=== PATIENT | female | born 1990 | race Caucasian/White ===

== ENCOUNTER 2022-03-01 10:57 | Inpatient (IN) | payer OTHER, SELFPAY ==
[2022-03-01] VITALS (193 sets, daily range): BP systolic 90–147; BP diastolic 49–110; PULSE 75–163; TEMP 36.6–38.3; O2SAT 72–100; BMI 36.6
--- NOTE | 2022-03-01 11:41 | P.HP_ITS ---
Obstetrics - Admit Note Admission Note: record reviewed. No pertinent additions to the history and/or any subsequent changes in the physical findings that are not consistent with the expected course of the were found. Pt admitted to [facility] at 35.1 weeks gestation, 3-/-1 Clear odorless fluid, hx obesity, hyperthyroid, GBS unknown, anticipate vaginal delivery Additions to the history and/or subsequent changes in the physical findings follow. None.
[2022-03-01 11:54] LABS: Basophils Absolute Auto 0.1 K/mm3 (0.0-0.1); Basophils Percent Auto 0.3 % (0.2-1.2); Eosinophils Absolute Auto 0.1 K/mm3 (0-0.3); Eosinophils Percent Auto 0.4 % (0-4.4); Hematocrit 36.4 % (37.0-47.0); Hemoglobin 12.5 g/dL (12.0-15.0); Immature Granulocyte Absolute 0.14 K/mm3 (0.00-0.031); Immature Granulocyte Percent A 0.7 % (0-0.5); Lymphocytes Absolute Auto 1.45 K/mm3 (0.9-3.2); Lymphocytes Percent Auto 7.6 % (18.3-44.2); Mean Corpuscular HGB Conc 34.3 g/dl (32-36); Mean Corpuscular Hemoglobin 30.7 pg (26-34); Mean Corpuscular Volume 89.4 fl (80-100); Monocytes Absolute Auto 0.8 K/mm3 (0.1-0.6); Monocytes Percent Auto 4.2 % (2.6-8.5); Neutrophils Absolute Auto 16.5 K/mm3 (1.3-6.7); Neutrophils Percent Auto 86.8 % (45.5-73.1); Platelet Count Result 169 k/mm3 (150-375); Red Blood Count 4.07 M/mm3 (4.2-5.4); Red Cell Distribution Width 12.9 % (11.5-14.5)
[2022-03-01] MEDS: fentaNYL CITRATE INJ (*CRX) 100 MCG/2 ML VIAL IV PUSH (11:58)
[2022-03-01] MEDS: LACTATED RINGERS 1,000 ML 125 ML IV CONT ×2 (11:59→16:06)
[2022-03-01] MEDS: AMPICILLIN 2 GM/NS 100 ML 2 GM/100 ML BAG IVPB (12:01)
--- NOTE | 2022-03-01 12:31 | WPDANESEPPF ---
Anes - Initial Pre Proc Eval Date/Time: 03/01/22 12:31 Surgeon: Kari Reinoso MD Pre Op Diagnosis: CONTRACTIONS Patient Data Age: 31 Gender: F Height: 1.57 m Weight: 91 kg Last Vital Signs Pulse 83 03/01/22 12:31 BP 131/84 03/01/22 12:31 O2 Del Method Room Air 03/01/22 12:06 Allergies Allergy/AdvReac Type Severity Reaction Status Date / Time No Known Allergies Allergy Verified 03/01/22 11:36 Home Medications Medication Instructions Recorded Confirmed Type vit no.133-ferrous 1 tablet PO DAILY 03/01/22 03/01/22 History fumarate 28 mg-folic acid 800 mcg tablet () Laboratory Tests 03/01/22 03/01/22 03/01/22 11:38 11:38 11:38 WBC 19.0 K/mm3 H K/mm3 (4.5-10.0) RBC 4.07 M/mm3 L M/mm3 (4.2-5.4) Hgb 12.5 g/dL g/dL (12.0-15.0) Hct 36.4 % L % (37.0-47.0) MCV 89.4 fl fl (80-100) MCH 30.7 pg pg (26-34) MCHC 34.3 g/dl g/dl (32-36) RDW 12.9 % % (11.5-14.5) Plt Count 169 k/mm3 k/mm3 (150-375) MPV 12.0 fl H fl (7.4-10.4) Immature Gran % (Auto) 0.7 % H % (0-0.5) Neut % (Auto) 86.8 % H % (45.5-73.1) Lymph % (Auto) 7.6 % L % (18.3-44.2) Robertson % (Auto) 4.2 % % (2.6-8.5) Eos % (Auto) 0.4 % % (0-4.4) Baso % (Auto) 0.3 % % (0.2-1.2) Lymph # (Auto) 1.45 K/mm3 K/mm3 (0.9-3.2) Robertson # (Auto) 0.8 K/mm3 H K/mm3 (0.1-0.6) Eos # (Auto) 0.1 K/mm3 K/mm3 (0-0.3) Baso # (Auto) 0.1 K/mm3 K/mm3 (0.0-0.1) Abs Immat Gran (auto) 0.14 K/mm3 H K/mm3 (0.00-0.031) Absolute Neuts (auto) 16.5 K/mm3 H K/mm3 (1.3-6.7) Absolute Nucleated RBC 0.0 K/mm3 K/mm3 (0.0-0.012) Nucleated RBC % 0.0 % % (0.0-0.2) RPR Pending Blood Type O Positive Antibody Screen Pending Patient hx anesthesia problems: none Family hx anesthesia problems: none Results Review: All pre-operative results and documents have been reviewed as part of the pre-operative evaluation. [facility], LAT[facility] Social History Social History Substance use: never Has the Lack of Transportation Kept You From Medical Appointments or From Getting Medications?: No Within the Past 12 Months, Were You Worried Whether Your Food Would Run Out Before You Got Money to Buy More?: Never True What is Your Housing Situation Today?: I Have Housing Are You Worried That in the Next 2 Months, You May Not Have Your Own Housing to Live In?: No Do You Have Trouble Paying Your Heating Or Electricity Bill?: No Do You Have Trouble Paying For Medicines?: No Are You Currently Unemployed and Looking for Work?: No Highest Level of Education Completed: High School Diploma/GED Do You Have Trouble With Childcare or the Care of a Family Member?: No Spiritual care concerns: No Anes - Eval Final PreProcedure Day of Procedure 03/01/22 12:31 Patient weight: overweight Heart: regular rate and rhythm Lungs: clear to auscultation and normal air movement Airway: Mallampati scale class II Neurological: alert and oriented Last oral intake: >/= 8 hours ASA classification: II Emergent: no Anesthetic plan: proceed Anesthesia type and monitoring: regional epidural Results Review: All pre-operative results and documents have been reviewed as part of the pre-operative evaluation. Informed Consent: The patient's anesthetic plan and its attendant risks and benefits were discussed with the patient/family/POA. Questions were solicited and answers provided to the satisfaction of the patient/family/POA.
[2022-03-01] MEDS: ONDANSETRON INJ 4 MG/2 ML VIAL IV PUSH (15:45)
[2022-03-01] MEDS: AMPICILLIN 1 GM/NS 50 ML 1 GM/50 ML BAG IVPB (16:05)
[2022-03-01] MEDS: OXYTOCIN 30 UNITS/NS 500 ML 30 UNITS/500 ML BAG 999 UNITS IV CONT ×2 (20:38→23:15)
--- NOTE | 2022-03-01 20:52 | PM.OBPRVD ---
OB - Delivery Note Procedure Delivery date: 03/01/22 Procedure: Events: Premature Rupture of Membranes Intrapartal Events: Chorioamnionitis Induction method: None Delivery augmentation: Pitocin Delivery monitor: External FHT and External Uterine Route of delivery: Laceration Description: None Specimen: Yes Quantitative Blood Loss (ml): 210 Anesthesia type: Epidural Disposition: Floor [place] Baby Date of : 03/01/22 Time of : 20:38 Weeks of gestation at delivery: 35 gender: Female Weight (pounds): 5 Weight (ounces): 7 presentation: vertex position: Right Occiput Anterior Placenta delivery description: Spontaneous, Manual Removal and Other (placenta had foul odor, will treat for presumed chorio. nursery informed) Cord Vessel Description: 3 Vessels and Clamped/Cut score one minute: 6 score five minutes: 8
[2022-03-01] MEDS: CLINDAMYCIN 900 MG/D5W 50 ML 900 MG/50 ML PIGGYBACK 50 MG IVPB (21:41)
[2022-03-01] MEDS: miSOPROStol 200 MCG TABLET 1000 MCG (23:22)
[2022-03-01] MEDS: fentaNYL CITRATE INJ (*CRX) 100 MCG/2 ML VIAL 50 MCG IV PUSH ×2 (23:28→23:43)
[2022-03-01] MEDS: METHYLERGONOVINE MALEATE 0.2 MG/ML VIAL IM (23:46)
[2022-03-02] VITALS (20 sets, daily range): BP systolic 90–124; BP diastolic 49–85; PULSE 75–141; RESP 16–18; TEMP 36.3–38.4; O2SAT 95–100
[2022-03-02] MEDS: GENTAMICIN SULFATE INJ 330 MG in DEXTROSE 5% 100 ML 108.25 MG IVPB (01:00)
--- NOTE | 2022-03-02 01:08 | PM.OBPNVD ---
OB - PN: Subj Subjective Date/time seen: 03/02/22 01:08 called back to evaluate bleeding OB - PN: Obj Data Labs CBC & Chem 7: 03/01/22 11:38 Labs: Laboratory Results - last 24 hr 03/01/22 03/01/22 11:38 11:38 WBC 19.0 H RBC 4.07 L Hgb 12.5 Hct 36.4 L MCV 89.4 MCH 30.7 MCHC 34.3 RDW 12.9 Plt Count 169 MPV 12.0 H Immature Gran % (Auto) 0.7 H Neut % (Auto) 86.8 H Lymph % (Auto) 7.6 L [place] % (Auto) 4.2 Eos % (Auto) 0.4 Baso % (Auto) 0.3 Lymph # (Auto) 1.45 [place] # (Auto) 0.8 H Eos # (Auto) 0.1 Baso # (Auto) 0.1 Abs Immat Gran (auto) 0.14 H Absolute Neuts (auto) 16.5 H Absolute Nucleated RBC 0.0 Nucleated RBC % 0.0 Blood Type O Positive Antibody Screen Negative OB - PN A/P Assessment and Plan (1) hemorrhage: Code(s): O72.1 - Other immediate hemorrhage Status: Acute Plan 1. pp hemorrhage cont to monitor labs in am Time Spent With Patient Time: Total time spent is greater than 50% in coordination of care (as documented) at patient's floor/unit and/or counseling patient: Review of Systems Genitourinary: Comments: Speculum placed and clots removed with ring forceps, US revealed endometrial stripe small amount of fluid, fundus firm, bleeding stable
--- NOTE | 2022-03-02 01:46 | OBPPTRN ---
03/02/2022 at 0100 Patient transferred in wheelchair to post room #288. Support person present. Oriented to unit, room, information board, rooming in, admission packet and security measures. Patient verbalizes understanding.
[2022-03-02] MEDS: OXYTOCIN 30 UNITS/NS 500 ML 30 UNITS/500 ML BAG 999 UNITS IV CONT (01:50)
[2022-03-02] MEDS: IBUPROFEN 600 MG TABLET PO ×2 (05:34→12:50)
[2022-03-02 06:37] LABS: Basophils Absolute Auto 0.1 K/mm3 (0.0-0.1); Basophils Percent Auto 0.3 % (0.2-1.2); Eosinophils Absolute Auto 0.1 K/mm3 (0-0.3); Eosinophils Percent Auto 0.3 % (0-4.4); Hematocrit 26.8 % (37.0-47.0); Hemoglobin 9.2 g/dL (12.0-15.0); Immature Granulocyte Absolute 0.15 K/mm3 (0.00-0.031); Immature Granulocyte Percent A 0.8 % (0-0.5); Lymphocytes Absolute Auto 2.17 K/mm3 (0.9-3.2); Lymphocytes Percent Auto 11.2 % (18.3-44.2); Mean Corpuscular HGB Conc 34.3 g/dl (32-36); Mean Corpuscular Hemoglobin 31.4 pg (26-34); Mean Corpuscular Volume 91.5 fl (80-100); Mean Platelet Volume 12.5 fl (7.4-10.4); Monocytes Absolute Auto 1.3 K/mm3 (0.1-0.6); Monocytes Percent Auto 6.9 % (2.6-8.5); Neutrophils Absolute Auto 15.6 K/mm3 (1.3-6.7); Neutrophils Percent Auto 80.5 % (45.5-73.1); Platelet Count Result 154 k/mm3 (150-375); Red Blood Count 2.93 M/mm3 (4.2-5.4); Red Cell Distribution Width 12.9 % (11.5-14.5); White Blood Count 19.4 K/mm3 (4.5-10.0)
--- NOTE | 2022-03-02 07:34 | P.PNOB_ITS ---
OB - PN: Subj Subjective Date/time seen: 03/02/22 07:34 Patient comments: no complaints and pain well controlled baby status: doing well and bottle feeding well OB - PN: Obj Data Labs CBC & Chem 7: 03/02/22 05:27 Labs: Laboratory Results - last 24 hr 03/01/22 03/01/22 03/02/22 11:38 11:38 05:27 WBC 19.0 H RBC 4.07 L Hgb 12.5 Cancelled Hct 36.4 L Cancelled MCV 89.4 MCH 30.7 MCHC 34.3 RDW 12.9 Plt Count 169 MPV 12.0 H Immature Gran % (Auto) 0.7 H Neut % (Auto) 86.8 H Lymph % (Auto) 7.6 L [place] % (Auto) 4.2 Eos % (Auto) 0.4 Baso % (Auto) 0.3 Lymph # (Auto) 1.45 [place] # (Auto) 0.8 H Eos # (Auto) 0.1 Baso # (Auto) 0.1 Abs Immat Gran (auto) 0.14 H Absolute Neuts (auto) 16.5 H Absolute Nucleated RBC 0.0 Nucleated RBC % 0.0 Blood Type O Positive Antibody Screen Negative 03/02/22 05:27 WBC 19.4 H RBC 2.93 L Hgb 9.2 L D Hct 26.8 L MCV 91.5 MCH 31.4 MCHC 34.3 RDW 12.9 Plt Count 154 MPV 12.5 H Immature Gran % (Auto) 0.8 H Neut % (Auto) 80.5 H Lymph % (Auto) 11.2 L [place] % (Auto) 6.9 Eos % (Auto) 0.3 Baso % (Auto) 0.3 Lymph # (Auto) 2.17 [place] # (Auto) 1.3 H Eos # (Auto) 0.1 Baso # (Auto) 0.1 Abs Immat Gran (auto) 0.15 H Absolute Neuts (auto) 15.6 H Absolute Nucleated RBC 0.0 Nucleated RBC % 0.0 Blood Type Antibody Screen OB - PN A/P Plan day: 1 Plan: routine care Comments: Home tomorrow. Baby 35w but doing well. Time Spent With Patient Time: Total time spent is greater than 50% in coordination of care (as documented) at patient's floor/unit and/or counseling patient: Time with patient: less than 15 minutes Exam Narrative: NAD abdomen soft, nontender, fundus firm below the umbilicus Extremities nontender, 1+ edema
[2022-03-02 08:29] LABS: Rapid Plasma Reagin Non-Reactive (NonReactive)
[2022-03-02] MEDS: DOCUSATE SODIUM 100 MG CAPSULE PO ×2 (08:50→16:37)
[2022-03-02] MEDS: POLYSACCHARIDE IRON COMPLEX 150 MG CAPSULE PO ×2 (08:50→16:37)
[2022-03-02] MEDS: AMPICILLIN 1 GM/NS 50 ML 1 GM/50 ML BAG IVPB ×4 (08:51→19:49)
[2022-03-02 08:58] LABS: Estimated CRCL calculation 103 ml/min; Estimated Glomerular Filt Rate > 60
[2022-03-02] MEDS: CLINDAMYCIN 900 MG/D5W 50 ML 900 MG/50 ML PIGGYBACK 50 MG IVPB ×2 (09:42→17:21)
[2022-03-02 12:45] LABS: Gentamicin Random 1.1 ug/mL (5.0-12.0)
--- NOTE | 2022-03-02 14:04 | WPDANLDPN2 ---
Anes-Prog Note L&D Date/Time: 03/02/22 14:04 Comfortable throughout: labor and delivery Neuraxial method: epidural Epidural/Spinal procedure site: clean & non-tender Neuro status: Neuro function grossly intact. Cardiovascular status: normal Respiratory status: normal Airway patency: baseline Mental status: baseline Post-Op hydration status: normal Vital Signs: Last Vital Signs Temp 36.4 C 03/02/22 11:43 Pulse 94 03/02/22 11:43 Resp 16 03/02/22 11:43 BP 109/55 L 03/02/22 11:43 Pulse Ox 99 03/02/22 11:43 O2 Del Method Room Air 03/01/22 12:06 Pain score (VAS): 2 I/O: Intake & Output 03/01/22 03/02/22 03/02/22 23:59 07:59 15:59 Intake Total 1500 50 Output Total 210 938 Balance 1290 -938 50 Post-procedural complaints: none Patient feedback: Patient satisfied with anesthetic care.
[2022-03-03] MEDS: AMPICILLIN 1 GM/NS 50 ML 1 GM/50 ML BAG IVPB ×3 (00:23→07:47)
[2022-03-03 00:30] VITALS: BP 88/52; PULSE 88; RESP 18; TEMP 36.9; O2SAT 99
[2022-03-03] MEDS: CLINDAMYCIN 900 MG/D5W 50 ML 900 MG/50 ML PIGGYBACK 50 MG IVPB ×2 (01:04→09:27)
[2022-03-03] MEDS: SODIUM CHLORIDE 0.9% IV 250 ML 30 ML (01:05)
[2022-03-03] MEDS: GENTAMICIN SULFATE INJ 330 MG in DEXTROSE 5% 100 ML 100 MG IVPB (02:14)
[2022-03-03 04:28] VITALS: BP 108/54; PULSE 80; RESP 18; TEMP 36.6; O2SAT 100
[2022-03-03] MEDS: TETANUS,DIPHTHERIA,AC PERTUSSIS ADULT (0.5 ML) BOOSTRIX IM (04:31)
[2022-03-03] MEDS: DOCUSATE SODIUM 100 MG CAPSULE PO ×2 (07:49→16:46)
[2022-03-03] MEDS: POLYSACCHARIDE IRON COMPLEX 150 MG CAPSULE PO ×2 (07:49→16:46)
[2022-03-03] MEDS: IBUPROFEN 600 MG TABLET PO (07:49)
--- NOTE | 2022-03-03 07:57 | PM.OBPNVD ---
OB - PN: Subj Subjective Date/time seen: 03/03/22 07:57 Patient comments: no complaints and pain well controlled baby status: doing well and bottle feeding well [place] feeding status: exclusively bottle feeding Narrative: Afebrile since abx started. CBC still pending. Feeling ok. OB - PN: Obj Data Labs CBC & Chem 7: 03/02/22 05:27 03/02/22 08:34 Labs: Laboratory Results - last 24 hr 03/01/22 03/02/22 03/02/22 11:38 08:34 12:12 Creatinine 0.70 Estim Creat Clear Calc 103 Estimated GFR > 60 Random Gentamicin 1.1 L RPR Non-reactive OB - PN A/P Assessment and Plan (1) Chorioamnionitis, delivered, current hospitalization: Code(s): O41.1290 - Chorioamnionitis, unspecified trimester, not applicable or unspecified Status: Acute (2) , delivered: Code(s): O80 - Encounter for full-term uncomplicated delivery Status: Acute Plan day: 2 Plan: routine care Comments: may stop abx if WBC improved- CBC pending Will hold DC until tomorrow to make sure afebrile once abx DCed. Time Spent With Patient Time: Total time spent is greater than 50% in coordination of care (as documented) at patient's floor/unit and/or counseling patient: Time with patient: less than 15 minutes Exam Narrative: NAD abdomen soft, nontender, fundus firm below the umbilicus Extremities nontender, 1+ edema
[2022-03-03 08:15] VITALS: BP 103/51; PULSE 65; RESP 16; TEMP 36.5; O2SAT 99
[2022-03-03 09:14] LABS: Basophils Percent Auto 0.3 % (0.2-1.2); Eosinophils Absolute Auto 0.2 K/mm3 (0-0.3); Eosinophils Percent Auto 1.9 % (0-4.4); Hematocrit 24.6 % (37.0-47.0); Hemoglobin 8.1 g/dL (12.0-15.0); Immature Granulocyte Absolute 0.06 K/mm3 (0.00-0.031); Immature Granulocyte Percent A 0.5 % (0-0.5); Lymphocytes Absolute Auto 1.66 K/mm3 (0.9-3.2); Lymphocytes Percent Auto 14.4 % (18.3-44.2); Mean Corpuscular HGB Conc 32.9 g/dl (32-36); Mean Corpuscular Hemoglobin 30.5 pg (26-34); Mean Corpuscular Volume 92.5 fl (80-100); Monocytes Absolute Auto 0.8 K/mm3 (0.1-0.6); Monocytes Percent Auto 6.5 % (2.6-8.5); Neutrophils Absolute Auto 8.8 K/mm3 (1.3-6.7); Neutrophils Percent Auto 76.4 % (45.5-73.1); Platelet Count Result 155 k/mm3 (150-375); Red Blood Count 2.66 M/mm3 (4.2-5.4); Red Cell Distribution Width 13.3 % (11.5-14.5); White Blood Count 11.5 K/mm3 (4.5-10.0)
[2022-03-03 19:47] VITALS: BP 111/60; PULSE 98; RESP 16; TEMP 36.9; O2SAT 100
--- NOTE | 2022-03-04 07:00 | PC.NURSE ---
PT introductions made and plan of care discussed per post , pain management, bottle feeding, daily care activities and pending discharge to home. PT sole recipient of such instructions and no barriers to learning identified at this time. PT received such instructions per one to one discussion, mom baby care guide and demonstrations this shift. PT verbalized understanding of such care.
--- NOTE | 2022-03-04 07:39 | P.PNOB_ITS ---
OB - PN: Subj Subjective Date/time seen: 03/04/22 07:39 s/p vaginal delivery day 3 OB - PN: Obj Data Labs CBC & Chem 7: 03/03/22 08:52 03/02/22 08:34 Labs: Laboratory Results - last 24 hr 03/03/22 08:52 WBC 11.5 H RBC 2.66 L Hgb 8.1 L Hct 24.6 L MCV 92.5 MCH 30.5 MCHC 32.9 RDW 13.3 Plt Count 155 MPV 12.0 H Immature Gran % (Auto) 0.5 Neut % (Auto) 76.4 H Lymph % (Auto) 14.4 L [place] % (Auto) 6.5 Eos % (Auto) 1.9 Baso % (Auto) 0.3 Lymph # (Auto) 1.66 [place] # (Auto) 0.8 H Eos # (Auto) 0.2 Baso # (Auto) 0.0 Abs Immat Gran (auto) 0.06 H Absolute Neuts (auto) 8.8 H Absolute Nucleated RBC 0.0 Nucleated RBC % 0.0 OB - PN A/P Plan day: 3 Plan: routine care and discharge home Time Spent With Patient Time: Total time spent is greater than 50% in coordination of care (as documented) at patient's floor/unit and/or counseling patient: Review of Systems Review of Systems: All systems reviewed & are unremarkable except as noted in HPI and below Exam Const: General: cooperative, healthy appearing and comfortable
[2022-03-04 07:50] VITALS: BP 98/56; PULSE 76; RESP 16; TEMP 36.6; O2SAT 100
[2022-03-04 09:00] VITALS: PULSE 76; RESP 16; O2SAT 100
[2022-03-04] MEDS: DOCUSATE SODIUM 100 MG CAPSULE PO (09:28)
[2022-03-04] MEDS: POLYSACCHARIDE IRON COMPLEX 150 MG CAPSULE PO (09:28)
--- NOTE | 2022-03-04 09:33 | PC.NURSE ---
On 03/04/22, the student, Dejah Tucker, provided care and completed [facility] documentation on this patient. I have reviewed the student's documentation and agree with the findings.
--- NOTE | 2022-03-04 11:00 | PC.NURSE ---
PT received discharge instructions per protocol and verbalized understanding of such care.
--- NOTE | 2022-03-04 11:27 | PC.NURSE ---
PT discharged to no care bed status due to . PT aware of status and ability to order meals and have clean linens etc. Follow up appts confirmed.
[2022-03-05 11:26] VITALS: BP 115/65; PULSE 69; RESP 20; TEMP 36.8; O2SAT 98
--- NOTE | 2022-03-06 07:39 | P.DS_ITS ---
DS: Admitting Diagnosis Discharge Date 03/04/22 Admitting Diagnosis PPROM, labor OB - DS: Summary OB Procedures : None OB Procedures Intrapartum: Spontaneous Vag Delivery OB Procedures: : None Time Spent with Patient Time attestation: Total time spent providing and/or coordinating discharge services: DS: Data Data Completed and Pending Pending studies at discharge: Pending at discharge 03/03/22 07:55 Surgical [PTH] Routine Discharge Plan Discharge Attending physician on discharge: Kari Reinoso Discharging Clinician: Dahlia Shirley Patient Disposition: Home, Self-Care Activity: pelvic rest Diet: regular Discharge Instructions: Education: Mom and Baby Guide Given to: Mother Follow-Up: Call your delivering provider's office for an appointment to be seen in: 4 Weeks Mom and baby should come to the [facility] for the follow-up appointment. Appointment Date/Time: March 05, 2022 at 11:00 am What to expect at your follow-up visit: Blood Pressure Check Call [phone] if you are unable to keep your appointment time. BREAST CARE: * Wear a snug supportive bra. * For engorgement discomfort: Bottle Feeding: * May apply ice packs PERINEAL CARE: * Until bleeding stops, use your paula bottle after urinating * Change your pad frequently throughout the day * You may take sitz baths several times a day (fill your bathtub with warm water and soak for 20 minutes.) Do NOT bathe in the water * No tub baths until seen by your physician - You may shower ACTIVITY: * Rest as much as possible. * Do not exercise or lift anything heavier than your baby (such as laundry or other children.) * Avoid stairs or driving as much as possible. * Do not put anything into the vagina. No douching, tampons, or sexual activity until seen by physician. NOTIFY PHYSICIAN IF YOU HAVE ANY QUESTIONS OR IF ANY OF THE FOLLOWING SYMPTOMS O CCUR: * If your perineum becomes red, swollen, or more painful than what you have experienced in the hospital. * If your vaginal bleeding becomes foul smelling. * If your vaginal bleeding becomes more heavy than a period or if your bleeding changes from pink to bright red. However, you may pass an occasional walnut- sized clot once or twice for the first week . * If you experience a sharp, shooting pain in you calves. * If you discover a hard, reddened area on your breast or if you experience flu- like symptoms. * If you have a fever of 100.4 or greater DIET: * Eat regular, well-balanced meals. * Drink plenty of fluids daily. If , drink to thirst. Patient Instructions: Antibiotic Form Stand Alone Forms: General Discharge Information Follow-up/Referrals: Dahlia Shirley CNM [Certified Nurse Conciliator] - 4 Weeks Discharge Medications: New ibuprofen 600 mg Tablet 600 mg PO Q6H PRN (Reason: Cramping) Qty: 30 0RF Continued 28-800 mg-mcg Tablet 1 tablet PO DAILY Date of admission: 03/01/22 11:16 Primary Care Provider: PHYSICIAN,EQUIPMENT VALIDATION ENGINEER Admitting Provider: Kari Reinoso Attending physician on admission: Kari Reinoso Condition: Stable
== END 2022-03-04 11:27 | disposition home or self-care (01) | DRG 560 ==
LOC: ANHLDR 11:22 → ANHOB2 03-02 01:05
PROVIDERS: Advanced Practice Midwife; Obstetrics & Gynecology; Admitting Provider Obstetrics & Gynecology; Visit Provider Obstetrics & Gynecology
DX: O42.913 Preterm premature rupture of membranes, unspecified as to length of time between rupture and onset of labor, third trimester (principal); O41.1230 Chorioamnionitis, third trimester, not applicable or unspecified; O60.14X0 Preterm labor third trimester with preterm delivery third trimester, not applicable or unspecified; Z37.0 Single live birth; Z3A.35 35 weeks gestation of pregnancy; Z23 Encounter for immunization; O99.284 Endocrine, nutritional and metabolic diseases complicating childbirth; E05.90 Thyrotoxicosis, unspecified without thyrotoxic crisis or storm; O99.214 Obesity complicating childbirth; E66.9 Obesity, unspecified; O72.1 Other immediate postpartum hemorrhage
CPT/HCPCS: 36415; 80170; 82565; 84112; 85025; 86592; 86850; 86900; 86901; 88307; 90471; 90686; 90715; A9270; G0008; J0131; J0290; J1580; J2210; J2405; J2590; J2795; J3010; J7050; J7120

== ENCOUNTER 2022-04-23 10:31 | Emergency (ER) | payer OTHER, SELFPAY ==
[2022-04-23 10:54] VITALS: BP 113/65; PULSE 71; RESP 18; TEMP 36.8; O2SAT 99
[2022-04-23 11:37] LABS: Influenza A QL RT-PCR Negative (Negative); Influenza B QL RT-PCR Negative (Negative); SARS-CoV-2 RNA PCR Positive
[2022-04-23 12:04] LABS: Strep Group A RT-PCR NOT DETECTED (Negative)
--- NOTE | 2022-04-23 12:44 | ED.FEVER ---
HPI - Fever General Chief Complaint: Fever Stated Complaint: sore throat, fever Time Seen by Provider: 04/23/22 11:13 History of Present Illness HPI Narrative: Pt presents with fever and runny nose and sore throat for a few days. Pt denies vomiting or WHITAKER. Related Data Home Medications Medication Instructions Recorded Confirmed vit no.133-ferrous 1 tablet PO DAILY 03/01/22 03/01/22 fumarate 28 mg-folic acid 800 mcg tablet () Allergies Allergy/AdvReac Type Severity Reaction Status Date / Time No Known Allergies Allergy Verified 03/01/22 11:36 Review of Systems Review of Systems: All systems reviewed & are unremarkable except as noted in HPI and below PMFSH Social History Social History Substance use: never Lack of Transportation: No Lack of Food: Never True Current Housing: I Have Housing Concerned About Future Housing: No Difficulty Paying Gas/Electric Bills: No Difficulty Paying for Meds: No Currently Unemployed: No Education: High School Diploma/GED Difficulty w/ Childcare or Family Care: No Spiritual care concerns: No Exam Const: General: healthy appearing Nutritional Appearance: well nourished Orientation/consciousness: patient oriented x3 Limitations: no limitations HENMT: Face/Nose/Sinus: Nasal discharge present Mouth: Yes Normal oral and palatal mucosa present Throat: posterior oropharynx normal Eyes: Conjunctivae: conjunctivae normal EOM: EOMs intact bilaterally Chest: Chest palpation & inspection: normal inspection of the chest Resp: Effort & Inspection: normal respiratory effort Auscultation: clear to auscultation bilaterally Cardio: Rate: regular rate Rhythm: regular rhythm GI: GI Palp: Yes Soft to palpation Auscultation: normal bowel sounds Skin: General skin exam: normal color Rashes: no rashes Neuro: General: patient oriented x3 Cranial nerves: Yes Nystagmus not present Speech: normal speech Extrem: General: normal to inspection and no clubbing, cyanosis or edema Psych: Appearance: grossly normal and well kempt Mental Status: mental status grossly normal Affect: normal affect Attitude: cooperative Course Vital Signs Vital signs: Vital Signs Temperature 98.3 F 04/23/22 10:54 Pulse Rate 71 04/23/22 10:54 Respiratory Rate 18 04/23/22 10:54 Blood Pressure 113/65 04/23/22 10:54 Pulse Oximetry 99 04/23/22 10:54 Oxygen Delivery Room Air 04/23/22 10:54 Temperature 98.3 F 04/23/22 10:54 Pulse Rate 71 04/23/22 10:54 Respiratory Rate 18 04/23/22 10:54 Blood Pressure 113/65 04/23/22 10:54 Pulse Oximetry 99 04/23/22 10:54 Oxygen Delivery Room Air 04/23/22 10:54 MDM - Fever Differential Diagnosis Differential diagnosis: Likely fever of unknown origin, viral infection, influenza and other (covid) Lab Data Attestation: I reviewed the patient's lab results. Lab results narrative: covid positive Labs: Lab Results 04/23/22 04/23/22 Range/Units 10:53 11:33 Influenza A (RT-PCR) Negative (Negative) Influenza B (RT-PCR) Negative (Negative) SARS-CoV-2 RNA (RT-PCR) Positive A Group A Strep (PCR) Not detected (Negative) Discharge Plan Discharge Clinical Impression: COVID Patient Disposition: Home, Self-Care Condition: Stable Instructions: Antibiotic Form, COVID-19 (Coronavirus Disease 2019) (ED) Prescriptions: No Action 28-800 mg-mcg Tablet 1 tablet PO DAILY ibuprofen 600 mg Tablet 600 mg PO Q6H PRN (Reason: Cramping) Qty: 30 0RF Follow-up/Referrals: PHYSICIAN,PRESCHOOL ADVISER [Primary Care Provider] -
== END 2022-04-23 13:32 | disposition home or self-care (01) ==
PROVIDERS: Physician Assistant; Emergency Provider Emergency Medicine
DX: U07.1 COVID-19 (principal)
CPT/HCPCS: 87636; 87651; 99283

== ENCOUNTER 2022-06-08 10:35 | Emergency (ER) | payer OTHER, SELFPAY ==
[2022-06-08 10:35] VITALS: BP 145/81; PULSE 86; PULSE 90; RESP 16; RESP 18; TEMP 36.9; O2SAT 99
--- NOTE | 2022-06-08 10:52 | ED.GENADULT ---
HPI - General Adult General Chief complaint: Ear Stated complaint: left ear bleeding Time Seen by Provider: 06/08/22 10:46 History of Present Illness HPI narrative: The patient is an otherwise healthy 31-year-old woman who is not currently breast feeding but is . Since yesterday, the patient has noted discharge from her left ear, with some blood initially now more brownish discoloration. Decreased hearing from the left ear. Tender to touch of the external ear. Also with congestion for the last 2 days. No symptoms in the right ear. No fevers or chills. No sore throat. Related Data Home Medications Medication Instructions Recorded Confirmed vit no.133-ferrous 1 tablet PO DAILY 03/01/22 06/08/22 fumarate 28 mg-folic acid 800 mcg tablet () Allergies Allergy/AdvReac Type Severity Reaction Status Date / Time No Known Allergies Allergy Verified 06/08/22 10:41 Review of Systems Review of Systems: All systems reviewed & are unremarkable except as noted in HPI and below Constitutional: Constitutional: Reports no additional constitutional complaints, Denies anorexia, Denies body ache(s), Denies chills, Denies excessive sweating, Denies fatigue, Denies fever(s), Denies frequent falls, Denies headache(s), Denies malaise and Denies poor appetite Eyes: Eyes: Reports no additional eye complaints, Denies blurry vision, Denies change in vision, Denies irritation, Denies itchy eyes and Denies photophobia ENT: Reports system reviewed and no additional complaints, except as documented, Reports Normal hearing present ( normal on the right, abnormal on the left), Denies change in voice, Denies dysphagia, Denies vertigo, Denies dizziness, Reports ear discharge ( left), Reports otalgia ( Left), Denies headache(s), Denies hearing loss, Denies hoarseness, Reports nasal congestion, Denies neck pain, Denies sinus pressure, Denies sore throat and Denies throat swelling Cardiovascular: Cardiovascular: Reports no additional cardiovascular complaints, Denies chest pain, Denies syncope, Denies rapid heart rate, Denies irregular heart rhythm, Denies leg edema, Denies dyspnea and Denies slow heart rate Respiratory: Respiratory: Reports no additional respiratory complaints, Denies cough, Denies dyspnea, Denies stridor and Denies wheezing Gastrointestinal: Gastrointestinal: Reports no additional gastrointestinal complaints, Denies abdominal pain, Denies melena, Denies hematochezia, Denies dysphagia, Denies diarrhea, Denies nausea and Denies vomiting Genitourinary: Genitourinary: Denies hematuria, Denies urinary frequency, Denies dysuria, Denies flank pain and Denies urinary urgency Musculoskeletal: Musculoskeletal: Reports no additional musculoskeletal complaints, Denies abnormal gait, Denies back pain, Denies myalgias, Denies arthralgias, Denies joint swelling, Denies limited range of motion, Denies muscle cramps, Denies muscle weakness, Denies neck pain and Denies numbness Integumentary/Breasts: Skin/Breast: Reports system reviewed and no additional complaints, except as docu, Denies breast pain, Denies change in pigmentation, Denies pruritus, Denies erythema and Denies wounds Neurologic: Reports system reviewed and no additional complaints, except as documented, Reports Normal hearing present, Denies Abnormal speech present, Denies abnormal gait, Denies confusion, Denies vertigo, Denies dizziness, Denies syncope, Denies frequent falls, Denies headache(s), Denies focal weakness, Denies numbness and Denies paresthesias Psychiatric: Psychiatric: Reports no additional psychiatric complaints and Denies confusion Endocrine: Endocrine: Reports no additional endocrine complaints, Denies cold intolerance, Denies excessive sweating, Denies fatigue and Denies heat intolerance Hematologic/Lymphatic: Hematologic/Lymphatic: Reports no additional hematologic/lymphatic complaints, Denies easy bleeding and Denies easy bruising Allergic/Immunologi
[2022-06-08] MEDS: AMOXICILLIN 500 MG CAPSULE PO (11:25)
== END 2022-06-08 11:30 | disposition home or self-care (01) ==
LOC: CHSED 11:01
PROVIDERS: Emergency Provider Emergency Medicine
DX: H60.92 Unspecified otitis externa, left ear (principal)
CPT/HCPCS: 99283; A9270

== ENCOUNTER 2023-05-19 06:38 | Emergency (ER) | payer OTHER, SELFPAY ==
[2023-05-19] VITALS (19 sets, daily range): BP systolic 93–120; BP diastolic 42–76; PULSE 60–88; RESP 12–23; TEMP 36.9; O2SAT 97–99
--- NOTE | 2023-05-19 07:02 | PC.NURSE ---
Report to ZOILA Syed.
--- NOTE | 2023-05-19 07:03 | ED.DIZZY ---
HPI - Dizziness General Chief Complaint: Dizziness Stated Complaint: Dizzy Time Seen by Provider: 05/19/23 07:03 Source: patient and family Mode of arrival: ambulatory Limitations: no limitations History of Present Illness HPI Narrative: 32-year-old female with no significant past medical history presents to the ER with a 1 day history of -- dizziness/vertigo. Her vertigo started yesterday evening and lasted for few hours with spontaneous resolution. It happened again this morning with spontaneous resolution. During these episodes of vertigo the patient has nausea. No focal neuro deficits. No ear pain/discharge. No prior episodes. No chest pain or shortness of breath. MD elicited complaint: vertigo Onset (ago): day(s) ( Started 1 day ago) Timing: gradual onset Severity: mild Description: sense of movement and room spinning History of similar symptoms: No Exacerbating factors: nothing Relieving factors: nothing Associated symptoms: denies other symptoms and nausea Related Data Home Medications Medication Instructions Recorded Confirmed multivitamin with minerals-folic 1 tablet PO DAILY 05/19/23 05/19/23 acid 0.4 mg tablet Allergies Allergy/AdvReac Type Severity Reaction Status Date / Time No Known Allergies Allergy Verified 05/19/23 06:42 Review of Systems Review of Systems: All systems reviewed & are unremarkable except as noted in HPI and below Constitutional: Constitutional: Reports as per HPI and Reports no additional constitutional complaints Eyes: Eyes: Reports as per HPI and Reports no additional eye complaints ENT: Reports system reviewed and no additional complaints, except as documented and Reports as per HPI Cardiovascular: Cardiovascular: Reports as per HPI and Reports no additional cardiovascular complaints Respiratory: Respiratory: Reports as per HPI and Reports no additional respiratory complaints Gastrointestinal: Gastrointestinal: Reports as per HPI and Reports no additional gastrointestinal complaints Genitourinary: Genitourinary: Reports no additional female genitourinary complaints and Reports as per HPI Comments: the patient is on control and does not have regular periods. Musculoskeletal: Musculoskeletal: Reports no additional musculoskeletal complaints and Reports as per HPI Integumentary/Breasts: Skin/Breast: Reports system reviewed and no additional complaints, except as docu and Reports as per HPI Neurologic: Reports system reviewed and no additional complaints, except as documented and Reports as per HPI Psychiatric: Psychiatric: Reports no additional psychiatric complaints and Reports as per HPI Endocrine: Endocrine: Reports no additional endocrine complaints and Reports as per HPI Hematologic/Lymphatic: Hematologic/Lymphatic: Reports no additional hematologic/lymphatic complaints and Reports as per HPI Allergic/Immunologic: Allergic/Immunologic: Reports no additional allergic/immunologic complaints and Reports as per HPI [facility] Social History Social History Substance use: never Lack of Transportation: No Lack of Food: Never True Current Housing: I Have Housing Concerned About Future Housing: No Difficulty Paying Gas/Electric Bills: No Difficulty Paying for Meds: No Currently Unemployed: No Education: High School Diploma/GED Difficulty w/ Childcare or Family Care: No Spiritual care concerns: No Exam Narrative: patient is not orthostatic. Lying blood pressure 115/74 with a heart rate of 69. Standing blood pressure is 114/74 with a heart rate of 75. Const: General: healthy appearing and no acute distress Orientation/consciousness: patient oriented x3 Limitations: no limitations HENMT: Head: normal to inspection Ears: TM's normal bilaterally Face/Nose/Sinus: Normal external nose present Face and sinus: normal facial exam Mouth: Yes Normal oral and palatal mucos
--- NOTE | 2023-05-19 07:36 | ECG_ITS ---
Measurements Intervals [place] Rate: 63 P: 40 AR: 188 QRS: 100 QRSD: 105 T: 59 QT: 417 QTc: 429 Interpretive Statements SINUS RHYTHM RIGHT AXIS DEVIATION BASELINE ARTIFACT- I, II BORDERLINE ECG NO PREVIOUS ECG AVAILABLE FOR COMPARISON Electronically Signed On 05-19-2023 8:30:17 [employer] by Braeden Dobbins D.O.
[2023-05-19 08:02] LABS: Basophils Absolute Auto 0.05 K/mm3 (0.00-0.10); Basophils Percent Auto 0.6 % (0.0-1.0); Eosinophils Absolute Auto 0.19 K/mm3 (0.02-0.50); Eosinophils Percent Auto 2.2 % (1.0-6.0); Hematocrit 39.6 % (35.0-49.0); Hemoglobin 13.1 g/dL (12.0-15.0); Immature Granulocyte Absolute 0.04 K/mm3 (0.00-0.00); Immature Granulocyte Percent A 0.5 % (0.0-0.0); Lymphocytes Absolute Auto 1.52 K/mm3 (1.10-4.50); Lymphocytes Percent Auto 17.5 % (18.0-42.0); Mean Corpuscular HGB Conc 33.1 g/dL (32.0-36.0); Mean Corpuscular Hemoglobin 29.4 pg (27.0-31.0); Mean Corpuscular Volume 88.8 fL (78.0-102.0); Mean Platelet Volume 11.5 fl (9.2-11.8); Monocytes Absolute Auto 0.63 K/mm3 (0.10-0.90); Monocytes Percent Auto 7.3 % (2.0-11.0); Neutrophils Absolute Auto 6.3 K/mm3 (1.7-7.2); Neutrophils Percent Auto 71.9 % (50.0-70.0); Platelet Count Result 156 K/mm3 (150-420); Red Blood Count 4.46 M/mm3 (4.20-5.40); Red Cell Distribution Width 12.6 % (11.6-14.4); White Blood Count 8.7 K/mm3 (4.8-10.8)
[2023-05-19 08:04] LABS: Appearance Urine Clear (Clear); Bilirubin Urine Negative (Negative); Blood Urine Negative (Negative); Color Urine Yellow (Yellow); Glucose Urine UA Negative (Negative); Ketones Urine Negative (Negative); Leukocyte Esterase Ur Negative LEU/UL (Negative); Nitrate Urine Negative (Negative); Protein Urine Negative (Negative); Urobilinogen Urine 0.2 mg/dL (0.2-1.0)
[2023-05-19] MEDS: MECLIZINE HCL 25 MG TABLET PO (08:08)
[2023-05-19 08:10] LABS: Add Urine Microscopic? NO
--- NOTE | 2023-05-19 08:10 | PC.NURSE ---
PT IS LYING ON STRETCHER TALKING WITH AND CHILD. NAD NOTED. PT IS AWAITING LAB RESULTS AT THIS TIME. PT DENIES ANY NEEDS OR COMPLAINTS. PT REPORTS SHE IS FEELING BETTER AT THIS TIME. PT WAS AMBULATORY TO [facility] WITHOUT ANY DIFFICULTY.
[2023-05-19 08:33] LABS: Alanine Aminotransferase 20 U/L (14-59); Albumin Level 3.5 g/dL (3.4-5.0); Alkaline Phosphatase 52 U/L (46-116); Anion Gap 7 mmol/L (8-16); Aspartate Amino Transferase < 10 U/L (15-37); Bilirubin,Total 0.6 mg/dL (0.00-1.00); Blood Urea Nitrogen 10 mg/dL (7-18); Calcium 8.2 mg/dL (8.5-10.1); Carbon Dioxide 28 mmol/L (21-32); Chloride 102 mmol/L (98-108); Estimated CRCL calculation 97 ml/min; Estimated Glomerular Filt Rate > 60; Glucose 85 mg/dL (70-99); Osmolality Calculated 282 mOsm/kg (285-295); Potassium 3.7 mmol/L (3.5-5.1); Sodium 137 mmol/L (136-145); Thyroid Stimulating Hormone 1.74 uIU/mL (0.36-3.74); Total Protein 6.8 g/dL (6.4-8.2); Troponin I < 4.0 ng/L (0.00-60.4)
== END 2023-05-19 09:00 | disposition home or self-care (01) ==
PROVIDERS: Emergency Provider Internal Medicine Critical Care Medicine
DX: H81.10 Benign paroxysmal vertigo, unspecified ear (principal)
CPT/HCPCS: 36415; 80053; 81003; 84443; 84484; 85025; 93005; 99284; A9270

== ENCOUNTER 2024-05-31 16:43 | Outpatient (RCR) | payer OTHER, SELFPAY ==
[2024-04-05 12:58] VITALS: BP 104/51; PULSE 96
== END 2024-07-01 07:56 | disposition home or self-care (01) ==
LOC: ANHOBOP 16:43
PROVIDERS: Visit Provider Advanced Practice Midwife
DX: O36.8190 Decreased fetal movements, unspecified trimester, not applicable or unspecified (principal)
CPT/HCPCS: 59025

== ENCOUNTER 2024-06-04 18:02 | Inpatient (IN) | payer OTHER, SELFPAY ==
--- NOTE | 2024-06-04 17:24 | LDADM ---
This patient, Lacey Arreola, was admitted to Labor/Delivery/Recovery [facility] on 06/04/24 at 17:24. Plans for labor, pain management and were discussed with patient. Patient/family oriented to hospital policies and general routines including ID bracelet, bed and alarms, visiting hours, pain management, procedures, bathroom and other care routines, personal items, smoking policy, room service/diet and guest tray routines, security routines, and visiting hours. Patient/Family are encouraged to report perceived risks to care and to ask questions if they do not understand what they are told or what they should do. See [facility] for further documentation.
[2024-06-04 18:13] VITALS: BMI 35.5
[2024-06-04 18:20] LABS: OBXCEM ROM Plus Negative (Negative)
[2024-06-04 18:27] LABS: Basophils Absolute Auto 0.1 K/mm3 (0.0-0.1); Basophils Percent Auto 0.4 % (0.2-1.2); Eosinophils Absolute Auto 0.1 K/mm3 (0-0.3); Eosinophils Percent Auto 0.4 % (0-4.4); Hematocrit 32.7 % (37.0-47.0); Immature Granulocyte Absolute 0.17 K/mm3 (0.00-0.031); Immature Granulocyte Percent A 1.2 % (0-0.5); Lymphocytes Absolute Auto 0.72 K/mm3 (0.9-3.2); Mean Corpuscular HGB Conc 33.6 g/dl (32-36); Mean Corpuscular Hemoglobin 30.1 pg (26-34); Mean Corpuscular Volume 89.3 fl (80-100); Mean Platelet Volume 12.3 fl (7.4-10.4); Monocytes Absolute Auto 1.2 K/mm3 (0.1-0.6); Monocytes Percent Auto 8.3 % (2.6-8.5); Neutrophils Absolute Auto 12.3 K/mm3 (1.3-6.7); Neutrophils Percent Auto 84.7 % (45.5-73.1); Platelet Count Result 136 k/mm3 (150-375); Red Blood Count 3.66 M/mm3 (4.2-5.4); Red Cell Distribution Width 13.2 % (11.5-14.5); White Blood Count 14.5 K/mm3 (4.5-10.0)
[2024-06-04] MEDS: LACTATED RINGERS 1,000 ML 999 ML IV CONT (18:29)
[2024-06-04 18:30] VITALS: BP 108/63; PULSE 101
[2024-06-04] MEDS: ONDANSETRON INJ 4 MG/2 ML VIAL IV PUSH (18:30)
[2024-06-04 19:03] VITALS: BP 122/73; PULSE 106
[2024-06-04 19:16] LABS: HIV 1/2 Ab P24 Ag Result Negative (Negative)
[2024-06-04 19:17] LABS: Rapid Plasma Reagin Non-Reactive (NonReactive)
[2024-06-04 19:24] VITALS: TEMP 37.7
[2024-06-04 19:25] VITALS: TEMP 37.7
[2024-06-04] MEDS: ACETAMINOPHEN 500 MG TABLET 1000 MG PO (19:25)
[2024-06-04] MEDS: FAMOTIDINE 20 MG/2 ML VIAL IV PUSH (19:25)
[2024-06-04 19:26] LABS: Alanine Aminotransferase 15 U/L (6-35); Albumin Level 3.4 g/dL (3.5-5.1); Alkaline Phosphatase 135 U/L (38-126); Anion Gap 11 mmol/L (4-12); Aspartate Amino Transferase 26 U/L (14-36); Bilirubin,Total 0.7 mg/dL (0.2-1.3); Blood Urea Nitrogen 7 mg/dL (7-17); Calcium 8.9 mg/dL (8.4-10.2); Carbon Dioxide 19 mmol/L (22-30); Chloride 101 mmol/L (98-107); Estimated CRCL calculation 121 ml/min; Estimated Glomerular Filt Rate > 60; Glucose 84 mg/dL (65-110); Potassium 3.9 mmol/L (3.4-5.0); Sodium 131 mmol/L (137-145)
[2024-06-04] MEDS: LACTATED RINGERS 1,000 ML 150 ML IV CONT (19:37)
[2024-06-04 20:00] VITALS: BP 121/69; PULSE 109
[2024-06-04 20:06] LABS: Influenza A QL RT-PCR Positive (Negative); Influenza B QL RT-PCR Negative (Negative); SARS-CoV-2 RNA PCR Negative (Negative)
[2024-06-04 20:11] LABS: Add Urine Microscopic? YES; Appearance Urine Clear (Clear); Bacteria Urine None Seen /hpf; Bilirubin Urine Negative (Negative); Blood Urine Negative (Negative); Color Urine Yellow (Yellow); Glucose Urine UA Negative (Negative); Ketones Urine Negative (Negative); Leukocyte Esterase Ur 1+ LEU/UL (Negative); Need Manual Microscopic Reviewed; Nitrate Urine Negative (Negative); Non Pathogenic Casts 0-2; Protein Urine Negative (Negative); RBC Urine 0-2 /hpf (0-2); Specific Grav Ur 1.008 (1.001-1.035); Squamous Epithelial Cell Urine None Seen /hpf (Few); WBC Urine 0-5 /hpf (0-3)
--- OUTSIDE RECORDS SUMMARY | 2024-06-05 08:32 | XMS_ITS | Data Portability ---
Author Organization [facility] [place] Address [address] [place] [address] Assessment No assessment recorded. Plan of Treatment Reminders Order Date Submit Date Provider Last Modified By Organization Details Last Modified Time Details Appointments U/S OB BPP 2024 02:30P M ULTRASOUND Not available Not available Not available NST 2024 03:00P M NST SCHEDULE Not available Not available Not available OB ROUTINE 2024 03:30P M Dahlia Shirley, CNM Not available Not available Not available U/S OB BPP 2024 02:30P M ULTRASOUND Not available Not available Not available NST 2024 03:00P M NST SCHEDULE Not available Not available Not available OB ROUTINE 2024 03:30P M Dahliavickey Davidgle, CNM Not available Not available Not available U/S OB BPP 2024 02:30P M ULTRASOUND Not available Not available Not available NST 2024 03:00P M NST SCHEDULE Not available Not available Not available OB ROUTINE 2024 03:30P M Dahlia Laynee, CNM Not available Not available Not available Lab None recorde d. Referral None recorde d. Procedures None recorde d. Surgeries None recorde d. Imaging non-str ess test 2024 025 [email or web address] [place], [address], [place], [address], 05/25/2024 09:36:34 US, obstetr ic, biophys ical profile + non-str ess test 2024 025 [email or web address] [place], [address], [place], [address], 05/24/2024 12:52:06 US, obstetr ic, biophys ical profile + non-str ess test 2024 025 [email or web address] [place], [address], [place], [address], 06/01/2024 20:48:58 non-str ess test 2024 025 [email or web address] [address], [address], [place], [address], 06/02/2024 07:10:04 Medication Orders None recorde d. Patient TargetsNo targets recorded. Patient InstructionsNo instructions recorded. Reason for Referral None Reported. Results Created Date Observation Date Name Description Value Unit Range Abnormal Flag Note LastModifiedBy Organization Detail LastModifiedTime 05/24/1905/24/2024 CULTU RE: GROUP B STREP SCREE N, REFLE X SUSCE PTIBI LITY result report SEE RESULT S BELOW Test: Cultu re: Group B Strep , Refle x Susce ptibi lity ([facility] ) Speci men Sourc e: Vagin a/Rec elyse Speci men Type: Vagin al/Re ctal Speci men Date: 2024 0958 Resul t Date: 2024 1724 Resul t Statu s: Final resul t Abnor mal: No Resul ting Lab: [facility] [address] [facility] [address] Tel: CULTU RE ----- ----- ----- --- No Group B strep isola wilver at 2 days (ronnie ctive broth enhan cemen t) Not Available [facility] (Lab) [address] [facility], [place], [address], 05/27/2024 18:27:40 05/17/19 25 05/17/2024 US, obste tric, follo w-up No observ ation record ed. [email or web address] [place] [address], [place], [address], 05/17/2024 13:09:39 05/17/19 25 05/17/2024 US, obste tric, bioph ysica l profi le + non-s tress test No observ ation record ed. [email or web address] [place] [address], [place], [address], 05/17/2024 13:09:51 05/17/1905/17/2024 US, obste tric, follo w-up No observ ation record ed. [email or web address] [address], [place], [address], 05/19/2024 07:33:13 05/22/19 25 05/17/2024 non-s tress test No observ ation record ed. [email or web address] [place] [address], [place], [address], 05/22/2024 20:37:03 05/24/19 25 05/24/2024 US, obste tric, bioph ysica l profi le + non-s tress test No observ ation record ed. [email or web address] [place] [address], [place], [address], 05/24/2024 13:51:08 05/24/19 25 05/24/2024 US, obste tric, bioph ysica l profi le + non-s tress test No observ ation record ed. [email or web address] [address], [place], [address], 05/24/2024 12:39:56 05/24/19 25 05/24/2024 non-s tress test No observ ation record ed. [email or web address] [place] [address], [place], [address], 05/24/2024 21:13:43 05/31/19 25 05/31/2024 US, obste tric, bioph ysica l profi le + non-s tress test No observ ation record ed. [email or web address] [place] [address], [place], [address], 05/31/2024 17:11:34 05/31/19 25 05/31/2024 US, obste tric, bioph ysica l profi le + non-s tress test No observ ation record ed. [email or web address] [address], [place], [address], 06/01/2024 15:26:31 05/31/19 25 05/31/2024 non-s tress test No observ ation record ed. [email or web address] [place] [address], [place], [address], 05/31/2024 20:47:36 Result Notes None recorded. Problems Name Problem SNOMED Code Status Onset Date Resolution Date Notes Provider Name and Address Organization Details Recorded Time Pregnanc y 92014123 Completed 202104/23/2022 Margaret lai, [facility] 4 12:59:09 Hyperthy roidism in pregnanc y 0086883975 9100 Completed 0.16, T4 WNL - 30 wk TSH WNL Eva lai, [facility] 2 16:46:37 Maternal obesity complica ting pregnanc y, childbir th and the puerperi um, antepart um 1144044017 07 Completed prepreg BMI 35- ante testing 37w Eva lai, [facility] 2 16:46:37 Pregnanc y 72450064 Active 2023 Margaret lai, [facility] 4 12:59:09 Advanced maternal age 689511591 Active Dahlia Shirley CNM [address], [place], [address], [facility] 4 14:23:17 Past pregnanc y history of prematur e delivery 493108574 Active 35 weeks - Antenata l testing at 34 per SP Geno tao null, [facility] 4 12:19:38 History of hyperthy roidism 824355281 Active last pregnanc y will check labs Dahlia Shirley CNM [address], [place], [address], [facility] 4 14:26:00 Obesity 936103919 Active 2023 35+; ante weekly at 37wks - Start at 34wks due to hx of PTD Geno tao null, [facility] 4 12:18:48 Problem Notes None recorded. Procedures Surgical History Date Name Laterality Status Provider Name and Address Organization Details Recorded Time 12/01/19 24 Date of Last Pap Smear completed Margaret Ramos [facility] 12/01/2023 17:37:47 05/20/19 24 Nexplanon Removal completed EDITA Lay [address], [place], [address], [facility] 05/20/2023 13:38:23 04/01/20 22 Control Implant Insertion completed Margaret Ramos [facility] 04/01/2022 19:34:30 05/03/19 16 procedure on nose completed Margaret Ramos [facility] 10/31/2021 10:23:58 05/03/18 95 tympanostomy completed Margaret Ramos [facility] 10/31/2021 10:23:38 Imaging Results Imaging Date Name Status LastModified by Organiz ation Details LastModified Time 05/17/2024 US, obstetric, follow-up completed [email or web address] [place] [address], [place], [address], 05/17/2024 13:09:39 05/17/2024 US, obstetric, biophysical profile + non-stress test completed [email or web address] [place] [address], [place], [address], 05/17/2024 13:09:51 05/17/2024 US, obstetric, follow-up completed [address], [place], [address], 05/19/2024 07:33:13 05/17/2024 non-stress test completed [email or web address] [place] [address], [place], [address], 05/22/2024 20:37:03 05/24/2024 US, obstetric, biophysical profile + non-stress test [email or web address] [place] [address], [place], [address], 05/24/2024 13:51:08 05/24/2024 US, obstetric, biophysical profile + non-stress test completed [email or web address] [address], [place], [address], 05/24/2024 12:39:56 05/24/2024 non-stress test completed [place] [address], [place], [address], 05/24/2024 21:13:43 05/31/2024 US, obstetric, biophysical profile + non-stress test completed [email or web address] [place] [address], [place], [address], 05/31/2024 17:11:34 05/31/2024 US, obstetric, biophysical profile + non-stress test completed [email or web address] [address], [place], [address], 06/01/2024 15:26:31 05/31/2024 non-stress test completed [email or web address] [place] [address], [place], [address], 05/31/2024 20:47:36 Procedure Notes None recorded. Medical Equipment None Reported. Allergies No known drug allergies Medications Name Sig Start Date Stop Date Status Note LastModified by Organization Details LastModified Time amoxicillin 500 mg capsule TAKE 1 CAPSULE BY MOUTH EVERY 8 HOURS FOR 7 DAYS 07/21 completed Not Available Not Available Not Available fluconazole 150 mg tablet TAKE 1 TABLET BY MOUTH NOW AND AGAIN IN 48 HOURS 10/02 completed Not Available Not Available Not Available amoxicillin 500 mg tablet 05/10 completed Not Available Not Available Not Available ofloxacin 0.3 % ear drops INSTILL 10 DROPS TO LEFT EAR EVERY 12 HOURS FOR 14 DAYS 07/21 completed Not Available Not Available Not Available dexamethaso ne 2 mg tablet TAKE 5 TABLETS BY MOUTH DAILY IN THE MORNING FOR 1 DAY 11/30 completed Not Available Not Available Not Available prednisone 50 mg tablet TAKE 1 TABLET BY MOUTH DAILY 07/21 completed Not Available Not Available Not Available meclizine 25 mg chewable tablet CHEW AND SWALLOW 1 TABLET BY MOUTH THREE TIMES DAILY NEEDED FOR DIZZINESS 11/30 completed Not Available Not Available Not Available Vitamin 07/21 completed Not Available Not Available Not Available Nexplanon 68 mg subdermal implant Inject 1 implant by subcutane ous route. 05/20 completed Not Available Not Available Not Available + DHA active Not Available Not Available Not Available One-A-Day Women's Complete(vK ) active Not Available Not Available Not Available BinaxNOW COVID-19 Ag Self Test kit TEST DIRECTED TODAY 07/21 completed Not Available Not Available Not Available Vitals Date Recorded Body height Body mass index (BMI) Body weight Body height Body mass index (BMI) Body weight Systolic blood pressure Diastolic blood pressure Systolic blood pressure Diastolic blood pressure Provider Name and Address Organization Details Last Updated DateTime 5 160.02 cm 35.8 kg/m2 82967.6 6 g 160.02 cm 35.8 kg/m2 12985.6 6 g 118 mm[Hg] 79 mm[Hg] 118 mm[Hg] 79 mm[Hg] Margaret Ramos [facility] 5 21:11:59 Date Recorded Body height Body mass index (BMI) Body weight Systolic blood pressure Diastolic blood pressure Provider Name and Address Organization Details Last Updated DateTime 05/31/2024 160.02 cm 36.3 kg/m2 19868.44 g 117 mm[Hg] 79 mm[Hg] Margaret Ramos [facility] 5 20:46:16 Social History Question Answer Notes LastModified by Organizat ion Details LastModified Time Tobacco Smoking Status Never Smoker Brandee Jiménez [facility], [facility] 05/20/2023 09:59:12 Do You Have An Advance Directive? No [email or web address] Information not available 09/04/2021 What Is Your Level Of Alcohol Consumption? None Information not available 11/20/2021 If You Are , What Was Your Level Of Alcohol Consumption Prior To ? Occasional [email or web address] Information not available 05/20/2023 Are You Blind Or Do You Have Difficulty Seeing? No Information not available 09/04/2021 What Is Your Level Of Caffeine Consumption? Occasional [email or web address] Information not available 09/04/2021 How Much Tobacco Do You Chew? None [email or web address] Information not available 09/04/2021 In The 14 Days Before Symptom Onset, Have You Had Close Contact With A Laboratory-confir med COVID-19 While That Case Was Ill? No [email or web address] Information not available 09/04/2021 In The 14 Days Before Symptom Onset, Have You Had Close Contact With A Person Who Is Under Investigation For COVID-19 While That Person Was Ill? No [email or web address] Information not available 09/04/2021 Have You Been To An Area Known To Be High Risk For COVID-19? No [email or web address] Information not available 09/04/2021 Are You Deaf Or Do You Have Serious Difficulty Hearing? No [email or web address] Information not available 09/04/2021 What Type Of Diet Are You Following? REGULAR [email or web address] Information not available 09/04/2021 What Is The Highest Grade Or Level Of School You Have Completed Or The Highest Degree You Have Received? 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 No [email or web address] Information not available 09/04/2021 Have You Ever Been Counseled For Unhealthy Alcohol Use? No [email or web address] Information not available 05/20/2023 Do You Use Protection During Sex? No [email or web address] Information not available 09/04/2021 Do You Use Your Seat Belt Or Car Seat Routinely? Yes [email or web address] Information not available 09/04/2021 Do You Have Smoke And Carbon Monoxide Detectors In Your Home? Yes [email or web address] Information not available 09/04/2021 How Much Tobacco Do You Smoke? No Information not available 09/04/2021 Do You Feel Stressed (tense, Restless, Nervous, Or Anxious, Or Unable To Sleep At Night)? [id number] Information not available 11/20/2021 Do You Use Any Illicit Or Recreational Drugs? No Information not available 09/04/2021 Do You Use Sunscreen Routinely? Yes [email or web address] Information not available 09/04/2021 Has Tobacco Cessation Counseling Been Provided? No [email or web address] Information not available 05/20/2023 Have You Used IV Drugs? No [email or web address] Information not available 09/04/2021 Do You Or Have You Ever Used Any Other Forms Of Tobacco Or Nicotine? No Information not available 05/20/2023 Sex: Female Functional Status Question Answer Note LastModified by Organizat ion Details LastModified Time Do you have difficulty walking or climbing stairs? No [email or web address] Information not available 05/20/2023 Are you able to walk? YESWOREST [email or web address] Information not available 09/04/2021 Are you able to care for yourself? Yes Information not available 05/20/2023 Do you have difficulty dressing or bathing? No [email or web address] Information not available 05/20/2023 What is your exercise level? Occasional Information not available 11/20/2021 Mental Status None recorded. Family History Relationship Description Onset Age of this Age Resolved Age Notes LastModified by Organization Details LastModified Time Unspecified Relation Family history unknown [email or web address] Not available 2024 15:15:57 Mother Anxiety disorder [email or web address] Not available 09/04 14:41:49 Medical History Condition Response Allergies (Food, seasonal, environmental ) N Other N Breast Cancer N Drug/Latex Allergies/Reactions N Blood Transfusion N Dermatologic Disorders N Lung Disease N Defects or Inherited Disease N Breast Problem N Gestational Diabetes N Hematologic disorders N Anesthesia Complications N History of STI N Deep Vein Thrombosis N Polycystic ovary syndrome N Anxiety Disorder N Autoimmune disease N Arthritis N Infertility N Polyps N Acid Reflux (GERD) N History of abnormal pap N Cancer N Stroke N Varicosities N Neurologic/Epilepsy N Endometriosis N High Cholesterol N Headaches N Fibromyalgia N Kidney Disease N Heart Problems N Kidney or Bladder Problems N Thyroid Problems N GI Problems N Eating Disorder N Anemia N Art (IVF or FET) N Psychiatric Illness N Ovarian Cancer N Diabetes N Pulmonary (TB, Asthma) N Hepatitis/Liver Disease N No Past Medical History N Eczema N Urinary Tract Infection N Abuse/Domestic Violence N Asthma N Trauma/Violence N Depression/ depression N Heart Disease N Pre-Eclampsia N Hypertension N Osteoporosis N Thrombophilias N Gynecological History Statement/Question Response Date of Last Mammogram Date of LMP On BCP's at Conception? N N Was last menstrual period normal N STIs/STDs N HPV Vaccine N Duration of Flow (days) 7 Current Control Method Frequency of Cycle (Q days) 7 Sexually Active? Y Date of DEXA bone scan Age of first menstrual cycle 14 Date of Last Pap Smear 12/01/2023 Sexual Problems? N LMP Unknown N Obstetrics History GPAL:G 2 P 0 1 0 1 Type Value Premature 1 Living 1 Total 2 Past Encounters Encounter ID Performer Location Encounter Start Date Encounter Closed Date Diagnosis/Indication Diagnosis SNOMED-CT Code Diagnosis ICD10 Code Diagnosis Note [id number] Clara Rojas [place] [address],[place] [address] 09/04/2021 13:52:10 09/04/2021 14:17:16 [id number] Nereyda Alba [place] [address],[place] [address] 09/04/2021 13:54:12 09/05/2021 16:03:09 test positive 496774124 Z32.01 Risk factors addressed: Tobacco Cessation, Safe Sexual Practices, environmen malathi, work hazards, travel restrictio ns, seat belt use.Eat a health well balanced diet, avoid alcohol, tobacco, and street drugs.Enga ge in daily low impact exercise, avoid temperatur e extremes, and cat, rodent, and bird feces.Avoi d travel to areas where zika virus is a concern.Of fered cf/sma/nip t. Desires all 3. Handouts given and discussed with patient.Ch ildbirth classes recommende d.New OB sheet given.If previous , counseling .Pt verbalizes that she understand s the importance of above instructio ns.All questions were answered.P atient reminded to have annual well woman examinatio n and address preventati ve healthcare . Gynecologi c examination 93723232 Z01.419 [id number] [facility] [address] [address] 10/02/2021 11:49:39 10/02/2021 12:18:15 screening 961225603 Z36.82 [id number] Clark Reinoso MD [place] [address],[place] [address] 10/02/2021 11:50:15 10/02/2021 13:38:17 Routine care 502022697 Z34.01 [id number] Dahlia Shirley CNM [place] [address] [address] 10/31/2021 10:14:20 10/31/2021 10:50:11 Routine care 179967524 Z34.92 [id number] [facility] [address],[place] [address] 11/20/2021 16:33:43 11/20/2021 17:49:49 screening for malformation 541079003 Z36.3 [id number] Clark Reinoso MD [place] [address],[place] [address] 11/20/2021 16:34:37 11/20/2021 18:30:19 Routine care 242665969 Z34.01 [id number] Clark Reinoso MD [place] [address],[place] [address] 12/18/2021 16:52:36 12/18/2021 18:05:10 Routine care 203438019 Z34.01 [id number] Paola Carrasquillo MD [place] [address],[place] [address] 01/13/2022 14:31:46 01/14/2022 14:49:48 Maternal obesity complicating , childbirth and the puerperium, antepartum 3706973187 07 O99.213 Hyperthyro idism in 9131354864 9100 E05.90 Routine an tenatal care 539412644 Z34.03 [id number] Dahlia Shirley CNM [place] [address],[place] [address] 01/30/2022 12:38:41 01/30/2022 12:59:19 Routine care 556552922 Z34.92 Hyperthyro idism in 1166844398 9100 E05.90 [id number] Dahlia Shirley CNM [place] [address],[place] [address] 02/13/2022 16:36:58 02/13/2022 17:07:17 Routine care 467545545 Z34.92 [id number] Clara Rojas [place] [address],[place] [address] 02/23/2022 17:41:52 02/24/2022 14:50:53 Uterine size for dates discrepancy 941652146 O26.849 Z3A.34 [id number] Dahlia Shirley CNM [place] [address],[place] [address] 02/25/2022 15:34:20 02/25/2022 16:24:47 Routine care 506188943 Z34.92 [id number] Margaret Ramos [place] [address],[place] [address] 04/01/2022 14:33:49 04/01/2022 16:26:21 care 865168579 Z39.2 Insertion of subcutaneous contraceptive 960480104 Z30.9 Insertion of intrauterine contraceptive device 89173375 Z30.430 Screening procedure 2012 5006 Z13.9 [id number] Dahlia Shirley [facility] [address],[place] [address] 11/04/2022 11:01:52 11/04/2022 13:25:47 Gynecologic examination 54621447 Z01.419 [id number] [facility] [address],[place] [address] 05/12/2022 11:42:20 05/12/2022 15:44:50 Abnormal uterine bleeding 3199611143 9100 N93.9 10 weeks post with continued bleeding. Discussed possible causes. U/S pasquale and will determine plan from there. [id number] EDITA Lay [place] [address],[place] [address] 05/20/2023 09:59:06 05/20/2023 13:56:46 Removal of subcutaneous contraceptive 147783121 Z30.46 nexplanon removed (see procedure note)preca utions reviewed, encouraged daily PNV [id number] Clara Rojas [place] [address],[place] [address] 05/13/2022 11:10:02 05/13/2022 14:53:44 Abnormal uterine bleeding 9037120155 9100 N93.9 [id number] Nereyda Alba [place] [address],[place] [address] 05/18/2022 14:44:25 05/19/2022 17:03:36 Abnormal uterine bleeding 7972709088 [address] Dahlia would like 2 months of ocp and return for follow up ultrasound . Precaution s given to patient. She verbalized understand ing. OCP samples given. [id number] [facility] [address],[place] [address] 07/20/2022 09:34:31 07/20/2022 10:57:04 Cyst of left ovary 8810212198 [id number] N83.202 [id number] Nereyda Alba [place] [address],[place] [address] 07/21/2022 09:24:02 07/23/2022 10:23:05 Abnormal uterine bleeding 5297321177 9100 N93.9 Bleeding has resolved. Ultrasound normal. Discussed precaution s and patient will let us know if any further bleeding or problems. [id number] [facility] [address],[place] [address] 11/02/2023 11:13:32 11/02/2023 12:39:23 screening 033042794 Z36.87 Z3A.01 Bessie Cleaning [place] [address],[place] [address] 12/01/2023 16:55:54 12/01/2023 17:24:00 [id number] Dahlia Shirley [facility] [address],[place] [address] 12/01/2023 16:56:14 12/02/2023 09:45:25 Amenorrhea 33933831 N91.2 screening 2437 86783 Z36.89 Genetic in vestigation procedure 76602312 Z31.430 Gynecologi c examination 08704767 Z11.51 Z11.3 [id number] [facility] [address],[place] [address] 12/23/2023 15:32:05 12/23/2023 16:30:37 screening 080601275 Z36.82 Z3A.13 [id number] [facility] [address],[place] [address] 12/31/2023 12:32:29 12/31/2023 14:52:49 Routine care 000542871 Z34.92 continue panel Gestation period, 14 weeks 06542819 Z3A.14 [id number] [facility] [address],[place] [address] 02/04/2024 14:52:41 02/04/2024 16:15:33 screening for malformation 393616081 Z36.3 Z3A.19 [id number] [facility] [address],[place] [address] 02/04/2024 14:53:46 02/07/2024 09:14:41 Gestation period, 20 weeks 91790131 Z3A.20 continue vitamin [id number] Dahlia Shirley [facility] [address],[place] [address] 04/05/2024 10:48:21 04/05/2024 12:07:58 Gestation period, 28 weeks 86590557 Z3A.28 Past pregn feroz history of premature labor 971180240 Z87.51 [id number] [place] [address] [address] 04/06/2024 15:10:40 04/06/2024 15:39:47 Reduced movement 641117043 O36.8199 [id number] [facility] [address] [place] [address] 04/07/2024 14:41:28 04/10/2024 11:12:47 Reduced movement 397267894 O36.8199 [id number] Bessie Cleaning [place] [address],[place] [address] 04/10/2024 12:30:32 04/10/2024 13:12:37 care: poor obstetric history 770596438 O09.293 O09.523 Z3A.29 [id number] YAKOV STEIN MD [place] [address],[place] [address] 05/10/2024 09:30:49 05/17/2024 05:45:23 Advanced maternal age 712971099 O09.523 Maternal o besity complicating , childbirth and the puerperium, antepartum 6082744753 07 O99.213 - testing at 34 weeks Past pregn feroz history of premature delivery 754530129 Z87.51 - discussed labor precaution s Gestation period, 34 weeks 63254488 Z3A.34 - continue PNV [id number] [facility] [address],[place] [address] 05/17/2024 09:35:11 05/17/2024 10:51:19 Multigravida of advanced maternal age 834556176 O09.529 O99.210 Z87.59 Z3A.34 [id number] Margaret Ramos [place] [address],[place] [address] 05/17/2024 09:35:59 05/23/2024 03:51:30 Maternal obesity complicating , childbirth and the puerperium, antepartum 7869423657 07 O99.210 [id number] Dahlia Shirley CNM [place] [address],[place] [address] 05/17/2024 09:36:24 05/17/2024 12:24:17 Gestation period, 34 weeks 47681189 Z3A.34 continue panel [id number] [facility] [address],[place] [address] 05/24/2024 09:34:35 05/24/2024 09:58:36 Multigravida of advanced maternal age [id number] O09.529 O99.210 Z87.59 Z3A.35 [id number] Margaret Ramos [place] [address],[place] [address] 05/24/2024 09:35:04 05/25/2024 09:36:34 Maternal obesity complicating , childbirth and the puerperium, antepartum [id number] 07 O99.210 [id number] [facility] [address],[place] [address] 05/24/2024 09:35:34 05/24/2024 11:17:07 screening [id number] Z36.85 Gestation period, 35 weeks [id number] Z3A.35 [id number] Margaret Ramos [place] [address],[place] [address] 05/31/2024 15:12:36 06/01/2024 10:28:08 Maternal obesity complicating , childbirth and the puerperium, antepartum [id number] 07 O99.210 [id number] Marisa Hernandez [place] [address],[place] [address] 05/31/2024 15:14:33 05/31/2024 16:12:17 Maternal obesity complicating , childbirth and the puerperium, antepartum [id number] 07 O99.210 Z87.51 Z3A.36 [id number] Dahlia Shirley [facility] [address],[place] [address] 05/31/2024 15:15:54 06/01/2024 16:56:40 Gestation period, 36 weeks [id number] Z3A.36 continue vitamin Health Concerns Section Related Observation LastModified by Organization Detai ls LastModified Time None Recorded Concern Status LastModified by Organization Details LastModified Time None Recorded Advance Directives Directive N: Payers Encounter Date Sequence Insurance Name Policy Number Policy Kang Covered Member ID Kang Member ID Guarantor Name 05/24/2024 2 [id number] [id number] 05/24/2024 1 [facility] [id number] 0003 Lacey Thibodeaux [id number] [facility] 05/24/2024 2 [facility]) [id number] 0003 Lacey Thibodeaux [id number] [facility] 05/24/2024 1 [facility]) [id number] 0003 Lacey Thibodeaux [id number] Lacey Tryon 05/31/2024 1 [facility]) [id number] 0003 Lacey Sosaanan [id number] [facility] 05/31/2024 1 [facility]) [id number] 0003 Lacey Sosaanan [id number] [facility] 05/31/2024 1 [facility]) [id number] 0003 Lacey Thibodeaux [id number] [facility] OBGyn Episode Ob Episode Information Episode Created Date Number of Fetuses Patient Bloodtype Patient rh Status Prepregnancy Weight lbs Domestic Partner Domestic Partner Phone Father Name Inseam Trimmer Status 10/03/19 22 1 O Positive 202 CLOSED Fetus Data First Name Last Name Admitted to NICU Weight (g) Sex Living Outcome Pediatric Complications Fetus ID Race Codes Race Delivery Type 2466.40 63 F true Prematur e cpap x2 minutes [id number] Vaginal Delivery Problems Problem Notes PNL WNL/NL NIPT Problem Name Start Date End Date Resolution Snomed Code Not e Hyperthyroidism in [id number] 0.16, T4 WNL - 30 wk TSH WNL Maternal obesity complicating , childbirth and the puerperium, antepartum [id number] prepr eg BMI 35- ante testing 37w Alex Calculation Initial Alex Date Initial Exam Date Initial Exam Provider Initial Ultrasound Date Last Menstrual Period Date Ultra Sound Weeks Gestation 04/04/2022 10/02/2021 09/04/2021 9 Eighteen To Twenty Week Alex Update Ultra Sound Date Fundal Height At Umbil Quickening Date Ultra Sound Latest Weeks Gestation Final Alex Confirmed By Final Alex Confirmed Date Final Alex Date Ultra Sound Latest Days Gestation 0 [email or web address] 10/02/2021 04/04/20 22 0 Pre- Flowsheet Flowsheet Date 10/02/2021 Hidalgo Score Blood Edema Fundus Height Fundus Units Glucose Ketones Leukocytes Nitrite Labor Signs Protein Cervic Dilation Cervic Effacement Cervic Station Type Weight in lbs Pre/Post Dialysis Refused Weight 199.387832205605 BP Diastolic BP Location Tested BP Systolic BP Type 85 R arm 127 sitting Fetus Heart Rate Present Fetus Movement Comments this patient is a 31-year-ol d 1 at 13 weeks and 5 days gestation who presents for initial care. She has no problems and no concerns. We talked about care in detail. She is unvaccinated. She was given recommendations on vaccines. She has remarkable medical, surgical, social history. Begin routine care. Flowsheet Date 10/31/2021 Hidalgo Score Blood Edema Fundus Height Fundus Units Glucose Ketones Leukocytes Nitrite Labor Signs Protein Cervic Dilation Cervic Effacement Cervic Station neg none none trace Type Weight in lbs Pre/Post Dialysis Refused Weight 197.514945170969 BP Diastolic BP Location Tested BP Systolic BP Type 70 106 Fetus Heart Rate Present A 145 Fetus Movement A Yes Comments rpt tsh and plan afp today, doing well, precautions reviewed plan anatomy in 3 weeks Flowsheet Date 11/20/2021 Hidalgo Score Blood Edema Fundus Height Fundus Units Glucose Ketones Leukocytes Nitrite Labor Signs Protein Cervic Dilation Cervic Effacement Cervic Station Type Weight in lbs Pre/Post Dialysis Refused BP Diastolic BP Location Tested BP Systolic BP Type Fetus Heart Rate Present Fetus Movement Comments Flowsheet Date 11/20/2021 Hidalgo Score Blood Edema Fundus Height Fundus Units Glucose Ketones Leukocytes Nitrite Labor Signs Protein Cervic Dilation Cervic Effacement Cervic Station 20 Type Weight in lbs Pre/Post Dialysis Refused Weight 198.407916680932 BP Diastolic BP Location Tested BP Systolic BP Type 80 R arm 117 sitting Fetus Heart Rate Present A 145 Fetus Movement Comments Normal baseline anatomy scan , normal growth, recheck thyroid in 4-8 weeks. Flowsheet Date 12/18/2021 Hidalgo Score Blood Edema Fundus Height Fundus Units Glucose Ketones Leukocytes Nitrite Labor Signs Protein Cervic Dilation Cervic Effacement Cervic Station 24 Type Weight in lbs Pre/Post Dialysis Refused Weight 200.447396910984 BP Diastolic BP Location Tested BP Systolic BP Type 77 R arm 128 sitting Fetus Heart Rate Present A 145 Fetus Movement Comments to repeat TSH and T4 today Flowsheet Date 01/13/2022 Hidalgo Score Blood Edema Fundus Height Fundus Units Glucose Ketones Leukocytes Nitrite Labor Signs Protein Cervic Dilation Cervic Effacement Cervic Station neg trace 30 none trace Type Weight in lbs Pre/Post Dialysis Refused Weight 202.275818016014 BP Diastolic BP Location Tested BP Systolic BP Type 78 122 Fetus Heart Rate Present A 155 Fetus Movement A Yes Comments Doing well, no concerns. Dis cussed testing at 37w for prepreg BMI 35. GCT today. Discussed and encouraged Tdap. TSH next visit. Flowsheet Date 01/30/2022 Hidalgo Score Blood Edema Fundus Height Fundus Units Glucose Ketones Leukocytes Nitrite Labor Signs Protein Cervic Dilation Cervic Effacement Cervic Station neg none 30 none trace Type Weight in lbs Pre/Post Dialysis Refused Weight 200.687854828077 BP Diastolic BP Location Tested BP Systolic BP Type 83 121 Fetus Heart Rate Present A 145 Fetus Movement A Yes Comments patient states that having s ome back pain and nausea. discussed precautions, warm bath, rest, hydration, check labs today, f/u 2 weeks Flowsheet Date 02/13/2022 Hidalgo Score Blood Edema Fundus Height Fundus Units Glucose Ketones Leukocytes Nitrite Labor Signs Protein Cervic Dilation Cervic Effacement Cervic Station neg none 29 none trace Type Weight in lbs Pre/Post Dialysis Refused Weight 201.418707643316 BP Diastolic BP Location Tested BP Systolic BP Type 86 131 Fetus Heart Rate Present A 145 Fetus Movement A Yes Comments patient states that having s ome nausea. s < d growth us next visit. reviewed precautions, reviewed hospital bags and what to bring f/u 2 weeks call for preadmit Flowsheet Date 02/23/2022 Hidalgo Score Blood Edema Fundus Height Fundus Units Glucose Ketones Leukocytes Nitrite Labor Signs Protein Cervic Dilation Cervic Effacement Cervic Station Type Weight in lbs Pre/Post Dialysis Refused BP Diastolic BP Location Tested BP Systolic BP Type Fetus Heart Rate Present Fetus Movement Comments Flowsheet Date 02/25/2022 Hidalgo Score Blood Edema Fundus Height Fundus Units Glucose Ketones Leukocytes Nitrite Labor Signs Protein Cervic Dilation Cervic Effacement Cervic Station neg none none trace Type Weight in lbs Pre/Post Dialysis Refused Weight 201.050465121870 BP Diastolic BP Location Tested BP Systolic BP Type 73 112 Fetus Heart Rate Present Fetus Movement A Yes Comments preadmission scheduled, zachary harvey, precautions reviewed start testing at 37 weeks f/u 2 weeks Flowsheet Date 04/01/2022 Hidalgo Score Blood Edema Fundus Height Fundus Units Glucose Ketones Leukocytes Nitrite Labor Signs Protein Cervic Dilation Cervic Effacement Cervic Station Type Weight in lbs Pre/Post Dialysis Refused Weight 185.531888292083 BP Diastolic BP Location Tested BP Systolic BP Type 80 133 Fetus Heart Rate Present Fetus Movement Comments Menstrual History Last Menstrual Date Menses Monthly On Bcp Conception Prior Menses Frequency Hcg Plus Date Menarche Onset Age Genetic Screening And Infection History Question Response Note Mental Retardation/Autism false Patient's Age Will Be 35 Years Or Older At Estim ated Date of Delivery false Thalassemia (Maori, Fijian, Mediterranean, Or Background): MCV < 80 false Neural Tube Defect (Meningomyelocele, Spina Bifi da, Or Anencephaly) false Congenital Heart Defect false Down Syndrome false Tristan-Sachs (eg, Zoroastrianism, Cajun, Citizen Of [place]) f alse Ines Disease false Sickle Cell Disease Or Trait () false Hemophilia Or Other Blood Disorders false Muscular Dystrophy false Cystic Fibrosis false Walden's Chorea false Intellectual Disability/Autism false If Yes, Was Person Tested For Fragile X? false Other Inherited Genetic Or Chromosomal Disorder false Maternal Metabolic Disorder (eg, Type 1 Diabetes , PKU) false Patient Or Baby's Father Had A Child With Defects Not Listed Above false Recurrent Loss, Or A Stillbirth false Medications (including Suppl ements, Vitamins, Herbs, OTC Drugs), Illicit/Recreational Drugs, Alcohol false If Yes, Agent(s) And Strength/Dosage false Any Other Genetic History false Live With Someone With TB Or Exposed To TB false Patient Or Partner Has History Of Genital Herpes false Rash Or Viral Illness Since Last Menstrual Perio d false History Of STD, Gonorrhea, Chlamydia, HPV, Syphi lis false Other Infection History false History of HIV false History of Hepatitis false Prior GBS-infected child false Hemoglobinopathy Or Carrier false Other Structural Defect false Recent Travel History Outside of Country false Delivery Information Delivery Date Delivery Type Labor Anesthesia Weeks Gestation Incision Type Labor Labor Length Hrs Delivered By Post Complications Tubal Sterilization Discharge Date Comments 2 None Regional- idural 35.1 true Dahlia Shirley CNM PROM, Maternal Obesity & Gbs unknown Discharge Information Feeding Method Contraceptive Method Maternal HG B and HCT Levels Ob Episode Information Episode Created Date Number of Fetuses Patient Bloodtype Patient rh Status Prepregnancy Weight lbs Domestic Partner Domestic Partner Phone Father Name Inseam Trimmer Status 12/31/19 24 1 O Positive 212 Benjamin isaacs OPEN Fetus Data First Name Last Name Admitted to NICU Weight (g) Sex Living Outcome Pediatric Complications Fetus ID Race Codes Race Delivery Type [id number] Problems Problem Notes placenta appears bilobed Problem Name Start Date End Date Resolution Snomed Code Not e Obesity 01/10/2024 [id number] 35+; ante weekly at 37wks - Start at 34wks due to hx of PTD Advanced maternal age 403768892 History of hyperthyroidism 882223927 last pregnan cy will check labs Past history of premature delivery 991952995 35 wee ks - testing at 34 per SP Alex Calculation Initial Alex Date Initial Exam Date Initial Exam Provider Initial Ultrasound Date Last Menstrual Period Date Ultra Sound Weeks Gestation 06/24/2024 12/01/2023 Dahlia Shirley 12/01/2023 10 Eighteen To Twenty Week Alex Update Ultra Sound Date Fundal Height At Umbil Quickening Date Ultra Sound Latest Weeks Gestation Final Alex Confirmed By Final Alex Confirmed Date Final Alex Date Ultra Sound Latest Days Gestation 0 0 Pre-sharath Flowsheet Flowsheet Date 12/31/2023 Hidalgo Score Blood Edema Fundus Height Fundus Units Glucose Ketones Leukocytes Nitrite Labor Signs Protein Cervic Dilation Cervic Effacement Cervic Station neg none none trace Type Weight in lbs Pre/Post Dialysis Refused Weight 206.682041761835 BP Diastolic BP Location Tested BP Systolic BP Type 59 108 Fetus Heart Rate Present Fetus Movement A Yes Comments Patient states that is havin g some pain. reviewed education and precautions, start routine care, hx of 35 week delivery, reviewed US wnl, f/u 4 weeks anatomy Flowsheet Date 02/04/2024 Hidalgo Score Blood Edema Fundus Height Fundus Units Glucose Ketones Leukocytes Nitrite Labor Signs Protein Cervic Dilation Cervic Effacement Cervic Station Type Weight in lbs Pre/Post Dialysis Refused BP Diastolic BP Location Tested BP Systolic BP Type Fetus Heart Rate Present Fetus Movement Comments Flowsheet Date 02/04/2024 Hidalgo Score Blood Edema Fundus Height Fundus Units Glucose Ketones Leukocytes Nitrite Labor Signs Protein Cervic Dilation Cervic Effacement Cervic Station Type Weight in lbs Pre/Post Dialysis Refused 203.90882316160 BP Diastolic BP Location Tested BP Systolic BP Type 81 126 Fetus Heart Rate Present Fetus Movement Comments anatomy complete, +FM, preca utions and education f/u 4 weeks Flowsheet Date 04/05/2024 Hidalgo Score Blood Edema Fundus Height Fundus Units Glucose Ketones Leukocytes Nitrite Labor Signs Protein Cervic Dilation Cervic Effacement Cervic Station Type Weight in lbs Pre/Post Dialysis Refused 207.403413748258 BP Diastolic BP Location Tested BP Systolic BP Type 78 133 Fetus Heart Rate Present A 135 Present Fetus Movement A Yes Comments Patient is having some nause a. reviewed precautions, education, ok for tdap vaccine, discussed testing, decreased movement plan NST today Flowsheet Date 04/05/2024 Hidalgo Score Blood Edema Fundus Height Fundus Units Glucose Ketones Leukocytes Nitrite Labor Signs Protein Cervic Dilation Cervic Effacement Cervic Station Type Weight in lbs Pre/Post Dialysis Refused Weight 207.464754804155 BP Diastolic BP Location Tested BP Systolic BP Type 78 133 Fetus Heart Rate Present Fetus Movement Comments Flowsheet Date 04/07/2024 Hidalgo Score Blood Edema Fundus Height Fundus Units Glucose Ketones Leukocytes Nitrite Labor Signs Protein Cervic Dilation Cervic Effacement Cervic Station Type Weight in lbs Pre/Post Dialysis Refused Weight 204.345187465959 BP Diastolic BP Location Tested BP Systolic BP Type 67 116 Fetus Heart Rate Present Fetus Movement Comments Flowsheet Date 04/10/2024 Hidalgo Score Blood Edema Fundus Height Fundus Units Glucose Ketones Leukocytes Nitrite Labor Signs Protein Cervic Dilation Cervic Effacement Cervic Station Type Weight in lbs Pre/Post Dialysis Refused BP Diastolic BP Location Tested BP Systolic BP Type Fetus Heart Rate Present Fetus Movement Comments Flowsheet Date 05/10/2024 Hidalgo Score Blood Edema Fundus Height Fundus Units Glucose Ketones Leukocytes Nitrite Labor Signs Protein Cervic Dilation Cervic Effacement Cervic Station neg trace Type Weight in lbs Pre/Post Dialysis Refused 202.745241675874 BP Diastolic BP Location Tested BP Systolic BP Type 75 L arm 110 sitting Fetus Heart Rate Present A 140 Fetus Movement A Yes Comments Doing well, good movem ent. No cramping or bleeding. Overall, no issues. Discussed testing starting at 34 weeks. RTC 1 week. Flowsheet Date 05/17/2024 Hidalgo Score Blood Edema Fundus Height Fundus Units Glucose Ketones Leukocytes Nitrite Labor Signs Protein Cervic Dilation Cervic Effacement Cervic Station Type Weight in lbs Pre/Post Dialysis Refused BP Diastolic BP Location Tested BP Systolic BP Type Fetus Heart Rate Present Fetus Movement Comments Flowsheet Date 05/17/2024 Hidalgo Score Blood Edema Fundus Height Fundus Units Glucose Ketones Leukocytes Nitrite Labor Signs Protein Cervic Dilation Cervic Effacement Cervic Station Type Weight in lbs Pre/Post Dialysis Refused Weight 202.363146229616 BP Diastolic BP Location Tested BP Systolic BP Type 80 117 Fetus Heart Rate Present Fetus Movement Comments Flowsheet Date 05/17/2024 Hidalgo Score Blood Edema Fundus Height Fundus Units Glucose Ketones Leukocytes Nitrite Labor Signs Protein Cervic Dilation Cervic Effacement Cervic Station trace Type Weight in lbs Pre/Post Dialysis Refused 202.466057968663 BP Diastolic BP Location Tested BP Systolic BP Type 80 117 Fetus Heart Rate Present Fetus Movement A Yes Comments Patient states that having s welling, pressure, pain and nausea. bpp 10/10, efw 27%, precautions and education +FM f/u 2 weeks plan gbs Flowsheet Date 05/24/2024 Hidalgo Score Blood Edema Fundus Height Fundus Units Glucose Ketones Leukocytes Nitrite Labor Signs Protein Cervic Dilation Cervic Effacement Cervic Station Type Weight in lbs Pre/Post Dialysis Refused BP Diastolic BP Location Tested BP Systolic BP Type Fetus Heart Rate Present Fetus Movement Comments Flowsheet Date 05/24/2024 Hidalgo Score Blood Edema Fundus Height Fundus Units Glucose Ketones Leukocytes Nitrite Labor Signs Protein Cervic Dilation Cervic Effacement Cervic Station Type Weight in lbs Pre/Post Dialysis Refused Weight 202.605553257604 BP Diastolic BP Location Tested BP Systolic BP Type 79 118 Fetus Heart Rate Present Fetus Movement Comments Flowsheet Date 05/24/2024 Hidalgo Score Blood Edema Fundus Height Fundus Units Glucose Ketones Leukocytes Nitrite Labor Signs Protein Cervic Dilation Cervic Effacement Cervic Station trace Type Weight in lbs Pre/Post Dialysis Refused Weight 202.733619453797 BP Diastolic BP Location Tested BP Systolic BP Type 79 118 Fetus Heart Rate Present Fetus Movement A Yes Comments Patient states that is havin g some swelling and nausea. bpp 8/10, doing well, no contractions, +FM, precautions and education, f/u one week Flowsheet Date 05/31/2024 Hidalgo Score Blood Edema Fundus Height Fundus Units Glucose Ketones Leukocytes Nitrite Labor Signs Protein Cervic Dilation Cervic Effacement Cervic Station Type Weight in lbs Pre/Post Dialysis Refused Weight 205.527142835903 BP Diastolic BP Location Tested BP Systolic BP Type 79 117 Fetus Heart Rate Present Fetus Movement Comments Flowsheet Date 05/31/2024 Hidalgo Score Blood Edema Fundus Height Fundus Units Glucose Ketones Leukocytes Nitrite Labor Signs Protein Cervic Dilation Cervic Effacement Cervic Station Type Weight in lbs Pre/Post Dialysis Refused BP Diastolic BP Location Tested BP Systolic BP Type Fetus Heart Rate Present Fetus Movement Comments Flowsheet Date 05/31/2024 Hidalgo Score Blood Edema Fundus Height Fundus Units Glucose Ketones Leukocytes Nitrite Labor Signs Protein Cervic Dilation Cervic Effacement Cervic Station 3cm Type Weight in lbs Pre/Post Dialysis Refused BP Diastolic BP Location Tested BP Systolic BP Type Fetus Heart Rate Present Fetus Movement Comments +FM Bpp 12/08 no cntx, to ld f or labor eval, precautions and education cervix 3-4/60/-2 Menstrual History Last Menstrual Date Menses Monthly On Bcp Conception Prior Menses Frequency Hcg Plus Date Menarche Onset Age Delivery Information Delivery Date Delivery Type Labor Anesthesia Weeks Gestation Incision Type Labor Labor Length Hrs Delivered By Post Complications Tubal Sterilization Discharge Date Comments Discharge Information Feeding Method Contraceptive Method Maternal HG B and HCT Levels
--- NOTE | 2024-06-05 16:50 | PM.OBTRLD ---
OB - Triage/Final Diagnosis Visit Information Date of evaluation: 06/04/24 Reason for evaluation: other (pelvic pain, flu) Comments/Additional reasons for admission: I have assessed the risk for this patient, Lacey Arreola, and determined that she would benefit from observation care. Evaluation Laboratory results: Laboratory Tests 06/04/24 06/04/24 06/04/24 18:09 18:18 19:26 WBC 14.5 H RBC 3.66 L Hgb 11.0 L Hct 32.7 L MCV 89.3 MCH 30.1 MCHC 33.6 RDW 13.2 Plt Count 136 L MPV 12.3 H Immature Gran % (Auto) 1.2 H Neut % (Auto) 84.7 H Lymph % (Auto) 5.0 L [place] % (Auto) 8.3 Eos % (Auto) 0.4 Baso % (Auto) 0.4 Lymph # (Auto) 0.72 L [place] # (Auto) 1.2 H Eos # (Auto) 0.1 Baso # (Auto) 0.1 Abs Immat Gran (auto) 0.17 H Absolute Neuts (auto) 12.3 H Absolute Nucleated RBC 0.000 Nucleated RBC % 0.0 Sodium 131 L Potassium 3.9 Chloride 101 Carbon Dioxide 19 L Anion Gap 11 BUN 7 Creatinine 0.59 L Estim Creat Clear Calc 121 Estimated GFR > 60 Glucose 84 Calcium 8.9 Total Bilirubin 0.7 AST 26 ALT 15 Alkaline Phosphatase 135 H Total Protein 7.0 Albumin 3.4 L Urine Color Urine Appearance Urine pH Ur Specific Stephen Urine Protein Urine Glucose (UA) Urine Ketones Ur Blood (Man) Urine Nitrate Urine Bilirubin Urine Urobilinogen Ur Leukocyte Esterase Add Ur Microanalysis Urine RBC Urine WBC Ur Squamous Epith Cells Urine Bacteria Urine Casts Membranes Rupture Rom plus negative RPR Non-reactive HIV 1&2 Ab/P24 Ag 4thGn Negative Influenza A (RT-PCR) Positive A Influenza B (RT-PCR) Negative SARS-CoV-2 RNA (RT-PCR) Negative Blood Type O Positive Antibody Screen Negative 06/04/24 19:45 WBC RBC Hgb Hct MCV MCH MCHC RDW Plt Count MPV Immature Gran % (Auto) Neut % (Auto) Lymph % (Auto) [place] % (Auto) Eos % (Auto) Baso % (Auto) Lymph # (Auto) [place] # (Auto) Eos # (Auto) Baso # (Auto) Abs Immat Gran (auto) Absolute Neuts (auto) Absolute Nucleated RBC Nucleated RBC % Sodium Potassium Chloride Carbon Dioxide Anion Gap BUN Creatinine Estim Creat Clear Calc Estimated GFR Glucose Calcium Total Bilirubin AST ALT Alkaline Phosphatase Total Protein Albumin Urine Color Yellow Urine Appearance Clear Urine pH 6.0 Ur Specific Stephen 1.008 Urine Protein Negative Urine Glucose (UA) Negative Urine Ketones Negative Ur Blood (Man) Negative Urine Nitrate Negative Urine Bilirubin Negative Urine Urobilinogen 1.0 Ur Leukocyte Esterase 1+ H Add Ur Microanalysis Reviewed Urine RBC 0-2 Urine WBC 0-5 Ur Squamous Epith Cells None seen Urine Bacteria None seen Urine Casts 0-2 Membranes Rupture RPR HIV 1&2 Ab/P24 Ag 4thGn Influenza A (RT-PCR) Influenza B (RT-PCR) SARS-CoV-2 RNA (RT-PCR) Blood Type Antibody Screen Vital signs: Vital Signs - 24 hr 06/04/24 18:30 06/04/24 18:41 06/04/24 19:03 Temperature Pulse Rate 101 H 106 H Blood Pressure 108/63 122/73 Oxygen Delivery Room Air 06/04/24 19:24 06/04/24 19:25 06/04/24 20:00 Temperature 37.7 C H 37.7 C H Pulse Rate 109 H Blood Pressure 121/69 Oxygen Delivery
== END 2024-06-04 20:51 | disposition home or self-care (01) | DRG 566 ==
PROVIDERS: Admitting Provider Obstetrics & Gynecology; Referring Provider Advanced Practice Midwife; Visit Provider Obstetrics & Gynecology
DX: O26.899 Other specified pregnancy related conditions, unspecified trimester (principal); R10.2 Pelvic and perineal pain; J11.1 Influenza due to unidentified influenza virus with other respiratory manifestations; Z3A.00 Weeks of gestation of pregnancy not specified
CPT/HCPCS: 36415; 80053; 81001; 84112; 85025; 86592; 86703; 86850; 86900; 86901; 87636; A9270; G0432; J2405; J7120

== ENCOUNTER 2024-06-07 15:26 | Inpatient (IN) | payer OTHER, SELFPAY ==
[2024-06-07] VITALS (117 sets, daily range): BP systolic 76–147; BP diastolic 51–107; PULSE 58–167; RESP 14–16; TEMP 36.2–37.5; O2SAT 94–100; BMI 35.4
--- OUTSIDE RECORDS SUMMARY | 2024-06-07 15:56 | XMS_ITS | Continuity of Care Document ---
Author Organization [facility] Address [address] [place] [address] Assessment Encounter Date Assessment Date Assessment LastModified by Organization Details LastModified Time 06/07/2024 06/07/2024 Patient is _37__weeks . Discussed plan. Not available 06/07/2024 16:25:56 Plan of Treatment Reminders Order Date Submit Date Provider Last Modified By Organization Details Last Modified Time Details Appointments U/S OB BPP 2024 02:30P M ULTRASOUND Not available Not available Not available OB ROUTINE 2024 03:30P M Dahlia Shirley CNM Not available Not available Not available U/S OB BPP 2024 02:30P M ULTRASOUND Not available Not available Not available NST 2024 03:00P M NST SCHEDULE Not available Not available Not available OB ROUTINE 2024 03:30P M Dahlia Shirley CNM Not available Not available Not available U/S OB BPP 2024 02:30P M ULTRASOUND Not available Not available Not available NST 2024 03:00P M NST SCHEDULE Not available Not available Not available OB ROUTINE 2024 03:30P M Dahlia Shirley CNM Not available Not available Not available Lab None recorde d. Referral None recorde d. Procedures None recorde d. Surgeries None recorde d. Imaging None recorde d. Medication Orders None recorde d. Patient TargetsNo targets recorded. Patient InstructionsNo instructions recorded. Reason for Referral None Reported. Results Created Date Observation Date Name Description Value Unit Range Abnormal Flag Note LastModifiedBy Organization Detail LastModifiedTime 02/04/20 24 02/04/2024 US, obste tric, 2nd or 3rd trime ster No observ ation record ed. martha [facility] [address], [place], [address], 02/04/2024 16:11:01 02/04/20 24 02/04/2024 US, obste tric, 2nd or 3rd trime ster No observ ation record ed. HAIDER [address], [place], [address], 02/08/2024 12:20:33 02/04/2002/04/2024 US, obste tric, 2nd or 3rd trime ster No observ ation record ed. [email or web address] [address], [place], [address], 02/04/2024 16:55:35 04/05/20 24 04/05/2024 non-s tress test No observ ation record ed. [address] [facility] [address], [place], [address], 04/10/2024 12:16:41 04/06/20 24 04/06/2024 non-s tress test No observ ation record ed. [email or web address] [facility] [address], [place], [address], 04/06/2024 15:17:35 04/06/20 24 04/05/2024 non-s tress test No observ ation record ed. [email or web address] [facility] [address], [place], [address], 04/06/2024 15:19:18 04/07/20 24 04/07/2024 non-s tress test No observ ation record ed. [email or web address] [facility] [address], [place], [address], 04/07/2024 19:51:09 04/07/20 24 04/07/2024 non-s tress test No observ ation record ed. [email or web address] [facility] [address], [place], [address], 04/07/2024 19:53:00 04/10/20 24 04/10/2024 US, obste tric, follo w-up No observ ation record ed. [email or web address] [facility] [address], [place], [address], 04/10/2024 13:48:06 04/10/20 24 04/10/2024 US, obste tric, follo w-up No observ ation record ed. [email or web address] [address], [place], [address], 04/14/2024 15:56:01 05/17/19 25 05/17/2024 US, obste tric, follo w-up No observ ation record ed. [email or web address] [facility] [address], [place], [address], 05/17/2024 13:09:39 05/17/19 25 05/17/2024 US, sally villanueva, bioph ysica l profi le + non-s tress test No observ ation record ed. [email or web address] [facility] [address], [place], [address], 05/17/2024 13:09:51 05/17/19 25 05/17/2024 US, obstsherri tric, follo w-up No observ ation record ed. [email or web address] [address], [place], [address], 05/19/2024 07:33:13 05/22/19 25 05/17/2024 non-s tress test No observ ation record ed. [email or web address] [facility] [address], [place], [address], 05/22/2024 20:37:03 05/24/19 25 05/24/2024 US, obste tric, bioph ysica l profi le + non-s tress test No observ ation record ed. [email or web address] [facility] [address], [place], [address], 05/24/2024 13:51:08 05/24/19 25 05/24/2024 US, obste tric, bioph ysica l profi le + non-s tress test No observ ation record ed. [email or web address] [address], [place], [address], 05/24/2024 12:39:56 05/24/19 25 05/24/2024 non-s tress test No observ ation record ed. [email or web address] [facility] [address], [place], [address], 05/24/2024 21:13:43 05/31/19 25 05/31/2024 US, obste tric, bioph ysica l profi le + non-s tress test No observ ation record ed. [email or web address] [facility] [address], [place], [address], 05/31/2024 17:11:34 05/31/19 25 05/31/2024 US, obste tric, bioph ysica l profi le + non-s tress test No observ ation record ed. [email or web address] [address], [place], [address], 06/01/2024 15:26:31 05/31/19 25 05/31/2024 non-s tress test No observ ation record ed. [email or web address] [facility] [address], [place], [address], 05/31/2024 20:47:36 06/07/19 25 US, obste tric, bioph ysica l profi le + non-s tress test No observ ation record ed. [email or web address] [facility] [address], [place], [address], 06/07/2024 16:22:40 06/07/19 25 06/07/2024 US, obste tric, bioph ysica l profi le + non-s tress test No observ ation record ed. [email or web address] [address], [place], [address], 06/07/2024 16:35:54 Result Notes None recorded. Problems Name Problem SNOMED Code Status Onset Date Resolution Date Notes Provider Name and Address Organization Details Recorded Time Pregnanc y 28053441 Completed 202104/23/2022 Margaret lai, [facility] 4 12:59:09 Hyperthy roidism in pregnanc y 6850361707 9100 Completed 0.16, T4 WNL - 30 wk TSH WNL Eva lai, [facility] 2 16:46:37 Maternal obesity complica ting pregnanc y, childbir th and the puerperi um, antepart um 0454415166 07 Completed prepreg BMI 35- ante testing 37w Eva lai, [facility] 2 16:46:37 Pregnanc y 45452069 Active 2023 Margaret lai, [facility] 4 12:59:09 Advanced maternal age 174062623 Active Dahlia Shirley CNM [address], [place], [address], [place] [facility] 4 14:23:17 Past pregnanc y history of prematur e delivery 351809385 Active 35 weeks - Antenata l testing at 34 per SP Geno Eller er null, [facility] 4 12:19:38 History of hyperthy roidism 854958359 Active last pregnanc y will check labs Dahlia Shirley CNM [address], [place], [address], [facility] 4 14:26:00 Obesity 068617927 Active 2023 35+; ante weekly at 37wks - Start at 34wks due to hx of PTD Geno Eller dinh null, [facility] 4 12:18:48 Problem Notes None recorded. Procedures Surgical History Date Name Laterality Status Provider Name and Address Organization Details Recorded Time 12/01/19 24 Date of Last Pap Smear completed Margaretcaitie Ramos [facility] 12/01/2023 17:37:47 05/20/19 24 Nexplanon Removal completed EDITA Lay [address], [place], [address], [facility] 05/20/2023 13:38:23 04/01/20 22 Control Implant Insertion completed Margaretcaitie Ramos [facility] 04/01/2022 19:34:30 05/03/19 16 procedure on nose completed Margaretcaitie Ramos [facility] 10/31/2021 10:23:58 05/03/18 95 [facility] 10/31/2021 10:23:38 Imaging Results None recorded. Procedure Notes None recorded. Medical Equipment None [...] completed Not Available Not Available Not Available benzonatate 100 mg capsule TAKE 1 CAPSULE BY MOUTH THREE TIMES DAILY DIRECTED active Not Available Not Available No t Available dexamethaso ne 2 mg tablet TAKE 5 TABLETS BY MOUTH DAILY IN THE MORNING FOR 1 DAY 11/30 completed Not Available Not Available Not Available oseltamivir 75 mg capsule TAKE 1 CAPSULE BY MOUTH TWICE DAILY FOR 5 DAYS DIRECTED active Not Available Not Available No t Available prednisone 50 mg tablet TAKE 1 TABLET BY MOUTH DAILY 07/21 completed Not Available Not Available Not Available ondansetron 4 mg disintegrat ing tablet DISSOLVE 1 TABLET ON THE TONGUE EVERY 8 HOURS active Not Available Not Available No t Available meclizine 25 mg chewable tablet CHEW [...] Available Not Available Vitals Date Recorded Body weight Body mass index (BMI) Body height Provider Name and Address Organization Details Last Updated DateTime 06/07/2024 95952.67557 g 35.8 kg/m2 160.02 cm Margaret Ramos [facility] 06/07/2024 16:26:09 Social History Question Answer Notes LastModified by Organizat ion Details LastModified Time Tobacco Smoking Status Never Smoker Brandee Jiménez joelle [facility] 05/20/2023 09:59:12 Do You Have An Advance Directive? No [email or web address] Information not available 09/04/2021 What Is Your Level Of Alcohol Consumption? None Information not available 11/20/2021 If You Are , What Was Your Level Of Alcohol Consumption Prior To ? Occasional [email or web address] Information not available 05/20/2023 Are You Blind Or Do You Have Difficulty Seeing? No [email or web address] Information not available 09/04/2021 What Is Your Level Of Caffeine Consumption? Occasional [email or web address] Information not available 09/04/2021 How Much Tobacco Do You Chew? None [email or web address] Information not available 09/04/2021 In The 14 Days Before Symptom Onset, Have You Had Close Contact With A Laboratory-confir med COVID-19 While That Case Was Ill? No [email or web address] Information not available 09/04/2021 In The 14 Days Before Symptom Onset, Have You Had Close Contact With A Person Who Is Under Investigation For COVID-19 While That Person Was Ill? No [email or web address] Information not available 09/04/2021 Have You Been To An Area Known To Be High Risk For COVID-19? No Information not available 09/04/2021 Are You Deaf Or Do You Have Serious Difficulty Hearing? No [email or web address] Information not available 09/04/2021 What Type Of Diet Are You Following? REGULAR [email or web address] Information not available 09/04/2021 What Is The Highest Grade Or Level Of School You Have Completed Or The Highest Degree You Have Received? 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 No [email or web address] Information not available 09/04/2021 Have You Ever Been Counseled For Unhealthy Alcohol Use? No [email or web address] Information not available 05/20/2023 Do You Use Protection During Sex? No [email or web address] Information not available 09/04/2021 Do You Use Your Seat Belt Or Car Seat Routinely? Yes Information not available 09/04/2021 Do You Have Smoke And Carbon Monoxide Detectors In Your Home? Yes [email or web address] Information not available 09/04/2021 How Much Tobacco Do You Smoke? No [email or web address] Information not available 09/04/2021 Do You Feel Stressed (tense, Restless, Nervous, Or Anxious, Or Unable To Sleep At Night)? [id number] Information not available 11/20/2021 Do You Use Any Illicit Or Recreational Drugs? No [email or web address] Information not available 09/04/2021 Do You Use Sunscreen Routinely? Yes [email or web address] Information not available 09/04/2021 Has Tobacco Cessation Counseling Been Provided? No Information not available 05/20/2023 Have You Used IV Drugs? No [email or web address] Information not available 09/04/2021 Do You Or Have You Ever Used Any Other Forms Of Tobacco Or Nicotine? No [email or web address] Information not available 05/20/2023 Sex: Female Functional Status Question Answer Note LastModified by Organizat ion Details LastModified Time Do you have difficulty walking or climbing stairs? No [email or web address] Information not available 05/20/2023 Are you able to walk? YESWOREST [email or web address] Information not available 09/04/2021 Are you able to care for yourself? Yes [email or web address] Information not available 05/20/2023 Do you have difficulty dressing or bathing? No [email or web address] Information not available 05/20/2023 What is your exercise level? Occasional Information not available 11/20/2021 Mental Status None recorded. Family History Relationship Description Onset Age of this Age Resolved Age Notes LastModified by Organization Details LastModified Time Unspecified Relation Family history unknown [email or web address] Not available 08/2024 15:24:17 Mother Anxiety disorder [email or web address] Not available 09/04 14:41:49 Medical History Condition Response Allergies (Food, seasonal, environmental ) N Other N Blood Transfusion N Breast Cancer N Drug/Latex Allergies/Reactions N Dermatologic Disorders N Lung Disease N Defects or Inherited Disease N Breast Problem N Gestational Diabetes N Hematologic disorders N Anesthesia Complications N History of STI N Deep Vein Thrombosis N Polycystic ovary syndrome N Anxiety Disorder N Autoimmune disease N Arthritis N Polyps N Infertility N Acid Reflux (GERD) N History of abnormal pap N Cancer N Varicosities N Stroke N Neurologic/Epilepsy N Endometriosis N High Cholesterol N Fibromyalgia N Headaches N Kidney Disease N Heart Problems N Thyroid Problems N Kidney or Bladder Problems N GI Problems N Eating Disorder [...] SNOMED-CT Code Diagnosis ICD10 Code Diagnosis Note [id number] YAKOV STEIN MD [facility] [address] [address] 05/10/2024 09:30:49 05/17/2024 05:45:23 Advanced maternal age 668546086 O09.523 Maternal o besity complicating , childbirth and the puerperium, antepartum 3684921194 07 O99.213 - testing at 34 weeks Past pregn feroz history of premature delivery 659186713 Z87.51 - discussed labor precaution s Gestation period, 34 weeks 27745677 Z3A.34 - continue PNV [id number] [facility] [address] [address] 05/17/2024 09:35:11 05/17/2024 10:51:19 Multigravida of advanced maternal age 377101089 O09.529 O99.210 Z87.59 Z3A.34 [id number] Margaret Ramos [facility] [address] [address] 05/17/2024 09:35:59 05/23/2024 03:51:30 Maternal obesity complicating , childbirth and the puerperium, antepartum 0920105077 07 O99.210 [id number] [facility] [address],[place] [address] 05/17/2024 09:36:24 05/17/2024 12:24:17 Gestation period, 34 weeks 00163355 Z3A.34 continue panel [id number] [facility] [address],[place] [address] 05/24/2024 09:34:35 05/24/2024 09:58:36 Multigravida of advanced maternal age 752222772 O09.529 O99.210 Z87.59 Z3A.35 [id number] Margaret Ramos [facility] [address],[place] [address] 05/24/2024 09:35:04 05/25/2024 09:36:34 Maternal obesity complicating , childbirth and the puerperium, antepartum 2748914253 07 O99.210 [id number] Dahlia Shirley [facility] [address],[place] [address] 05/24/2024 09:35:34 05/24/2024 11:17:07 screening 132408056 Z36.85 Gestation period, 35 weeks 55698244 Z3A.35 [id number] [facility] [address],[place] [address] 05/31/2024 15:12:36 06/01/2024 10:28:08 Maternal obesity complicating , childbirth and the puerperium, antepartum 0035203103 07 O99.210 [id number] [facility] [address],[place] [address] 05/31/2024 15:14:33 05/31/2024 16:12:17 Maternal obesity complicating , childbirth and the puerperium, antepartum 6187156988 07 O99.210 Z87.51 Z3A.36 [id number] [facility] [address],[place] [address] 05/31/2024 15:15:54 06/01/2024 16:56:40 Gestation period, 36 weeks 66938857 Z3A.36 continue vitamin [id number] Bessie Cleaning [facility] [address] [address] 06/07/2024 15:23:04 06/07/2024 16:24:33 care: poor obstetric history 480228064 O09.293 O99.213 O99.283 [id number] Dahlia Shirley [facility] [address] [address] 06/07/2024 15:24:13 06/07/2024 16:30:49 Gestation period, 37 weeks 13096307 Z3A.37 cond ition affecting obstetrical care of mother 451502581 O36.90X0 Health Concerns Section Related Observation LastModified by Organization Detai ls LastModified Time None Recorded Concern Status LastModified by Organization Details LastModified Time None Recorded Payers Encounter Date Sequence Insurance Name Policy Number Policy Kang Covered Member ID Kang Member ID Guarantor Name 06/07/2024 1 [facility] [id number] Lacey Arreola [id number] Lacey Arreola OBGyn Episode Ob Episode Information Episode Created Date Number of Fetuses Patient Bloodtype Patient rh Status Prepregnancy Weight lbs Domestic Partner Domestic Partner Phone Father Name Architectural Manager Status 12/31/19 24 1 O Positive 212 Benjamin Maxwell n OPEN Fetus Data First Name Last Name Admitted to NICU Weight (g) Sex Living Outcome Pediatric Complications Fetus ID Race Codes Race Delivery Type [id number] Problems Problem Notes placenta appears bilobed Problem Name Start Date End Date Resolution Snomed Code Not e Obesity 01/10/2024 213449385 35+; ante weekly at 37wks - Start at 34wks due to hx of PTD Advanced maternal age 699495952 History of hyperthyroidism 432479411 last pregnan cy will check labs Past history of premature delivery 129159943 35 wee ks - testing at 34 [...] Weight in lbs Pre/Post Dialysis Refused Weight 206.176835664140 BP Diastolic BP Location Tested BP Systolic [...] Type Weight in lbs Pre/Post Dialysis Refused 203.68238744595 BP Diastolic BP Location Tested BP Systolic BP Type 81 126 Fetus Heart Rate Present Fetus Movement Comments anatomy complete, +FM, preca utions and education f/u 4 weeks Flowsheet Date 04/05/2024 Hidalgo Score Blood Edema Fundus Height Fundus Units Glucose Ketones Leukocytes Nitrite Labor Signs Protein Cervic Dilation Cervic Effacement Cervic Station Type Weight in lbs Pre/Post Dialysis Refused 207.951382513585 BP Diastolic BP Location Tested BP Systolic [...] Weight in lbs Pre/Post Dialysis Refused Weight 207.694694929981 BP Diastolic BP Location Tested BP Systolic BP Type 78 133 Fetus Heart Rate Present Fetus Movement Comments Flowsheet Date 04/07/2024 Hidalgo Score Blood Edema Fundus Height Fundus Units Glucose Ketones Leukocytes Nitrite Labor Signs Protein Cervic Dilation Cervic Effacement Cervic Station Type Weight in lbs Pre/Post Dialysis Refused Weight 204.388599620266 BP Diastolic BP Location Tested BP Systolic [...] Type Weight in lbs Pre/Post Dialysis Refused 202.498451821408 BP Diastolic BP Location Tested BP Systolic [...] Weight in lbs Pre/Post Dialysis Refused Weight 202.537436342555 BP Diastolic BP Location Tested BP Systolic BP Type 80 117 Fetus Heart Rate Present Fetus Movement Comments Flowsheet Date 05/17/2024 Hidalgo Score Blood Edema Fundus Height Fundus Units Glucose Ketones Leukocytes Nitrite Labor Signs Protein Cervic Dilation Cervic Effacement Cervic Station trace Type Weight in lbs Pre/Post Dialysis Refused 202.655185402175 BP Diastolic BP Location Tested BP Systolic [...] Weight in lbs Pre/Post Dialysis Refused Weight 202.789881706010 BP Diastolic BP Location Tested BP Systolic BP Type 79 118 Fetus Heart Rate Present Fetus Movement Comments Flowsheet Date 05/24/2024 Hidalgo Score Blood Edema Fundus Height Fundus Units Glucose Ketones Leukocytes Nitrite Labor Signs Protein Cervic Dilation Cervic Effacement Cervic Station trace Type Weight in lbs Pre/Post Dialysis Refused Weight 202.494072877362 BP Diastolic BP Location Tested BP Systolic [...] Weight in lbs Pre/Post Dialysis Refused Weight 205.796824306980 BP Diastolic BP Location Tested BP Systolic [...] Rate Present Fetus Movement Comments +FM Bpp 8/8 no cntx, to ld f or labor eval, precautions and education cervix 3-4/60/-2 Flowsheet Date 06/07/2024 Hidalgo Score Blood Edema Fundus Height Fundus Units Glucose Ketones Leukocytes Nitrite Labor Signs Protein Cervic Dilation Cervic Effacement Cervic Station Type Weight in lbs Pre/Post Dialysis Refused BP Diastolic BP Location Tested BP Systolic BP Type Fetus Heart Rate Present Fetus Movement Comments Flowsheet Date 06/07/2024 Hidalgo Score Blood Edema Fundus Height Fundus Units Glucose Ketones Leukocytes Nitrite Labor Signs Protein Cervic Dilation Cervic Effacement Cervic Station Type Weight in lbs Pre/Post Dialysis Refused 202.632881391088 BP Diastolic BP Location Tested BP Systolic BP Type Fetus Heart Rate Present Fetus Movement Comments Patient sent to labor and haider. Menstrual History Last Menstrual Date Menses Monthly On Bcp Conception Prior Menses Frequency Hcg Plus Date Menarche Onset Age Delivery Information Delivery Date Delivery Type Labor Anesthesia Weeks Gestation Incision Type Labor Labor Length Hrs Delivered By Post Complications Tubal Sterilization Discharge Date Comments Discharge Information Feeding Method Contraceptive Method Maternal HG B and HCT Levels
--- OUTSIDE RECORDS SUMMARY | 2024-06-07 15:56 | XMS_ITS | Continuity of Care Document ---
Author Organization [facility] Address [address] [place] [address] [place] [address] Assessment No assessment recorded. Plan of Treatment Reminders Order Date Submit Date Provider Last Modified By Organization Details Last Modified Time Details Appointments U/S OB BPP 2024 02:30P M ULTRASOUND Not available Not available Not available OB ROUTINE 2024 03:30P M DONAVAN PyleM Not available Not available Not available U/S [...] recorde d. Surgeries None recorde d. Imaging US, obstetr ic, biophys ical profile + non-str ess test 2024 025 HAIDER [place], [address], [place], [address], 06/07/2024 16:35:54 Medication Orders None recorde d. Patient TargetsNo targets recorded. Patient InstructionsNo instructions recorded. Reason for Referral None Reported. Results Created Date Observation Date Name Description Value Unit Range Abnormal Flag Note LastModifiedBy Organization Detail LastModifiedTime 02/04/20 24 02/04/2024 US, obste tric, 2nd or 3rd trime ster No observ ation record ed. martha [place] [address], [place], [address], 02/04/2024 16:11:01 02/04/20 24 02/04/2024 US, obste tric, 2nd or 3rd trime ster No observ ation record ed. HAIDER [address], [place], [address], 02/08/2024 12:20:33 02/04/2002/04/2024 US, obste tric, 2nd or 3rd trime ster No observ ation record ed. [address], [place], [address], 02/04/2024 16:55:35 04/05/20 24 04/05/2024 non-s tress test No observ ation record ed. [address] [facility] [address], [place], [address], 04/10/2024 12:16:41 04/06/20 24 04/06/2024 non-s tress test No observ ation record ed. [email or web address] [place] [address], [place], [address], 04/06/2024 15:17:35 04/06/20 24 04/05/2024 non-s tress test No observ ation record ed. [email or web address] [place] [address], [place], [address], 04/06/2024 15:19:18 04/07/20 24 04/07/2024 non-s tress test No observ ation record ed. [email or web address] [place] [address], [place], [address], 04/07/2024 19:51:09 04/07/20 24 04/07/2024 non-s tress test No observ ation record ed. [email or web address] [place] [address], [place], [address], 04/07/2024 19:53:00 04/10/20 24 04/10/2024 US, obste tric, follo w-up No observ ation record ed. [email or web address] [place] [address], [place], [address], 04/10/2024 13:48:06 04/10/20 24 04/10/2024 US, obste tric, follo w-up No observ ation record ed. [email or web address] [address], [place], [address], 04/14/2024 15:56:01 05/17/19 25 05/17/2024 US, obste tric, follo w-up No observ ation record ed. [email or web address] [place] [address], [place], [address], 05/17/2024 13:09:39 05/17/19 25 05/17/2024 US, obste tric, bioph ysica l profi le + non-s tress test No observ ation record ed. [email or web address] [place] [address], [place], [address], 05/17/2024 13:09:51 05/17/19 25 05/17/2024 US, obste tric, follo w-up No observ ation record ed. [address], [place], [address], 05/19/2024 07:33:13 05/22/19 25 05/17/2024 non-s tress test No observ ation record ed. [place] [address], [place], [address], 05/22/2024 20:37:03 05/24/19 25 05/24/2024 US, obste tric, bioph ysica l profi le + non-s tress test No observ ation record ed. [email or web address] [place] [address], [place], [address], 05/24/2024 13:51:08 05/24/19 25 05/24/2024 US, obste tric, bioph ysica l profi le + non-s tress test No observ ation record ed. [email or web address] [address], [place], [address], 05/24/2024 12:39:56 05/24/19 25 05/24/2024 non-s tress test No observ ation record ed. [email or web address] [place] [address], [place], [address], 05/24/2024 21:13:43 05/31/19 25 05/31/2024 US, obste tric, bioph ysica l profi le + non-s tress test No observ ation record ed. [email or web address] [place] [address], [place], [address], 05/31/2024 17:11:34 05/31/19 25 05/31/2024 US, obste tric, bioph ysica l profi le + non-s tress test No observ ation record ed. [email or web address] [address], [place], [address], 06/01/2024 15:26:31 05/31/19 25 05/31/2024 non-s tress test No observ ation record ed. [email or web address] [place] [address], [place], [address], 05/31/2024 20:47:36 06/07/19 US, obste tric, bioph ysica l profi le + non-s tress test No observ ation record ed. [email or web address] [place] [address], [place], [address], 06/07/2024 16:22:40 06/07/19 25 06/07/2024 US, obste tric, bioph ysica l profi le + non-s tress test No observ ation record ed. [email or web address] [address], [place], [address], 06/07/2024 16:35:54 Result Notes None recorded. Problems Name Problem SNOMED Code Status Onset Date Resolution Date Notes Provider Name and Address Organization Details Recorded Time Pregnanc y 34231446 Completed 202104/23/2022 Margaret lai, [facility] 4 12:59:09 Hyperthy roidism in pregnanc y 7731940999 9100 Completed 0.16, T4 WNL - 30 wk TSH WNL Eva lai, [facility] 2 16:46:37 Maternal obesity complica ting pregnanc y, childbir th and the puerperi um, antepart um 4659287469 07 Completed prepreg BMI 35- ante testing 37w Eva lai, [facility] 2 16:46:37 Pregnanc y 59319082 Active 2023 Margaret lai [facility] 4 12:59:09 Advanced maternal age 850792287 Active Dahlia Shirley CNM [address], [place], [address], [facility] 4 14:23:17 Past pregnanc y history of prematur e delivery 942117345 Active 35 weeks - Antenata l testing at 34 per SP Geno Eller er null, [facility] 4 12:19:38 History of hyperthy roidism 832027927 Active last pregnanc y will check labs Dahlia Shirley CNM [address], [place], [address], [facility] 4 14:26:00 Obesity 278501280 Active 2023 35+; ante weekly at 37wks - Start at 34wks due to hx of PTD Geno Eller er null, [facility] 4 12:18:48 Problem Notes None recorded. Procedures Surgical History Date Name Laterality Status Provider Name and Address Organization Details Recorded Time 12/01/19 24 Date of Last Pap Smear completed Margaret Ramos [facility] 12/01/2023 17:37:47 05/20/19 24 Nexplanon Removal completed EDITA Lay [address], [place], [address], [facility] 05/20/2023 13:38:23 04/01/20 22 Control Implant Insertion completed Margaret Ramos [facility] 04/01/2022 19:34:30 05/03/19 16 procedure on nose completed Margaret Ramos [facility] 10/31/2021 10:23:58 05/03/18 95 tympanostomy completed Margaret Ramos [facility] 10/31/2021 10:23:38 Imaging Results Imaging Date Name Status LastModified by Organiz ation Details LastModified Time 06/07/2024 US, obstetric, biophysical profile + non-stress test active [email or web address] [place] [address], [place], [address], 06/07/2024 16:22:40 Procedure Notes None recorded. Medical Equipment None [...] Address Organization Details Last Updated DateTime 06/07/2024 52611.41759 g 35.8 kg/m2 160.02 cm Margaret Ramos [place] - [facility] 06/07/2024 16:26:09 Social History Question Answer Notes LastModified by Organizat ion Details LastModified Time Tobacco Smoking Status Never Smoker Brandee Jiménez [facility] 05/20/2023 09:59:12 Do You Have An Advance Directive? No [email or web address] Information not available 09/04/2021 What Is Your Level Of Alcohol Consumption? None Information not available 11/20/2021 If You Are , What Was Your Level Of Alcohol Consumption Prior To ? Occasional [email or web address] Information not available 05/20/2023 Are You Blind Or Do You Have Difficulty Seeing? No [email or web address] Information not available 09/04/2021 What Is Your Level Of Caffeine Consumption? Occasional [email or web address] Information not available 09/04/2021 How Much Tobacco Do You Chew? None [email or web address] Information not available 09/04/2021 In The 14 Days Before Symptom Onset, Have You Had Close Contact With A Laboratory-confir med COVID-19 While That Case Was Ill? No [email or web address] Information not available 09/04/2021 In The 14 Days Before Symptom Onset, Have You Had Close Contact With A Person Who Is Under Investigation For COVID-19 While That Person Was Ill? No [email or web address] Information not available 09/04/2021 Have You Been To An Area Known To Be High Risk For COVID-19? No [email or web address] Information not available 09/04/2021 Are You Deaf Or Do You Have Serious Difficulty Hearing? No [email or web address] Information not available 09/04/2021 What Type Of Diet Are You Following? REGULAR [email or web address] Information not available 09/04/2021 What Is The Highest Grade Or Level Of School You Have Completed Or The Highest Degree You Have Received? 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 No [email or web address] Information not available 09/04/2021 Have You Ever Been Counseled For Unhealthy Alcohol Use? No [email or web address] Information not available 05/20/2023 Do You Use Protection During Sex? No [email or web address] Information not available 09/04/2021 Do You Use Your Seat Belt Or Car Seat Routinely? Yes [email or web address] Information not available 09/04/2021 Do You Have Smoke And Carbon Monoxide Detectors In Your Home? Yes [email or web address] Information not available 09/04/2021 How Much Tobacco Do You Smoke? No [email or web address] Information not available 09/04/2021 Do You Feel Stressed (tense, Restless, Nervous, Or Anxious, Or Unable To Sleep At Night)? [id number] Information not available 11/20/2021 Do You Use Any Illicit Or Recreational Drugs? No [email or web address] Information not available 09/04/2021 Do You Use Sunscreen Routinely? Yes [email or web address] Information not available 09/04/2021 Has Tobacco Cessation Counseling Been Provided? No [email or web address] Information not available 05/20/2023 Have You Used IV Drugs? No [email or web address] Information not available 09/04/2021 Do You Or Have You Ever Used Any Other Forms Of Tobacco Or Nicotine? No [email or web address] Information not available 05/20/2023 Sex: Female Functional Status Question Answer Note LastModified by Organizat ion Details LastModified Time Do you have difficulty walking or climbing stairs? No [email or web address] Information not available 05/20/2023 Are you able to walk? YESWOREST [email or web address] Information not available 09/04/2021 Are you able to care for yourself? Yes [email or web address] Information not available 05/20/2023 Do you have difficulty dressing or bathing? No [email or web address] Information not available 05/20/2023 What is your exercise level? Occasional Information not available 11/20/2021 Mental Status None recorded. Family History Relationship Description Onset Age of this Age Resolved Age Notes LastModified by Organization Details LastModified Time Unspecified Relation Family history unknown [email or web address] Not available 08/2024 15:24:17 Mother Anxiety disorder [email or web address] Not available 09/04 14:41:49 Medical History Condition [...] SNOMED-CT Code Diagnosis ICD10 Code Diagnosis Note [id number] YAKOV STEIN MD [place] [address] [address] 05/10/2024 09:30:49 05/17/2024 05:45:23 Advanced maternal age 798183718 O09.523 Maternal o besity complicating , childbirth and the puerperium, antepartum 4898431533 07 O99.213 - testing at 34 weeks Past pregn feroz history of premature delivery 769922830 Z87.51 - discussed labor precaution s Gestation period, 34 weeks 25322088 Z3A.34 - continue PNV [id number] Marisa David [place] [address] [address] 05/17/2024 09:35:11 05/17/2024 10:51:19 Multigravida of advanced maternal age 555037997 O09.529 O99.210 Z87.59 Z3A.34 [id number] Margaret Ramos [place] [address],[place] [address] 05/17/2024 09:35:59 05/23/2024 03:51:30 Maternal obesity complicating , childbirth and the puerperium, antepartum 5512349293 07 O99.210 [id number] Dahlia Shirley [facility] [address],[place] [address] 05/17/2024 09:36:24 05/17/2024 12:24:17 Gestation period, 34 weeks 93737025 Z3A.34 continue panel [id number] [facility] [address],[place] [address] 05/24/2024 09:34:35 05/24/2024 09:58:36 Multigravida of advanced maternal age 617027262 O09.529 O99.210 Z87.59 Z3A.35 [id number] Margaret [facility] [address],[place] [address] 05/24/2024 09:35:04 05/25/2024 09:36:34 Maternal obesity complicating , childbirth and the puerperium, antepartum 8920654315 07 O99.210 [id number] Dahlia Shirley [facility] [address],[place] [address] 05/24/2024 09:35:34 05/24/2024 11:17:07 screening 881182742 Z36.85 Gestation period, 35 weeks 87085996 Z3A.35 [id number] [facility] [address] [place] [address] 05/31/2024 15:12:36 06/01/2024 10:28:08 Maternal obesity complicating , childbirth and the puerperium, antepartum 5408635521 07 O99.210 [id number] [facility] [address],[place] [address] 05/31/2024 15:14:33 05/31/2024 16:12:17 Maternal obesity complicating , childbirth and the puerperium, antepartum 9325298992 07 O99.210 Z87.51 Z3A.36 [id number] DONAVAN [facility] [address],[place] [address] 05/31/2024 15:15:54 06/01/2024 16:56:40 Gestation period, 36 weeks 96226792 Z3A.36 continue vitamin [id number] Bessie Cle[facility] [place] [address],[place] [address] 06/07/2024 15:23:04 06/07/2024 16:24:33 care: poor obstetric history 406404755 O09.293 O99.213 O99.283 [id number] Dahlia Shirley [facility] [address],[place] [address] 06/07/2024 15:24:13 06/07/2024 16:30:49 Gestation period, 37 weeks 68059916 Z3A.37 cond ition affecting obstetrical care of mother 068829078 O36.90X0 Health Concerns Section Related Observation LastModified by Organization Detai ls LastModified Time None Recorded Concern Status LastModified by Organization Details LastModified Time None Recorded Payers Encounter Date Sequence Insurance Name Policy Number Policy Kang Covered Member ID Kang Member ID Guarantor Name 06/07/[address] 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 12/31/19 24 1 O Positive 212 Benjamin isaacs OPEN Fetus Data First Name Last Name Admitted to NICU Weight (g) Sex Living Outcome Pediatric Complications Fetus ID Race Codes Race Delivery Type [id number] Problems Problem Notes placenta appears bilobed Problem Name Start Date End Date Resolution Snomed Code Not e Obesity 01/10/2024 310197239 35+; ante weekly at 37wks - Start at 34wks due to hx of PTD Advanced maternal age 951131798 History of hyperthyroidism 324990465 last pregnan cy will check labs Past history of premature delivery 360531562 35 wee ks - testing at 34 [...] Weight in lbs Pre/Post Dialysis Refused Weight 206.492033527454 BP Diastolic BP Location Tested BP Systolic [...] Type Weight in lbs Pre/Post Dialysis Refused 203.66664280788 BP Diastolic BP Location Tested BP Systolic BP Type 81 126 Fetus Heart Rate Present Fetus Movement Comments anatomy complete, +FM, preca utions and education f/u 4 weeks Flowsheet Date 04/05/2024 Hidalgo Score Blood Edema Fundus Height Fundus Units Glucose Ketones Leukocytes Nitrite Labor Signs Protein Cervic Dilation Cervic Effacement Cervic Station Type Weight in lbs Pre/Post Dialysis Refused 207.564444617871 BP Diastolic BP Location Tested BP Systolic [...] Weight in lbs Pre/Post Dialysis Refused Weight 207.429636134522 BP Diastolic BP Location Tested BP Systolic BP Type 78 133 Fetus Heart Rate Present Fetus Movement Comments Flowsheet Date 04/07/2024 Hidalgo Score Blood Edema Fundus Height Fundus Units Glucose Ketones Leukocytes Nitrite Labor Signs Protein Cervic Dilation Cervic Effacement Cervic Station Type Weight in lbs Pre/Post Dialysis Refused Weight 204.942457136168 BP Diastolic BP Location Tested BP Systolic [...] Type Weight in lbs Pre/Post Dialysis Refused 202.357038579846 BP Diastolic BP Location Tested BP Systolic [...] Weight in lbs Pre/Post Dialysis Refused Weight 202.625990394972 BP Diastolic BP Location Tested BP Systolic BP Type 80 117 Fetus Heart Rate Present Fetus Movement Comments Flowsheet Date 05/17/2024 Hidalgo Score Blood Edema Fundus Height Fundus Units Glucose Ketones Leukocytes Nitrite Labor Signs Protein Cervic Dilation Cervic Effacement Cervic Station trace Type Weight in lbs Pre/Post Dialysis Refused 202.340059104163 BP Diastolic BP Location Tested BP Systolic [...] Weight in lbs Pre/Post Dialysis Refused Weight 202.773458559748 BP Diastolic BP Location Tested BP Systolic BP Type 79 118 Fetus Heart Rate Present Fetus Movement Comments Flowsheet Date 05/24/2024 Hidalgo Score Blood Edema Fundus Height Fundus Units Glucose Ketones Leukocytes Nitrite Labor Signs Protein Cervic Dilation Cervic Effacement Cervic Station trace Type Weight in lbs Pre/Post Dialysis Refused Weight 202.279144546678 BP Diastolic BP Location Tested BP Systolic [...] Weight in lbs Pre/Post Dialysis Refused Weight 205.001953757730 BP Diastolic BP Location Tested BP Systolic [...] Type Weight in lbs Pre/Post Dialysis Refused 202.353522078497 BP Diastolic BP Location Tested BP Systolic [...]
--- OUTSIDE RECORDS SUMMARY | 2024-06-07 15:56 | XMS_ITS | Data Portability ---
Author Organization [facility] Address [address] [place] [address] Assessment Encounter Date Assessment Date Assessment LastModified [...] + non-str ess test 2024 025 [email or web address] [place], [place], [address], 06/01/2024 20:48:58 non-str ess test 2024 025 [email or web address] [place], [address], [place], [address], 06/02/2024 07:10:04 US, obstetr ic, biophys ical profile + non-str ess test 2024 025 [email or web address] [place], [place], [address], 06/07/2024 16:35:54 Medication Orders None recorde d. [...] Strep , Refle x Susce ptibi lity ([facility]/ [facility]/K H/[facility] ) Speci men Sourc e: Vagin a/Rec elyse Speci men Type: Vagin al/Re ctal Speci men Date: 2024 0958 Resul t Date: 2024 1724 Resul t Statu s: Final resul t Abnor mal: No Resul ting Lab: [facility] [address] [facility] [address] Tel: CULTU RE ----- ----- ----- --- No Group B strep isola wilver at 2 days (ronnie ctive broth enhan cemen t) Not Available [facility] (Lab) [address] [facility], [place], [address], 05/27/2024 18:27:40 05/17/19 25 05/17/2024 US, obste tric, follo w-up No observ ation record ed. [email or web address] [address], [place], [address], 05/17/2024 13:09:39 05/17/19 25 05/17/2024 US, obste tric, bioph ysica l profi le + non-s tress test No observ ation record ed. [email or web address] [place] [address], [place], [address], 05/17/2024 13:09:51 05/17/19 25 05/17/2024 US, obste tric, follo w-up No observ ation record ed. [email or web address] [address], [place], [address], 05/19/2024 07:33:13 05/22/19 25 05/17/2024 non-s tress test No observ ation record ed. [place] [address], [place], [address], 05/22/2024 20:37:03 05/24/19 25 05/24/2024 US, obste tric, bioph ysica l profi le + non-s tress test No observ ation record ed. [email or web address] [place] [address], [place], [address], 05/24/2024 13:51:08 05/24/19 25 05/24/2024 US, obste tric, bioph ysica l profi le + non-s tress test No observ ation record ed. [email or web address] [address], [place], [address], 05/24/2024 12:39:56 05/24/19 25 05/24/2024 non-s tress test No observ ation record ed. [place] [address], [place], [address], 05/24/2024 21:13:43 05/31/19 25 05/31/2024 US, obste tric, bioph ysica l profi le + non-s tress test No observ ation record ed. [email or web address] [place] [address], [place], [address], 05/31/2024 17:11:34 05/31/19 25 05/31/2024 US, obste tric, bioph ysica l profi le + non-s tress test No observ ation record ed. [email or web address] [address], [place], [address], 06/01/2024 15:26:31 05/31/19 25 05/31/2024 non-s tress test No observ ation record ed. [email or web address] [place] [address], [place], [address], 05/31/2024 20:47:36 06/07/19 US, obste tric, bioph ysica l profi le + non-s tress test No observ ation record ed. [email or web address] [place] [address], [place], [address], 06/07/2024 16:22:40 06/07/19 25 06/07/2024 US, obste tric, bioph ysica l profi le + non-s tress test No observ ation record ed. [email or web address] [address], [place], [address], 06/07/2024 16:35:54 Result Notes None recorded. Problems Name Problem SNOMED Code Status Onset Date Resolution Date Notes Provider Name and Address Organization Details Recorded Time Pregnanc y 31031169 Completed 202104/23/2022 Margaret Ramos [facility] 12:59:09 Hyperthy roidism in pregnanc y 4321586854 9100 Completed 0.16, T4 WNL - 30 wk TSH WNL Eva mayo null, [facility] 2 16:46:37 Maternal obesity complica ting pregnanc y, childbir th and the puerperi um, antepart um 3642644980 07 Completed prepreg BMI 35- ante testing 37w Eva Burden l null, [facility] 2 16:46:37 Pregnanc y 03280181 Active 2023 Margaret Ramos null, [facility] 4 12:59:09 Advanced maternal age 139982319 Active Dahlia Shirley CNM [address], [place], [address], , P.C. 4 14:23:17 Past pregnanc y history of prematur e delivery 419453422 Active 35 weeks - Antenata l testing at 34 per SP Geno Eller er null, [facility] 4 12:19:38 History of hyperthy roidism 039446903 Active last pregnanc y will check labs Dahlia Shirley CNM [address], [place], [address], , P.C[facility] 4 14:26:00 Obesity 886299221 Active 2023 35+; ante weekly at 37wks - Start at 34wks due to hx of PTD Geno Eller er null, [facility] 4 12:18:48 Problem Notes None recorded. Procedures Surgical History Date Name Laterality Status Provider Name and Address Organization Details Recorded Time 12/01/19 24 Date of Last Pap Smear completed Margaret Ramos [facility] 12/01/2023 17:37:47 05/20/19 24 Nexplanon Removal completed EDITA Lay [address], [place], [address], [place] [facility] 05/20/2023 13:38:23 04/01/20 22 Control Implant Insertion completed Margaret Ramos [facility] 04/01/2022 19:34:30 05/03/19 16 procedure on nose completed Margaret Ramos [facility] 10/31/2021 10:23:58 05/03/18 95 tympanostomy completed Margaret Ramos [facility] 10/31/2021 10:23:38 Imaging Results Imaging Date Name Status LastModified by Organiz ation Details LastModified Time 05/17/2024 US, obstetric, follow-up completed [email or web address] [place] [address], [place], [address], 05/17/2024 13:09:39 05/17/2024 US, obstetric, biophysical profile + non-stress test completed [email or web address] [place] [address], [place], [address], 05/17/2024 13:09:51 05/17/2024 US, obstetric, follow-up completed [email or web address] [address], [place], [address], 05/19/2024 07:33:13 05/17/2024 non-stress test completed [place] [address], [place], [address], 05/22/2024 20:37:03 05/24/2024 US, obstetric, biophysical profile + non-stress test completed [email or web address] [place] [address], [place], [address], 05/24/2024 13:51:08 05/24/2024 US, obstetric, biophysical profile + non-stress test completed [email or web address] [address], [place], [address], 05/24/2024 12:39:56 05/24/2024 non-stress test completed [email or web address] [place] [address], [place], [address], 05/24/2024 21:13:43 05/31/2024 US, obstetric, biophysical profile + non-stress test completed [email or web address] [place] [address], [place], [address], 05/31/2024 17:11:34 05/31/2024 US, obstetric, biophysical profile + non-stress test completed [email or web address] [address], [place], [address], 06/01/2024 15:26:31 05/31/2024 non-stress test completed [email or web address] [place] [address], [place], [address], 05/31/2024 20:47:36 06/07/2024 US, obstetric, biophysical profile + non-stress test active [place] [address], [place], [address], 06/07/2024 16:22:40 06/07/2024 US, obstetric, biophysical profile + non-stress test active [email or web address], [place], [address], 06/07/2024 16:35:54 Procedure Notes None recorded. Medical Equipment None [...] Updated DateTime 05/31/2024 160.02 cm 36.3 kg/m2 32117.44 g 117 mm[Hg] 79 mm[Hg] Margaret Ramos [facility] 20:46:16 Date Recorded Body weight Body mass index (BMI) Body height Provider Name and Address Organization Details Last Updated DateTime 06/07/2024 46589.54316 g 35.8 kg/m2 160.02 cm Margaret Ramos [facility] 06/07/2024 16:26:09 Social History Question Answer Notes LastModified by Organizat ion Details LastModified Time Tobacco Smoking Status Never Smoker Brandee Jiménez [facility] 05/20/2023 09:59:12 Do You Have An Advance Directive? No [email or web address] Information not available 09/04/2021 What Is Your Level Of Alcohol Consumption? None Information not available 11/20/2021 If You Are , What Was Your Level Of Alcohol Consumption Prior To ? Occasional [email or web address] Information not available 05/20/2023 Are You Blind Or Do You Have Difficulty Seeing? No [email or web address] Information not available 09/04/2021 What Is Your Level Of Caffeine Consumption? Occasional [email or web address] Information not available 09/04/2021 How Much Tobacco Do You Chew? None [email or web address] Information not available 09/04/2021 In The 14 Days Before Symptom Onset, Have You Had Close Contact With A Laboratory-confir med COVID-19 While That Case Was Ill? No [email or web address] Information not available 09/04/2021 In The 14 Days Before Symptom Onset, Have You Had Close Contact With A Person Who Is Under Investigation For COVID-19 While That Person Was Ill? No [email or web address] Information not available 09/04/2021 Have You Been To An Area Known To Be High Risk For COVID-19? No [email or web address] Information not available 09/04/2021 Are You Deaf Or Do You Have Serious Difficulty Hearing? No [email or web address] Information not available 09/04/2021 What Type Of Diet Are You Following? REGULAR [email or web address] Information not available 09/04/2021 What Is The Highest Grade Or Level Of School You Have Completed Or The Highest Degree You Have Received? 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 No [email or web address] Information not available 09/04/2021 Have You Ever Been Counseled For Unhealthy Alcohol Use? No Information not available 05/20/2023 Do You Use Protection During Sex? No [email or web address] Information not available 09/04/2021 Do You Use Your Seat Belt Or Car Seat Routinely? Yes [email or web address] Information not available 09/04/2021 Do You Have Smoke And Carbon Monoxide Detectors In Your Home? Yes [email or web address] Information not available 09/04/2021 How Much Tobacco Do You Smoke? No [email or web address] Information not available 09/04/2021 Do You Feel Stressed (tense, Restless, Nervous, Or Anxious, Or Unable To Sleep At Night)? [id number] Information not available 11/20/2021 Do You Use Any Illicit Or Recreational Drugs? No [email or web address] Information not available 09/04/2021 Do You Use Sunscreen Routinely? Yes [email or web address] Information not available 09/04/2021 Has Tobacco Cessation Counseling Been Provided? No [email or web address] Information not available 05/20/2023 Have You Used IV Drugs? No [email or web address] Information not available 09/04/2021 Do You Or Have You Ever Used Any Other Forms Of Tobacco Or Nicotine? No [email or web address] Information not available 05/20/2023 Sex: Female Functional Status Question Answer Note LastModified by Organizat ion Details LastModified Time Do you have difficulty walking or climbing stairs? No [email or web address] Information not available 05/20/2023 Are you able to walk? YESWOREST [email or web address] Information not available 09/04/2021 Are you able to care for yourself? Yes Information not available 05/20/2023 Do you have difficulty dressing or bathing? No [email or web address] Information not available 05/20/2023 What is your exercise level? Occasional Information not available 11/20/2021 Mental Status None recorded. Family History Relationship Description Onset Age of this Age Resolved Age Notes LastModified by Organization Details LastModified Time Unspecified Relation Family history unknown [email or web address] Not available 08/2024 15:24:17 Mother Anxiety disorder [email or web address] Not available 09/04 14:41:49 Medical History Condition [...] SNOMED-CT Code Diagnosis ICD10 Code Diagnosis Note [id number] Clara Rojas [place] [address],[place] [address] 09/04/2021 13:52:10 09/04/2021 14:17:16 [id number] Nereyda Alba [place] [address],[place] [address] 09/04/2021 13:54:12 09/05/2021 16:03:09 test positive 960423726 Z32.01 Risk factors addressed: Tobacco Cessation, Safe [...] all 3. Handouts given and discussed with patient. ildbirth classes recommende d.New OB sheet given.If previous , counseling .Pt verbalizes that she understand s the importance of above instructio ns.All questions were answered.P atient reminded to have annual well woman examinatio n and address preventati ve healthcare . Gynecologi c examination 83965277 Z01.419 [id number] [facility] [address],[place] [address] 10/02/2021 11:49:39 10/02/2021 12:18:15 screening 838696030 Z36.82 [id number] Clark Reinoso MD [place] [address],[place] [address] 10/02/2021 11:50:15 10/02/2021 13:38:17 Routine care 986589335 Z34.01 [id number] Dahlia Shirley [facility] [address],[place] [address] 10/31/2021 10:14:20 10/31/2021 10:50:11 Routine care 501034391 Z34.92 [id number] [facility] [address],[place] [address] 11/20/2021 16:33:43 11/20/2021 17:49:49 screening for malformation 346488949 Z36.3 [id number] Clark Reinoso MD [place] [address],[place] [address] 11/20/2021 16:34:37 11/20/2021 18:30:19 Routine care 057252958 Z34.01 [id number] Clark Reinoso MD [place] [address],[place] [address] 12/18/2021 16:52:36 12/18/2021 18:05:10 Routine care 452345433 Z34.01 [id number] Paola Carrasquillo MD [place] [address],[place] [address] 01/13/2022 14:31:46 01/14/2022 14:49:48 Maternal obesity complicating , childbirth and the puerperium, antepartum 3492615758 07 O99.213 Hyperthyro idism in 4082834477 9100 E05.90 Routine an tenatal care 255964242 Z34.03 [id number] [facility] [address],[place] [address] 01/30/2022 12:38:41 01/30/2022 12:59:19 Routine care 446879420 Z34.92 Hyperthyro idism in 2207299411 9100 E05.90 [id number] Dahlia Shirley [facility] [address] [place] [address] 02/13/2022 16:36:58 02/13/2022 17:07:17 Routine care 807423567 Z34.92 [id number] Clara Rojas [place] [address],[place] [address] 02/23/2022 17:41:52 02/24/2022 14:50:53 Uterine size for dates discrepancy 385881686 O26.849 Z3A.34 [id number] Dahlia Shirley [facility] [address] [place] [address] 02/25/2022 15:34:20 02/25/2022 16:24:47 Routine care 059811696 Z34.92 [id number] Margaret Ramos [place] [address] [place] [address] 04/01/2022 14:33:49 04/01/2022 16:26:21 care 474745022 Z39.2 Insertion of subcutaneous contraceptive 941632404 Z30.9 Insertion of intrauterine contraceptive device 40740146 Z30.430 Screening procedure 2012 5006 Z13.9 [id number] Dahlia Shirley [facility] [address] [place] [address] 11/04/2022 11:01:52 11/04/2022 13:25:47 Gynecologic examination 58422611 Z01.419 [id number] [facility] [address],[place] [address] 05/12/2022 11:42:20 05/12/2022 15:44:50 Abnormal uterine bleeding 5356357279 9100 N93.9 10 weeks post with continued bleeding. Discussed possible causes. U/S pasquale and will determine plan from there. [id number] EDITA Lay [place] [address],[place] [address] 05/20/2023 09:59:06 05/20/2023 13:56:46 Removal of subcutaneous contraceptive 853351755 Z30.46 nexplanon removed (see procedure note)preca utions reviewed, encouraged daily PNV [id number] Clara Rojas [place] [address],[place] [address] 05/13/2022 11:10:02 05/13/2022 14:53:44 Abnormal uterine bleeding 4626149697 9100 N93.9 [id number] [facility] [address],[place] [address] 05/18/2022 14:44:25 05/19/2022 17:03:36 Abnormal uterine bleeding 8108399390 [address] Dahlia would like 2 months of ocp and return for follow up ultrasound . Precaution s given to patient. She verbalized understand ing. OCP samples given. [id number] [facility] [address],[place] [address] 07/20/2022 09:34:31 07/20/2022 10:57:04 Cyst of left ovary 0101175961 8568713 N83.202 [id number] [facility] [address],[place] [address] 07/21/2022 09:24:02 07/23/2022 10:23:05 Abnormal uterine bleeding 9385783853 9100 N93.9 Bleeding has resolved. Ultrasound normal. Discussed precaution s and patient will let us know if any further bleeding or problems. [id number] [facility] [address],[place] [address] 11/02/2023 11:13:32 11/02/2023 12:39:23 screening 698052258 Z36.87 Z3A.01 [id number] Bessie Cleaning [place] [address],[place] [address] 12/01/2023 16:55:54 12/01/2023 17:24:00 [id number] Dahlia Shirley CNM [place] [address],[place] [address] 12/01/2023 16:56:14 12/02/2023 09:45:25 Amenorrhea 40324333 N91.2 screening 2437 66633 Z36.89 Genetic in vestigation procedure 24549851 Z31.430 Gynecologi c examination 30084763 Z11.51 Z11.3 [id number] [facility] [address],[place] [address] 12/23/2023 15:32:05 12/23/2023 16:30:37 screening 213972767 Z36.82 Z3A.13 [id number] Dahlia Shirley CNM [place] [address],[place] [address] 12/31/2023 12:32:29 12/31/2023 14:52:49 Routine care 764946302 Z34.92 continue panel Gestation period, 14 weeks 34995946 Z3A.14 [id number] [facility] [address],[place] [address] 02/04/2024 14:52:41 02/04/2024 16:15:33 screening for malformation 900827065 Z36.3 Z3A.19 [id number] Dahlia Shirley CNM [place] [address],[place] [address] 02/04/2024 14:53:46 02/07/2024 09:14:41 Gestation period, 20 weeks 54393526 Z3A.20 continue vitamin [id number] Dahlia Shirley CNM [place] [address],[place] [address] 04/05/2024 10:48:21 04/05/2024 12:07:58 Gestation period, 28 weeks 69168348 Z3A.28 Past pregn feroz history of premature labor 144889952 Z87.51 [id number] Margaret Ramos [place] [address],[place] [address] 04/06/2024 15:10:40 04/06/2024 15:39:47 Reduced movement 545273803 O36.8199 [id number] aMrgaret Ramos [place] [address],[place] [address] 04/07/2024 14:41:28 04/10/2024 11:12:47 Reduced movement 770336619 O36.8199 [id number] Bessie Cleaning [place] [address],[place] [address] 04/10/2024 12:30:32 04/10/2024 13:12:37 care: poor obstetric history 217290399 O09.293 O09.523 Z3A.29 [id number] YAKOV STEIN MD [place] [address],[place] [address] 05/10/2024 09:30:49 05/17/2024 05:45:23 Advanced maternal age 707086536 O09.523 Maternal o besity complicating , childbirth and the puerperium, antepartum 9814769629 07 O99.213 - testing at 34 weeks Past pregn feroz history of premature delivery 468853990 Z87.51 - discussed labor precaution s Gestation period, 34 weeks 06190578 Z3A.34 - continue PNV [id number] Marisa Hernandez [place] [address],[place] [address] 05/17/2024 09:35:11 05/17/2024 10:51:19 Multigravida of advanced maternal age 117550954 O09.529 O99.210 Z87.59 Z3A.34 [id number] Margaret Ramos [place] [address],[place] [address] 05/17/2024 09:35:59 05/23/2024 03:51:30 Maternal obesity complicating , childbirth and the puerperium, antepartum 5264612056 07 O99.210 [id number] Dahlia Shirley [facility] [address],[place] [address] 05/17/2024 09:36:24 05/17/2024 12:24:17 Gestation period, 34 weeks 54456985 Z3A.34 continue panel [id number] [facility] [address],[place] [address] 05/24/2024 09:34:35 05/24/2024 09:58:36 Multigravida of advanced maternal age 560534572 O09.529 O99.210 Z87.59 Z3A.35 [id number] Margaret Ramos [place] [address],[place] [address] 05/24/2024 09:35:04 05/25/2024 09:36:34 Maternal obesity complicating , childbirth and the puerperium, antepartum 9562073096 07 O99.210 [id number] Dahlia Shirley [facility] [address],[place] [address] 05/24/2024 09:35:34 05/24/2024 11:17:07 screening 376542230 Z36.85 Gestation period, 35 weeks 66018454 Z3A.35 [id number] Margaret Ramos [place] [address],[place] [address] 05/31/2024 15:12:36 06/01/2024 10:28:08 Maternal obesity complicating , childbirth and the puerperium, antepartum 2637719855 07 O99.210 [id number] [facility] [address],[place] [address] 05/31/2024 15:14:33 05/31/2024 16:12:17 Maternal obesity complicating , childbirth and the puerperium, antepartum 6210094323 07 O99.210 Z87.51 Z3A.36 [id number] [facility] [address],[place] [address] 05/31/2024 15:15:54 06/01/2024 16:56:40 Gestation period, 36 weeks 55379963 Z3A.36 continue vitamin [id number] Bessie Cleaning [place] [address],[place] [address] 06/07/2024 15:23:04 06/07/2024 16:24:33 care: poor obstetric history 819141920 O09.293 O99.213 O99.283 [id number] [facility] [address],[place] [address] 06/07/2024 15:24:13 06/07/2024 16:30:49 Gestation period, 37 weeks 83693048 Z3A.37 cond ition affecting obstetrical care of mother 934278362 O36.90X0 Health Concerns Section Related Observation LastModified by Organization Detai ls LastModified Time None Recorded Concern Status LastModified by Organization Details LastModified Time None Recorded Advance Directives Directive N: Payers Encounter Date Sequence Insurance Name Policy Number Policy Kang Covered Member ID Kang Member ID Guarantor Name 05/31/2024 1 [facility] [id number] 0003 Lacey Elba [id number] [facility] 05/31/2024 1 [facility] [id number] 0003 Lacey Elba [id number] [facility] 05/31/2024 1 [facility] [id number] 0003 Lacey Elba [id number] Lacey Elba 06/07/2024 1 [facility] [id number] [id number] [facility]24 1 [facility] [id number] 0003 Lacey Elba [id number] [facility] OBGyn Episode Ob Episode Information Episode Created Date Number of Fetuses Patient Bloodtype Patient rh Status Prepregnancy Weight lbs Domestic Partner Domestic Partner Phone Father Name It Systems Engineer Status 10/03/19 22 1 O Positive 202 CLOSED Fetus Data First Name Last Name Admitted to NICU Weight (g) Sex Living Outcome Pediatric Complications Fetus ID Race Codes Race Delivery Type 2466.40 63 F true Prematur e cpap x2 minutes [id number] Vaginal Delivery Problems Problem Notes PNL WNL/NL NIPT Problem Name Start Date End Date Resolution Snomed Code Not e Hyperthyroidism in 71249696870389 0.16, T4 WNL - 30 wk TSH WNL Maternal obesity complicating , childbirth and the puerperium, antepartum 507600932351 prepr eg BMI 35- ante testing 37w [...] Gestation 0 [email or web address] 10/02/2021 04/04/20 22 0 Pre-sharath Flowsheet Flowsheet Date 10/02/2021 Hidalgo Score Blood Edema Fundus Height Fundus Units Glucose Ketones Leukocytes Nitrite Labor Signs Protein Cervic Dilation Cervic Effacement Cervic Station Type Weight in lbs Pre/Post Dialysis Refused Weight 199.006274425432 BP Diastolic BP Location Tested BP Systolic [...] Weight in lbs Pre/Post Dialysis Refused Weight 197.948767080883 BP Diastolic BP Location Tested BP Systolic [...] Weight in lbs Pre/Post Dialysis Refused Weight 198.636281244471 BP Diastolic BP Location Tested BP Systolic [...] Weight in lbs Pre/Post Dialysis Refused Weight 200.817103522622 BP Diastolic BP Location Tested BP Systolic [...] Weight in lbs Pre/Post Dialysis Refused Weight 202.114578194395 BP Diastolic BP Location Tested BP Systolic [...] Weight in lbs Pre/Post Dialysis Refused Weight 200.074946231757 BP Diastolic BP Location Tested BP Systolic [...] Weight in lbs Pre/Post Dialysis Refused Weight 201.817559524825 BP Diastolic BP Location Tested BP Systolic [...] Weight in lbs Pre/Post Dialysis Refused Weight 201.768870330277 BP Diastolic BP Location Tested BP Systolic BP Type 73 112 Fetus Heart Rate Present Fetus Movement A Yes Comments preadmission scheduled, zachary eid well, precautions reviewed start testing at 37 weeks f/u 2 weeks Flowsheet Date 04/01/2022 Hidalgo Score Blood Edema Fundus Height Fundus Units Glucose Ketones Leukocytes Nitrite Labor Signs Protein Cervic Dilation Cervic Effacement Cervic Station Type Weight in lbs Pre/Post Dialysis Refused Weight 185.319247495880 BP Diastolic BP Location Tested BP Systolic [...] Estim ated Date of Delivery false Thalassemia (Haitian, Iraqi, Mediterranean, Or Background): MCV < 80 false Neural Tube Defect (Meningomyelocele, Spina Bifi da, Or Anencephaly) false Congenital Heart Defect false Down Syndrome false Tristan-Sachs (eg, Evangelical, Cajun, Wolof-Macanese) f alse Ines Disease false Sickle Cell Disease Or Trait () false Hemophilia Or Other Blood Disorders false Muscular Dystrophy false Cystic Fibrosis false Economy's Chorea false Intellectual Disability/Autism false If Yes, [...] Tubal Sterilization Discharge Date Comments 2 None Regional-Ep idural 35.1 true Dahlia Shirley CNM PROM, Maternal Obesity & Gbs unknown Discharge Information Feeding Method Contraceptive Method Maternal HG B and HCT Levels Ob Episode Information Episode Created Date Number of Fetuses Patient Bloodtype Patient rh Status Prepregnancy Weight lbs Domestic Partner Domestic Partner Phone Father Name It Systems Engineer Status 12/31/19 24 1 O Positive 212 Benjamin Maxwell n OPEN Fetus Data First Name Last Name Admitted to NICU Weight (g) Sex Living Outcome Pediatric Complications Fetus ID Race Codes Race Delivery Type [id number] Problems Problem Notes placenta appears bilobed Problem Name Start Date End Date Resolution Snomed Code Not e Obesity 01/10/2024 [id number] 35+; ante weekly at 37wks - Start at 34wks due to hx of PTD Advanced maternal age [id number] History of hyperthyroidism [id number] last pregnan cy will check labs Past history of premature delivery [id number] wee ks - testing at 34 per SP Alex Calculation Initial Alex Date Initial Exam Date Initial Exam Provider Initial Ultrasound Date Last Menstrual Period Date Ultra Sound Weeks Gestation 06/24/2024 12/01/2023 Dahlia Casper 12/01/2023 10 Eighteen To Twenty Week Alex Update Ultra Sound Date Fundal Height At Umbil Quickening Date Ultra Sound Latest Weeks Gestation Final Alex Confirmed By Final Alex Confirmed Date Final Alex Date Ultra Sound Latest Days Gestation 0 0 Pre- Flowsheet Flowsheet Date 12/31/2023 Hidalgo Score Blood Edema Fundus Height Fundus Units Glucose Ketones Leukocytes Nitrite Labor Signs Protein Cervic Dilation Cervic Effacement Cervic Station neg none none trace Type Weight in lbs Pre/Post Dialysis Refused Weight 206.729849040066 BP Diastolic BP Location Tested BP Systolic [...] Type Weight in lbs Pre/Post Dialysis Refused 203.53790848612 BP Diastolic BP Location Tested BP Systolic BP Type 81 126 Fetus Heart Rate Present Fetus Movement Comments anatomy complete, +FM, preca utions and education f/u 4 weeks Flowsheet Date 04/05/2024 Hidalgo Score Blood Edema Fundus Height Fundus Units Glucose Ketones Leukocytes Nitrite Labor Signs Protein Cervic Dilation Cervic Effacement Cervic Station Type Weight in lbs Pre/Post Dialysis Refused 207.649117375513 BP Diastolic BP Location Tested BP Systolic [...] Weight in lbs Pre/Post Dialysis Refused Weight 207.694162587390 BP Diastolic BP Location Tested BP Systolic BP Type 78 133 Fetus Heart Rate Present Fetus Movement Comments Flowsheet Date 04/07/2024 Hidalgo Score Blood Edema Fundus Height Fundus Units Glucose Ketones Leukocytes Nitrite Labor Signs Protein Cervic Dilation Cervic Effacement Cervic Station Type Weight in lbs Pre/Post Dialysis Refused Weight 204.025940438874 BP Diastolic BP Location Tested BP Systolic [...] Type Weight in lbs Pre/Post Dialysis Refused 202.980809056472 BP Diastolic BP Location Tested BP Systolic [...] Weight in lbs Pre/Post Dialysis Refused Weight 202.330516831198 BP Diastolic BP Location Tested BP Systolic BP Type 80 117 Fetus Heart Rate Present Fetus Movement Comments Flowsheet Date 05/17/2024 Hidalgo Score Blood Edema Fundus Height Fundus Units Glucose Ketones Leukocytes Nitrite Labor Signs Protein Cervic Dilation Cervic Effacement Cervic Station trace Type Weight in lbs Pre/Post Dialysis Refused 202.112221265374 BP Diastolic BP Location Tested BP Systolic [...] Weight in lbs Pre/Post Dialysis Refused Weight 202.935453851359 BP Diastolic BP Location Tested BP Systolic BP Type 79 118 Fetus Heart Rate Present Fetus Movement Comments Flowsheet Date 05/24/2024 Hidalgo Score Blood Edema Fundus Height Fundus Units Glucose Ketones Leukocytes Nitrite Labor Signs Protein Cervic Dilation Cervic Effacement Cervic Station trace Type Weight in lbs Pre/Post Dialysis Refused Weight 202.212617959629 BP Diastolic BP Location Tested BP Systolic [...] Weight in lbs Pre/Post Dialysis Refused Weight 205.272645424616 BP Diastolic BP Location Tested BP Systolic [...] Type Weight in lbs Pre/Post Dialysis Refused 202.657455182608 BP Diastolic BP Location Tested BP Systolic [...]
[2024-06-07 16:39] LABS: Basophils Percent Auto 0.3 % (0.2-1.2); Eosinophils Absolute Auto 0.2 K/mm3 (0-0.3); Eosinophils Percent Auto 1.4 % (0-4.4); Hematocrit 36.8 % (37.0-47.0); Hemoglobin 12.4 g/dL (12.0-15.0); Immature Granulocyte Absolute 0.05 K/mm3 (0.00-0.031); Immature Granulocyte Percent A 0.5 % (0-0.5); Immature Platelet Fraction Pct 14.4 % (0.9-11.2); Lymphocytes Absolute Auto 1.85 K/mm3 (0.9-3.2); Lymphocytes Percent Auto 17.3 % (18.3-44.2); Mean Corpuscular HGB Conc 33.7 g/dl (32-36); Mean Corpuscular Hemoglobin 29.7 pg (26-34); Mean Platelet Volume 13.2 fl (7.4-10.4); Monocytes Absolute Auto 0.7 K/mm3 (0.1-0.6); Monocytes Percent Auto 6.3 % (2.6-8.5); Neutrophils Absolute Auto 7.9 K/mm3 (1.3-6.7); Neutrophils Percent Auto 74.2 % (45.5-73.1); Platelet Count Result 173 k/mm3 (150-375); Red Blood Count 4.18 M/mm3 (4.2-5.4); Red Cell Distribution Width 13.2 % (11.5-14.5); White Blood Count 10.7 K/mm3 (4.5-10.0)
[2024-06-07] MEDS: LACTATED RINGERS 1,000 ML 125 ML IV CONT ×2 (16:40→18:10)
[2024-06-07] MEDS: OXYTOCIN 30 UNITS/NS 500 ML 30 UNITS/500 ML BAG IV CONT (16:52)
[2024-06-07 17:07] LABS: Rapid Plasma Reagin Non-Reactive (NonReactive)
[2024-06-07 17:29] LABS: HIV 1/2 Ab P24 Ag Result Negative (Negative)
--- NOTE | 2024-06-07 17:45 | PM.IMHP ---
H&P: HPI History of Present Illness Date/Time: 06/07/24 17:45 Chief Complaint: pt admitted for IOL. at 37.4 weeks gestation. Being monitored in the office today due to history of delivery at 35 weeks in her first . On US today in the office fetus showed bradycardia and dilation of pulmonary artery. discussed with dr. kern and will plan for delivery. pt complicated by obesity. pt diagnosed with Flu A earlier in the week, currently afebrile Review of Systems Review of Systems: All systems reviewed & are unremarkable except as noted in HPI and below PMFSH Past Medical History Medical History (Updated 06/07/24 @ 17:53 by Dahlia Shirley CNM) Chorioamnionitis, delivered, current hospitalization Social History Social History Smoking status: Never smoker Substance use: never Do You Feel Safe in your Home?: Yes Lack of Transportation: No Lack of Food: Never True Current Housing: I Have Housing Concerned About Future Housing: No Difficulty Paying Gas/Electric Bills: No Difficulty Paying for Meds: No Currently Unemployed: No Education: High School Diploma/GED Difficulty w/ Childcare or Family Care: No Spiritual care concerns: No Meds Home Medications and Allergies Home Medications ?Medication ?Instructions ?Recorded ?Confirmed ?Type vit no.95-ferrous 1 tablet PO DAILY 05/31/24 05/31/24 History fumarate 28 mg-folic acid 800 mcg tablet () ondansetron 4 mg disintegrating 4 mg PO Q8H #20 tabs 06/04/24 Rx tablet Allergies Allergy/AdvReac Type Severity Reaction Status Date / Time No Known Allergies Allergy Verified 06/04/24 18:39 Vital Signs Vital Signs - 24 hr 06/07/24 15:33 06/07/24 15:38 06/07/24 15:43 Temperature Pulse Rate Blood Pressure Pulse Oximetry 100 98 98 Oxygen Delivery 06/07/24 15:46 06/07/24 15:48 06/07/24 15:53 Temperature Pulse Rate 76 Blood Pressure 107/84 Pulse Oximetry 96 97 Oxygen Delivery 06/07/24 15:58 06/07/24 15:59 06/07/24 16:01 Temperature Pulse Rate 78 Blood Pressure 112/82 Pulse Oximetry 96 97 Oxygen Delivery 06/07/24 16:04 06/07/24 16:09 06/07/24 16:10 Temperature Pulse Rate Blood Pressure Pulse Oximetry 95 94 95 Oxygen Delivery 06/07/24 16:11 06/07/24 16:11 06/07/24 16:16 Temperature Pulse Rate Blood Pressure Pulse Oximetry 94 94 95 Oxygen Delivery 06/07/24 16:18 06/07/24 16:21 06/07/24 16:32 Temperature Pulse Rate 80 Blood Pressure 113/82 Pulse Oximetry 95 Oxygen Delivery Room Air 06/07/24 16:46 06/07/24 16:54 06/07/24 17:01 Temperature 36.8 C Pulse Rate 84 70 Blood Pressure 107/73 115/73 Pulse Oximetry Oxygen Delivery 06/07/24 17:40 06/07/24 17:45 Temperature Pulse Rate Blood Pressure Pulse Oximetry 100 100 Oxygen Delivery Exam Const: General: cooperative, healthy appearing and comfortable Chest: Chest palpation & inspection: normal inspection of the chest Resp: Effort & Inspection: normal respiratory effort GI: Other: gravid, soft Back/Spine/Pelvis: Back: no CVA tenderness Skin: General skin exam: normal color, no rashes or lesions noted and elasticity normal Neuro: General: patient oriented x3 Extrem: General: normal to inspection Psych: Appearance: grossly normal H&P: Results Labs Labs: Short CBC 06/07/24 Range/Units 15:57 WBC 10.7 H (4.5-10.0) K/mm3 Hgb 12.4 (12.0-15.0) g/dL Hct 36.8 L (37.0-47.0) % Plt Count 173 (150-375) k/mm3 Assessment and Plan Assessment and plan (1) bradycardia: Status: Acute Plan bradycardia plan IOL currently category 1
--- NOTE | 2024-06-07 18:08 | P.PNAN_ITS ---
Anes - Initial Pre Proc Eval Procedure: labor epidural Date/Time: 06/07/24 18:08 Surgeon: Clark Reinoso MD Pre Op Diagnosis: labor pain Pre Op Diagnosis: Low heart rate Patient Data Age: 33 Gender: F Height: Weight: Last Vital Signs Temp 36.8 C 06/07/24 16:54 Pulse 97 06/07/24 18:07 BP 110/81 06/07/24 18:07 Pulse Ox 99 06/07/24 18:05 O2 Del Method Room Air 06/07/24 16:18 Allergies Allergy/AdvReac Type Severity Reaction Status Date / Time No Known Allergies Allergy Verified 06/04/24 18:39 Home Medications ?Medication ?Instructions ?Recorded ?Confirmed ?Type vit no.95-ferrous 1 tablet PO DAILY 05/31/24 05/31/24 History fumarate 28 mg-folic acid 800 mcg tablet () ondansetron 4 mg disintegrating 4 mg PO Q8H #20 tabs 06/04/24 Rx tablet Laboratory Tests 06/07/24 15:57 WBC 10.7 H K/mm3 (4.5-10.0) RBC 4.18 L M/mm3 (4.2-5.4) Hgb 12.4 g/dL (12.0-15.0) Hct 36.8 L % (37.0-47.0) MCV 88.0 fl (80-100) MCH 29.7 pg (26-34) MCHC 33.7 g/dl (32-36) RDW 13.2 % (11.5-14.5) Plt Count 173 k/mm3 (150-375) MPV 13.2 H fl (7.4-10.4) Immature Gran % (Auto) 0.5 % (0-0.5) Neut % (Auto) 74.2 H % (45.5-73.1) Lymph % (Auto) 17.3 L % (18.3-44.2) [place] % (Auto) 6.3 % (2.6-8.5) Eos % (Auto) 1.4 % (0-4.4) Baso % (Auto) 0.3 % (0.2-1.2) Lymph # (Auto) 1.85 K/mm3 (0.9-3.2) [place] # (Auto) 0.7 H K/mm3 (0.1-0.6) Eos # (Auto) 0.2 K/mm3 (0-0.3) Baso # (Auto) 0.0 K/mm3 (0.0-0.1) Abs Immat Gran (auto) 0.05 H K/mm3 (0.00-0.031) Absolute Neuts (auto) 7.9 H K/mm3 (1.3-6.7) Absolute Nucleated RBC 0.000 K/mm3 (0.0-0.012) Nucleated RBC % 0.0 % (0.0-0.2) % Immature Plt Fraction 14.4 H % (0.9-11.2) RPR Non-reactive (NonReactive) HIV 1&2 Ab/P24 Ag 4thGn Negative (Negative) Patient hx anesthesia problems: none Family hx anesthesia problems: none Results Review: All pre-operative results and documents have been reviewed as part of the pre- operative evaluation. [facility] Past Medical History Medical History Chorioamnionitis, delivered, current hospitalization Social History Social History Smoking status: Never smoker Substance use: never Do You Feel Safe in your Home?: Yes Lack of Transportation: No Lack of Food: Never True Current Housing: I Have Housing Concerned About Future Housing: No Difficulty Paying Gas/Electric Bills: No Difficulty Paying for Meds: No Currently Unemployed: No Education: High School Diploma/GED Difficulty w/ Childcare or Family Care: No Spiritual care concerns: No Anes - Eval Final PreProcedure Day of Procedure 06/07/24 18:08 Patient weight: overweight Airway: Mallampati scale class II Neurological: alert and oriented ASA classification: II Anesthetic plan: proceed Anesthesia type and monitoring: regional epidural and standard monitoring Results Review: All pre-operative results and documents have been reviewed as part of the pre- operative evaluation. Informed Consent: The patient's anesthetic plan and its attendant risks and benefits were discussed with the patient/family/POA. Questions were solicited and answers provided to the satisfaction of the patient/family/POA.
--- NOTE | 2024-06-07 18:23 | PM.OBPNLAB ---
Pain Control Date/time seen: 06/07/24 18:23 pt more comfortable with epidural SVE /-2 AROM moderate amount of clear, odorless fluid, IUPC placed, anticipate vaginal delivery category 1 FHR
--- NOTE | 2024-06-07 20:38 | PM.OBPRVD ---
OB - Vaginal Delivery Note Procedure Delivery date: 06/07/24 Events: Other ( bradycardia) Induction method: AROM and Per Pitocin Protocol Delivery monitor: External FHT and Internal Uterine Route of delivery: Episiotomy description: None Laceration Description: None Specimen: Yes Quantitative Blood Loss (ml): 150 Anesthesia type: Epidural Disposition: Floor Complications: No immediate complications Baby Date of : 06/07/24 Time of : 20:25 Gestational Age by Date: 37 gender: Male Weight (pounds): 6 Weight (ounces): 14 presentation: vertex position: Left Occiput Anterior Placenta delivery description: Spontaneous Cord Vessel Description: 3 Vessels score one minute: 8 score five minutes: 9 Narrative: mother and baby in stable condition
[2024-06-07] MEDS: ONDANSETRON INJ 4 MG/2 ML VIAL IV PUSH ×2 (20:44→22:55)
[2024-06-07] MEDS: ceFAZolin 2 GM/D5W 50 ML 2 GM/50 ML BAG IVPB (20:44)
[2024-06-07] MEDS: OXYTOCIN 30 UNITS/NS 500 ML 30 UNITS/500 ML BAG 125 UNITS IV CONT (21:00)
[2024-06-07] MEDS: miSOPROStol 200 MCG TABLET 800 MCG RECTAL (21:16)
[2024-06-07] MEDS: METHYLERGONOVINE MALEATE 0.2 MG/ML VIAL IM (22:19)
[2024-06-07] MEDS: TRANEXAMIC ACID 1,000MG/ISO100 1,000 MG/100 ML BAG 200 MG IVPB (22:20)
[2024-06-07 22:37] LABS: Basophils Percent Auto 0.2 % (0.2-1.2); Eosinophils Absolute Auto 0.1 K/mm3 (0-0.3); Eosinophils Percent Auto 0.7 % (0-4.4); Hematocrit 33.5 % (37.0-47.0); Hemoglobin 11.1 g/dL (12.0-15.0); Immature Granulocyte Absolute 0.11 K/mm3 (0.00-0.031); Immature Granulocyte Percent A 0.6 % (0-0.5); Lymphocytes Absolute Auto 1.97 K/mm3 (0.9-3.2); Lymphocytes Percent Auto 11.1 % (18.3-44.2); Mean Corpuscular HGB Conc 33.1 g/dl (32-36); Mean Corpuscular Hemoglobin 30.1 pg (26-34); Mean Corpuscular Volume 90.8 fl (80-100); Mean Platelet Volume 12.9 fl (7.4-10.4); Monocytes Absolute Auto 0.8 K/mm3 (0.1-0.6); Monocytes Percent Auto 4.2 % (2.6-8.5); Neutrophils Absolute Auto 14.7 K/mm3 (1.3-6.7); Neutrophils Percent Auto 83.2 % (45.5-73.1); Platelet Count Result 186 k/mm3 (150-375); Red Blood Count 3.69 M/mm3 (4.2-5.4); Red Cell Distribution Width 13.2 % (11.5-14.5); White Blood Count 17.7 K/mm3 (4.5-10.0)
--- NOTE | 2024-06-07 22:45 | P.PNOB_ITS ---
OB - PN: Subj Subjective Date/time seen: 06/07/24 22:45 Interval history: orders at 400 cc loss were to give 800mg rectal cytotec. around 2200 called in to the hospital at 1200 cc loss, orders given by phone for second line, methergine, TXA, labs ordered. once at bs, CLOTH BRUSHING AND SUEDING SUPERVISOR administered anesthesia dose, once pt comfortable was able to evacuate 400cc from uterus and placed a WENCESLAO, hooked up to wall suction, bleeding now minimal and will plan for unit of blood. Dr. Reinoso notified. OB - PN: Obj Data Labs 06/07/24 22:32 Labs: Laboratory Results - last 24 hr 06/07/24 06/07/24 15:57 22:32 WBC 10.7 H 17.7 H RBC 4.18 L 3.69 L Hgb 12.4 11.1 L Hct 36.8 L 33.5 L MCV 88.0 90.8 MCH 29.7 30.1 MCHC 33.7 33.1 RDW 13.2 13.2 Plt Count 173 186 MPV 13.2 H 12.9 H Immature Gran % (Auto) 0.5 0.6 H Neut % (Auto) 74.2 H 83.2 H Lymph % (Auto) 17.3 L 11.1 L [place] % (Auto) 6.3 4.2 Eos % (Auto) 1.4 0.7 Baso % (Auto) 0.3 0.2 Lymph # (Auto) 1.85 1.97 [place] # (Auto) 0.7 H 0.8 H Eos # (Auto) 0.2 0.1 Baso # (Auto) 0.0 0.0 Abs Immat Gran (auto) 0.05 H 0.11 H Absolute Neuts (auto) 7.9 H 14.7 H Absolute Nucleated RBC 0.000 0.000 Nucleated RBC % 0.0 0.0 % Immature Plt Fraction 14.4 H RPR Non-reactive HIV 1&2 Ab/P24 Ag 4thGn Negative OB - PN A/P Time Spent With Patient Time: Total time spent is greater than 50% in coordination of care (as documented) at patient's floor/unit and/or counseling patient:
[2024-06-07] MEDS: LACTATED RINGERS 1,000 ML 75 ML IV CONT (23:00)
[2024-06-07] MEDS: SODIUM CHLORIDE 0.9% IV 250 ML 30 ML IV CONT (23:24)
[2024-06-07 23:29] LABS: Alanine Aminotransferase 20 U/L (6-35); Albumin Level 3.1 g/dL (3.5-5.1); Alkaline Phosphatase 138 U/L (38-126); Anion Gap 8 mmol/L (4-12); Aspartate Amino Transferase 46 U/L (14-36); Bilirubin,Total 0.6 mg/dL (0.2-1.3); Blood Urea Nitrogen 12 mg/dL (7-17); Calcium 8.6 mg/dL (8.4-10.2); Carbon Dioxide 25 mmol/L (22-30); Chloride 103 mmol/L (98-107); Estimated CRCL calculation 98 ml/min; Estimated Glomerular Filt Rate > 60; Glucose 79 mg/dL (65-110); Potassium 4.3 mmol/L (3.4-5.0); Sodium 136 mmol/L (137-145)
[2024-06-07 23:31] LABS: Prothrombin Time 13.1 Seconds (11.1-14.7)
[2024-06-07 23:33] LABS: Fibrinogen 311 mg/dl (215-510); Partial Thromboplastin Time 28.8 Seconds (22.3-36.8)
[2024-06-07 23:51] LABS: D Dimer 3.59 ug/mL (<0.48)
[2024-06-08] VITALS (33 sets, daily range): BP systolic 100–138; BP diastolic 41–88; PULSE 58–134; RESP 16; TEMP 36.3–37.5; O2SAT 97–100
[2024-06-08] MEDS: ACETAMINOPHEN 325 MG TABLET 650 MG PO ×3 (02:11→18:45)
[2024-06-08] MEDS: BENZOCAINE 20% AER SPR (*SP) 56 GM CAN 1 SPRAY TOPICAL (03:53)
[2024-06-08] MEDS: IBUPROFEN 600 MG TABLET PO ×3 (03:53→18:45)
[2024-06-08] MEDS: HYDROcodone/acetaminophen (*CRX) 5-325 MG TABLET 1 TAB PO (05:15)
[2024-06-08 06:01] LABS: Hematocrit 33.1 % (37.0-47.0); Hemoglobin 10.8 g/dL (12.0-15.0)
--- NOTE | 2024-06-08 06:55 | PC.NURSE ---
Brodie Shirley [facility] notified of H&H, no new orders received at this time. Dr. Reinoso will be around this morning to evaluate patient.
--- NOTE | 2024-06-08 07:00 | PC.NURSE ---
Cristina still in place but suction off as of 609, Kari Rodgers RN turned off the suction per orders. Pt states that pain is much better now that suction is turned off.
--- NOTE | 2024-06-08 08:23 | PM.OBPNVD ---
OB - PN: Subj Subjective Date/time seen: 06/08/24 08:23 Interval history: orders at 400 cc loss were to give 800mg rectal cytotec. around 2200 called in to the hospital at 1200 cc loss, orders given by phone for second line, methergine, TXA, labs ordered. once at bs, TRANSFER OPERATOR administered anesthesia dose, once pt comfortable was able to evacuate 400cc from uterus and placed a CRISTINA, hooked up to wall suction, bleeding now minimal and will plan for unit of blood. Dr. Reinoso notified. Patient comments: no complaints, pain well controlled, incisional pain, tolerating diet and flatus present OB - PN: Obj Data Labs 06/08/24 04:58 06/07/24 23:04 Labs: Laboratory Results - last 24 hr 06/07/24 06/07/24 06/07/24 15:57 22:32 23:04 WBC 10.7 H 17.7 H RBC 4.18 L 3.69 L Hgb 12.4 11.1 L Hct 36.8 L 33.5 L MCV 88.0 90.8 MCH 29.7 30.1 MCHC 33.7 33.1 RDW 13.2 13.2 Plt Count 173 186 MPV 13.2 H 12.9 H Immature Gran % (Auto) 0.5 0.6 H Neut % (Auto) 74.2 H 83.2 H Lymph % (Auto) 17.3 L 11.1 L [place] % (Auto) 6.3 4.2 Eos % (Auto) 1.4 0.7 Baso % (Auto) 0.3 0.2 Lymph # (Auto) 1.85 1.97 [place] # (Auto) 0.7 H 0.8 H Eos # (Auto) 0.2 0.1 Baso # (Auto) 0.0 0.0 Abs Immat Gran (auto) 0.05 H 0.11 H Absolute Neuts (auto) 7.9 H 14.7 H Absolute Nucleated RBC 0.000 0.000 Nucleated RBC % 0.0 0.0 % Immature Plt Fraction 14.4 H PT 13.1 INR 1.0 APTT 28.8 Fibrinogen 311 D-Dimer 3.59 H Sodium 136 L Potassium 4.3 Chloride 103 Carbon Dioxide 25 Anion Gap 8 BUN 12 D Creatinine 0.74 Estim Creat Clear Calc 98 Estimated GFR > 60 Glucose 79 Calcium 8.6 Total Bilirubin 0.6 AST 46 H ALT 20 Alkaline Phosphatase 138 H Total Protein 6.0 L Albumin 3.1 L RPR Non-reactive HIV 1&2 Ab/P24 Ag 4thGn Negative Blood Type O Positive Antibody Screen Negative Crossmatch See Detail 06/08/24 04:58 WBC RBC Hgb 10.8 L Hct 33.1 L MCV MCH MCHC RDW Plt Count MPV Immature Gran % (Auto) Neut % (Auto) Lymph % (Auto) [place] % (Auto) Eos % (Auto) Baso % (Auto) Lymph # (Auto) [place] # (Auto) Eos # (Auto) Baso # (Auto) Abs Immat Gran (auto) Absolute Neuts (auto) Absolute Nucleated RBC Nucleated RBC % % Immature Plt Fraction PT INR APTT Fibrinogen D-Dimer Sodium Potassium Chloride Carbon Dioxide Anion Gap BUN Creatinine Estim Creat Clear Calc Estimated GFR Glucose Calcium Total Bilirubin AST ALT Alkaline Phosphatase Total Protein Albumin RPR HIV 1&2 Ab/P24 Ag 4thGn Blood Type Antibody Screen Crossmatch OB - PN A/P Plan day: 1 Plan: routine care Comments: No problems, routine care, Cristina removed, no bleeding Time Spent With Patient Time: Total time spent is greater than 50% in coordination of care (as documented) at patient's floor/unit and/or counseling patient: Exam Const: General: comfortable, no acute distress and alert Resp: Effort & Inspection: normal respiratory effort Auscultation: no crackles, no rales and no rhonchi Cardio: Rate: regular rate Heart sounds: no click, no murmurs and no rubs GI: Inspection: non-distended GI Palp: No Tenderness to palpation present (GI) Auscultation: normal bowel sounds Other: Incision - CDI Extrem: General: normal to inspection, no pedal edema and no calf tenderness
--- NOTE | 2024-06-08 08:30 | PC.NURSE ---
Dr. Reinoso at bedside, Fluid removed from Cristina, Cristina removed. small amount of bleeding noted on peripad. Rausch catheter removed. Pericare performed. Pt told to call out if she feels any gushes from her vagina and when she feels like she needs to get up to the bathroom. Pt verbalized understanding.
[2024-06-08] MEDS: DOCUSATE SODIUM 100 MG CAPSULE PO (09:00)
[2024-06-08] MEDS: MULTIVIT/MIN/PREN/FOL AC/IRON TABLET 1 TAB PO (09:00)
[2024-06-08] MEDS: OSELTAMIVIR PHOSPHATE 75 MG CAPSULE PO (09:01)
--- NOTE | 2024-06-08 14:36 | PC.NURSE ---
Vital signs not done by ELECTRIC ENGINE MECHANIC at noon, went in to do vitals at this time and patient is sleeping. will check vitals when patient wakes up
--- NOTE | 2024-06-08 15:53 | PC.NURSE ---
On 06/08/24, the [facility] nursing faculty, provided care and completed [employer] documentation on this patient. I have reviewed the student's documentation and agree with the findings.
--- NOTE | 2024-06-08 16:15 | PC.NURSE ---
On 06/08/24, the student, Monika Eason, provided care and completed [facility] documentation on this patient. I have reviewed the student's documentation and agree with the findings.
--- NOTE | 2024-06-08 18:56 | WPDANLDPN2 ---
Anes-Prog Note L&D Date/Time: 06/08/24 18:56 Neuraxial method: epidural Epidural/Spinal procedure site: tender Neuro status: Neuro function grossly intact. Cardiovascular status: normal Respiratory status: normal Airway patency: baseline Mental status: baseline Post-Op hydration status: normal Vital Signs: Last Vital Signs Temp 36.3 C L 06/08/24 15:59 Pulse 69 06/08/24 15:59 Resp 16 06/08/24 15:59 BP 100/41 L 06/08/24 15:59 Pulse Ox 97 06/08/24 15:59 O2 Del Method Room Air 06/08/24 11:55 Pain score (VAS): 2/10 I/O: Intake & Output 06/08/24 06/08/24 06/08/24 07:59 15:59 23:59 Intake Total 350 Output Total 1600 400 Balance -1250 -400 Post-procedural complaints: none Patient feedback: Patient satisfied with anesthetic care.
[2024-06-09 00:30] VITALS: BP 105/74; PULSE 92; RESP 16; TEMP 36.6; O2SAT 100
[2024-06-09] MEDS: ACETAMINOPHEN 325 MG TABLET 650 MG PO ×2 (00:55→08:40)
[2024-06-09] MEDS: OSELTAMIVIR PHOSPHATE 75 MG CAPSULE PO ×2 (00:55→08:43)
[2024-06-09] MEDS: IBUPROFEN 600 MG TABLET PO ×2 (00:55→08:42)
[2024-06-09 05:15] VITALS: BP 120/68; PULSE 78; RESP 16; TEMP 36.2; O2SAT 98
--- NOTE | 2024-06-09 07:45 | P.PNOB_ITS ---
OB - PN: Subj Subjective Date/time seen: 06/09/24 07:45 Interval history: pp day 2 doing well some back pain will rx flexeril desires d/c home OB - PN: Obj Data Labs 06/08/24 04:58 06/07/24 23:04 OB - PN A/P Plan day: 2 Plan: routine care and discharge home Time Spent With Patient Time: Total time spent is greater than 50% in coordination of care (as documented) at patient's floor/unit and/or counseling patient: Review of Systems 2 Review of Systems: All systems reviewed & are unremarkable except as noted in HPI and below Exam 2 Const: General: cooperative and healthy appearing Neck: Neck: normal visual inspection Chest: Chest palpation & inspection: normal inspection of the chest Resp: Effort & Inspection: normal respiratory effort Cardio: Rate: regular rate
--- NOTE | 2024-06-09 07:48 | P.DS_ITS ---
DS: Admitting Diagnosis Discharge Date 06/09/24 Admitting Diagnosis IOL, bradycardia DS: Discharge Diagnosis Discharge Diagnosis (1) hemorrhage: Code(s): O72.1 - Other immediate hemorrhage Status: Acute (2) Vaginal delivery: Code(s): O80 - Encounter for full-term uncomplicated delivery Status: Acute OB - DS: Summary OB Procedures : None OB Procedures Intrapartum: Spontaneous Vag Delivery OB Procedures: : None Peripartum Data Laceration Description: None Episiotomy description: None Time Spent with Patient Time attestation: Total time spent providing and/or coordinating discharge services: DS: Data Data Completed and Pending Pending studies at discharge: Pending at discharge 06/07/24 20:45 Surgical [PTH] Routine Discharge Plan Discharge Attending physician on discharge: Clark Reinoso Discharging Clinician: Dahlia Shirley Patient Disposition: Home, Self-Care Activity: pelvic rest Diet: regular Patient Instructions: Antibiotic Form Patient Language: Belarusian Stand Alone Forms: General Discharge Information Follow-up/Referrals: Dahlia Shirley CNM [Certified Nurse Motor Vehicle Lecturer] - 4 Weeks Discharge Medications: New cyclobenzaprine 5 mg tablet 5 mg PO TID PRN (Reason: muscle spasm) Qty: 10 0RF Continued ondansetron 4 mg tablet,disintegrating 4 mg PO Q8H Qty: 20 0RF PNV cmb#95-ferrous fumarate-FA [] 28 mg iron- 800 mcg tablet 1 tablet PO DAILY Date of admission: 06/07/24 15:26 Primary Care Provider: UNKNOWN,DOCTOR Admitting Provider: Clark Reinoso Attending physician on admission: Clark Reinoso Condition: Stable
[2024-06-09 08:00] VITALS: BP 134/95; PULSE 90; RESP 18; TEMP 37; O2SAT 100
[2024-06-09] MEDS: CYCLOBENZAPRINE HCL 5 MG TABLET PO (08:42)
[2024-06-09] MEDS: DOCUSATE SODIUM 100 MG CAPSULE PO (08:42)
== END 2024-06-09 12:37 | disposition home or self-care (01) | DRG 560 ==
LOC: ANHLDR 15:31 → ANHOB2 06-08 03:04
PROVIDERS: Advanced Practice Midwife; Admitting Provider Obstetrics & Gynecology; Visit Provider Obstetrics & Gynecology
DX: O76 Abnormality in fetal heart rate and rhythm complicating labor and delivery (principal); O99.52 Diseases of the respiratory system complicating childbirth; O99.214 Obesity complicating childbirth; O67.8 Other intrapartum hemorrhage; O72.1 Other immediate postpartum hemorrhage; O62.3 Precipitate labor; Z3A.37 37 weeks gestation of pregnancy; Z37.0 Single live birth; J10.1 Influenza due to other identified influenza virus with other respiratory manifestations
CPT/HCPCS: 36415; 36430; 80053; 85014; 85018; 85025; 85055; 85380; 85384; 85610; 85730; 86592; 86703; 86850; 86900; 86901; 86923; 88307; A9270; G0432; J0690; J2210; J2405; J2590; J2795; J7050; J7120; P9016

== ENCOUNTER 2024-07-21 00:41 | Day surgery (SDC) | payer OTHER, SELFPAY ==
[2024-07-20 13:24] VITALS: BMI 32.8
--- NOTE | 2024-07-20 13:38 | SUR.PREOP ---
Report to the Outpatient Waiting Room, entrance under the green pavilion located off [facility], at time 0600 on date 07/20/24. Planned Procedure Time: 0730.? Time changes happen often and if your time is changed the preop area will call you the afternoon before. - You and your visitor will be asked to self-screen and do not enter if you have any COVID symptoms. Please call surgeon if you need to reschedule. - A mask is optional within the hospital at this time. Patients may have clear liquids (water, carbonated beverages, clear teas, apple juice) until 3 hours prior to surgery with a maximum of 20 ounces. - No food from midnight until time of surgery and no smoking, or chewing tobacco (or any form of nicotine). No chewing gum, candy or mints. - Infants may have breast milk until 4 hours before surgery, infant formula 6 hours prior to surgery. - Children will be allowed to drink immediately following surgery.? If applicable, please bring a bottle or sippy cup to assist with drinking. Juice, water, soda, and popsicles are readily available.? For infants on formula, please bring formula the day of surgery.? Pacifiers are allowed. Take only the following medications with a SIP of water on the morning of surgery: lexapro DO NOT STOP ANY OF YOUR OTHER PRESCRIPTION MEDICATIONS PRIOR TO SURGERY EXCEPT THE FOLLOWING Hold all vitamins and supplements for 3 days per anesthesiologist. Medications to discontinue per physician N/A Date to take last dose: N/A Please no make-up, nail tongan, hairspray, perfume, deodorant, or body powder the day of surgery.? No jewelry (including any body piercings) or valuables the day of surgery, leave them at home.? Please take a shower or bath the night before, or the morning of, surgery with an antibacterial soap.? Wear comfortable, loose fitting clothing.? Children are encouraged to wear pajamas. - Jewelry must be removed prior to entering the operating room.? Rings and piercings that are not removed may be cut off. - The hospital will not accept responsibility for valuables.? - Please leave all valuables, including medications, at home the day of surgery. If you are going home after surgery, a licensed driver/merchandiser must drive you home.? - NO public transportation without another adult if you receive anesthesia. - We recommend that an adult stay with you for 24 hours following discharge. - We also recommend that you do not drive, make important decision, drink alcoholic beverages, or take any drugs that were not prescribed by your health care provider for at least 24 hours after your discharge time. For Pediatric surgeries, we recommend two adults accompany the child home. Follow any additional instructions given to you from your surgeon. Telephone instructions given to MARLA CHAVARRIA and asked if any additional questions and then verbalized understanding. Patient advised to call surgeon office or pre surgery nurse liaison [phone] if any additional questions.
[2024-07-21] VITALS (12 sets, daily range): BP systolic 115–134; BP diastolic 63–85; PULSE 44–69; RESP 14–18; TEMP 36.1–36.4; O2SAT 99–100
--- OUTSIDE RECORDS SUMMARY | 2024-07-21 00:46 | XMS_ITS | Data Portability ---
Author Organization [facility] [place] Address [address] [place] [place] [address] Assessment Encounter Date Assessment Date Assessment LastModified by Organization Details LastModified Time 06/07/2024 06/07/2024 Patient is _37__weeks . Discussed plan. Not available 06/07/2024 16:25:56 07/05/2024 07/05/2024 abstain from intercourse until tubal ligation Not available 07/05/2024 16:05:50 Plan of Treatment Reminders Order Date Submit Date Provider Last Modified By Organization Details Last Modified Time Details Appointments SURG Salpingec muna 2024 07:30A Cleve REINOSO MD Not available Not available Not available SURG POST OP 2024 11:15A Cleve REINOSO MD Not available Not available Not available Lab None recorded. Referral None recorded. Procedures None recorded. Surgeries None recorded. Imaging US, obstetric , biophysic al profile + non-stres s test 2024 025 tulio [facility] [address], [place], [address], 06/07/2024 20:09:28 US, obstetric , biophysic al profile + non-stres s test 2024 025 tulio [place], [facility] [address], [place], [address], 06/01/2024 20:48:58 non-stres s test 2024 025 [email or web address] [address], [address], [place], [address], 06/02/2024 07:10:04 Medication Orders Lexapro 10 mg tablet [address] [id number], [address], [place], [id number], 07/05/2024 15:35:06 ondansetr on 4 mg disintegr ating tablet 2024 025 [id number], [address], [place], [id number], 07/05/2024 15:35:40 Patient TargetsNo targets recorded. Patient InstructionsNo instructions recorded. Reason for Referral None Reported. Results Created Date Observation Date Name Description Value Unit Range Abnormal Flag Note LastModifiedBy Organization Detail LastModifiedTime 05/24/1905/24/2024 CULTU RE: GROUP B STREP SCREE N, REFLE X SUSCE PTIBI LITY result report SEE RESULT S BELOW Test: Cultu re: Group B Strep , Refle x Susce ptibi lity ([facility] ) Speci men Sourc e: Vagin a/Rec elyse Speci men Type: Vagin al/Re ctal Speci men Date: 2024 0958 Resul t Date: 2024 1724 Resul t Statu s: Final resul t Abnor mal: No Resul ting Lab: [facility] [address] [facility] [address] Tel: CULTU RE ----- ----- ----- --- No Group B strep isola wilver at 2 days (ronnie ctive broth enhan cemen t) Not Available [facility] (Lab) [address] [facility], [place], [address], 05/27/2024 18:27:40 03/05/20 25 07/05/2024 FREE T3 T3, free 3.26 pg/mL 2.00-4 .40 This assay is susce ptibl e to inter feren ce from high level s of bioti n which may false ly eleva te resul ts. Plejanet polanco corre late with clini zulema findi ngs inclu ding TSH and FT4 resul ts. If clini park indic ated, Free T3 by Equil rupa Solo sis LC/MS may be perfo rmed. Not Available [facility] (Lab) [address] [place], [address], 07/06/2024 06:27:58 07/06/19 25 07/05/2024 TSH TSH 2.23 uIU/m L 0.30-5 .33 Not Available [facility] (Lab) [address] [place], [address], 07/06/2024 06:27:58 07/06/19 25 07/05/2024 T4 FREE T4, free 0.74 NG/dL 0.60-1 .40 This assay is susce ptibl e to inter feren ce from high level s of bioti n which may false ly eleva te resul ts. Plejanet e corre late with clini zulema findi ngs. Not Available [facility] (Lab) [address] [facility], [place], [address], 07/06/2024 06:27:59 07/06/19 25 07/05/2024 THYRO ID ANTIB BRENDON PANEL thyroglobuli n antibody <1.0 IU/mL <=3.9 Not Available [facility] (Lab) [address] [place], [address], 07/06/2024 06:27:59 07/06/1907/05/2024 THYRO ID ANTIB BRENDON PANEL thyroperoxid ase antibodies 0.5 IU/mL 0.0-9. 0 This assay was perfo rmed using Beckm an Coult er reage nts and test kits. Value s obtai andrew with other assay metho ds or kits canno t be used inter hugo eably . Not Available [facility] (Lab) [address], [place], [address], 07/06/2024 06:27:59 05/17/19 25 05/17/2024 US, obste tric, follo w-up No observ ation record ed. [email or web address] [place] [address], [place], [address], 05/17/2024 13:09:39 05/17/19 25 05/17/2024 US, obste tric, bioph ysica l profi le + non-s tress test No observ ation record ed. [email or web address] [place] [address], [place], [address], 05/17/2024 13:09:51 05/17/19 25 05/17/2024 US, obste tric, follo w-up No observ ation record ed. [address], [place], [address], 05/19/2024 07:33:13 05/22/19 25 05/17/2024 non-s tress test No observ ation record ed. [email or web address] [place] [address], [place], [address], 05/22/2024 20:37:03 05/24/19 25 05/24/2024 US, obste tric, bioph ysica l profi le + non-s tress test No observ ation record ed. [email or web address] [place] [address], [place], [address], 05/24/2024 13:51:08 05/24/19 25 05/24/2024 US, obste tric, bioph ysica l profi le + non-s tress test No observ ation record ed. [email or web address] [address], [place], [address], 05/24/2024 12:39:56 05/24/19 25 05/24/2024 non-s tress test No observ ation record ed. [email or web address] [place] [address], [place], [address], 05/24/2024 21:13:43 05/31/19 25 05/31/2024 US, obste tric, bioph ysica l profi le + non-s tress test No observ ation record ed. [email or web address] [place] [address], [place], [address], 05/31/2024 17:11:34 05/31/19 25 05/31/2024 US, obste tric, bioph ysica l profi le + non-s tress test No observ ation record ed. [email or web address] [address], [place], [address], 06/01/2024 15:26:31 05/31/19 25 05/31/2024 non-s tress test No observ ation record ed. [email or web address] [place] [address], [place], [address], 05/31/2024 20:47:36 06/07/19 25 06/07/2024 US, obste tric, bioph ysica l profi le + non-s tress test No observ ation record ed. [email or web address] [place] [address], [place], [address], 06/07/2024 18:19:35 06/07/19 25 06/07/2024 US, obste tric, bioph ysica l profi le + non-s tress test No observ ation record ed. [email or web address] [address], [place], [address], 06/07/2024 21:22:24 06/07/19 25 05/31/2024 non-s tress test No observ ation record ed. [email or web address] [place] [address], [place], [address], 06/07/2024 18:44:33 06/07/19 25 05/24/2024 non-s tress test No observ ation record ed. [email or web address] [place] [address], [place], [address], 06/07/2024 18:49:46 06/07/1905/17/2024 US, obste tric, bioph ysica l profi le + non-s tress test No observ ation record ed. [email or web address] [place] [address], [place], [address], 06/07/2024 18:59:59 06/26/1906/04/2024 non-s tress test No observ ation record ed. [place] [address], [place], [address], 06/27/2024 15:50:11 Result Notes None recorded. Problems Name Problem SNOMED Code Status Onset Date Resolution Date Notes Provider Name and Address Organization Details Recorded Time Pregnanc y 44413569 Completed 202104/23/2022 BRANDON Vasquez null, [facility] 5 16:47:06 Hyperthy roidism in pregnanc y 13740098743 100 Completed 0.16, T4 WNL - 30 wk TSH WNL Eva Sousa null, [facility] 2 16:46:37 Maternal obesity complica ting pregnanc y, childbir th and the puerperi um, antepart um 82874716156 7 Completed prepreg BMI 35- ante testing 37w Eva bradford null, [facility] 2 16:46:37 Pregnanc y 12321187 Completed 202306/27/2024 BRANDON Vasquez joelle, [facility] 5 16:47:06 Advanced maternal age 621640421 Completed Margaret lai, [facility] 5 15:13:16 Past pregnanc y history of prematur e delivery 659637293 Completed 35 weeks - Antenata l testing at 34 per SP Margaret lai [facility] 5 15:13:16 History of hyperthy roidism 559576179 Completed last pregnanc y will check labs Margaret lai [facility] 5 15:13:16 Obesity 373483117 Completed 2023 35+; ante weekly at 37wks - Start at 34wks due to hx of PTD Margaret Ramos [facility], [facility] 5 15:13:16 Problem Notes None recorded. Procedures Surgical History Date Name Laterality Status Provider Name and Address Organization Details Recorded Time 12/01/19 24 Date of Last Pap Smear completed Margaret Ramos [facility] 12/01/2023 17:37:47 05/20/19 24 Nexplanon Removal completed EDITA Lay [address], [place], [address], [facility] 05/20/2023 13:38:23 04/01/20 22 Control Implant Insertion completed Margaret Ramos [facility] 04/01/2022 19:34:30 05/03/19 16 procedure on nose completed Margaret Ramos [facility] 10/31/2021 10:23:58 05/03/18 95 tympanostomy completed Margaret Ramos [facility] 10/31/2021 10:23:38 Imaging Results Imaging Date Name Status LastModified by Organiz ation Details LastModified Time 05/17/2024 US, obstetric, follow-up completed [email or web address] [place] [address], [place], [address], 05/17/2024 13:09:39 05/17/2024 US, obstetric, biophysical profile + non-stress test completed [email or web address] [place] [address], [place], [address], 05/17/2024 13:09:51 05/17/2024 US, obstetric, follow-up completed [email or web address] [address], [place], [address], 05/19/2024 07:33:13 05/17/2024 non-stress test completed [email or web address] [place] [address], [place], [address], 05/22/2024 20:37:03 05/24/2024 US, obstetric, biophysical profile + non-stress test completed [email or web address] [place] [address], [place], [address], 05/24/2024 13:51:08 05/24/2024 US, obstetric, biophysical profile + non-stress test completed [email or web address] [address], [place], [address], 05/24/2024 12:39:56 05/24/2024 non-stress test completed [email or web address] [place] [address], [place], [address], 05/24/2024 21:13:43 05/31/2024 US, obstetric, biophysical profile + non-stress test completed [email or web address] [place] [address], [place], [address], 05/31/2024 17:11:34 05/31/2024 US, obstetric, biophysical profile + non-stress test completed [email or web address] [address], [place], [address], 06/01/2024 15:26:31 05/31/2024 non-stress test completed [email or web address] [place] [address], [place], [address], 05/31/2024 20:47:36 06/07/2024 US, obstetric, biophysical profile + non-stress test completed [email or web address] [place] [address], [place], [address], 06/07/2024 18:19:35 06/07/2024 US, obstetric, biophysical profile + non-stress test completed [email or web address] [address], [place], [address], 06/07/2024 21:22:24 05/31/2024 non-stress test completed [email or web address] [place] [address], [place], [address], 06/07/2024 18:44:33 05/24/2024 non-stress test completed [email or web address] [place] [address], [place], [address], 06/07/2024 18:49:46 05/17/2024 US, obstetric, biophysical profile + non-stress test completed [email or web address] [place] [address], [place], [address], 06/07/2024 18:59:59 06/04/2024 non-stress test completed [address], [place], [address], 06/27/2024 15:50:11 Procedure Notes None recorded. Medical Equipment None [...] completed Not Available Not Available Not Available hydrocodone 5 mg-acetamin ophen 325 mg tablet TAKE 1 TABLET BY MOUTH EVERY 6 HOURS NEEDED 07/05 completed Not Available Not Available Not Available amoxicillin 500 mg tablet 05/10 completed Not Available Not Available Not Available ofloxacin 0.3 % ear drops INSTILL 10 DROPS TO LEFT EAR EVERY 12 HOURS FOR 14 DAYS 07/21 completed Not Available Not Available Not Available benzonatate 100 mg capsule TAKE 1 CAPSULE BY MOUTH THREE TIMES DAILY DIRECTED 07/05 completed Not Available Not Available Not Available dexamethaso ne 2 mg tablet TAKE 5 TABLETS BY MOUTH DAILY IN THE MORNING FOR 1 DAY 11/30 completed Not Available Not Available Not Available oseltamivir 75 mg capsule TAKE 1 CAPSULE BY MOUTH TWICE DAILY FOR 5 DAYS DIRECTED 07/05 completed Not Available Not Available Not Available prednisone 50 mg tablet TAKE 1 TABLET BY MOUTH DAILY 07/21 completed Not Available Not Available Not Available hydroxyzine HCl 25 mg tablet TAKE 1 TABLET BY MOUTH EVERY NIGHT 30 MINUTES BEFORE BEDTIME active Not Available Not Available No t Available ondansetron 4 mg disintegrat ing tablet DISSOLVE 1 TABLET ON THE TONGUE EVERY 8 HOURS active Not Available Not Available No t Available meclizine 25 mg chewable tablet CHEW AND SWALLOW 1 TABLET BY MOUTH THREE TIMES DAILY NEEDED FOR DIZZINESS 11/30 completed Not Available Not Available Not Available escitalopra m 10 mg tablet TAKE 1 TABLET BY MOUTH EVERY DAY active Not Available Not Available No t Available cyclobenzap rine 5 mg tablet TAKE 1 TABLET BY MOUTH THREE TIMES DAILY NEEDED FOR MUSCLE SPASM 07/05 completed Not Available Not Available Not Available [...] Updated DateTime 05/31/2024 160.02 cm 36.3 kg/m2 13496.44 g 117 mm[Hg] 79 mm[Hg] Margaret [facility] 5 20:46:16 Date Recorded Body weight Body mass index (BMI) Body height Provider Name and Address Organization Details Last Updated DateTime 06/07/2024 47385.21831 g 35.8 kg/m2 160.02 cm [facility] 06/07/2024 16:26:09 Date Recorded Body height Body mass index (BMI) Body weight Systolic blood pressure Diastolic blood pressure Provider Name and Address Organization Details Last Updated DateTime 07/05/2024 160.02 cm 33.1 kg/m2 70080.77 g 125 mm[Hg] 82 mm[Hg] [facility] 5 15:10:54 Social History Question Answer Notes LastModified by Organizat ion Details LastModified Time Tobacco Smoking Status Never Smoker [facility] 05/20/2023 09:59:12 Do You Have An Advance Directive? No [email or web address] Information not available 09/04/2021 What Is Your Level Of Alcohol Consumption? None Information not available 11/20/2021 If You Are , What Was Your Level Of Alcohol Consumption Prior To ? Occasional [email or web address] Information not available 05/20/2023 Are You Blind Or Do You Have Difficulty Seeing? No [email or web address] Information not available 09/04/2021 What Is Your Level Of Caffeine Consumption? Occasional [email or web address] Information not available 09/04/2021 How Much Tobacco Do You Chew? None [email or web address] Information not available 09/04/2021 In The 14 Days Before Symptom Onset, Have You Had Close Contact With A Laboratory-confir med COVID-19 While That Case Was Ill? No Information not available 09/04/2021 In The 14 Days Before Symptom Onset, Have You Had Close Contact With A Person Who Is Under Investigation For COVID-19 While That Person Was Ill? No [email or web address] Information not available 09/04/2021 Have You Been To An Area Known To Be High Risk For COVID-19? No [email or web address] Information not available 09/04/2021 Are You Deaf Or Do You Have Serious Difficulty Hearing? No Information not available 09/04/2021 What Type Of Diet Are You Following? REGULAR [email or web address] Information not available 09/04/2021 What Is The Highest Grade Or Level Of School You Have Completed Or The Highest Degree You Have Received? 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 No [email or web address] Information not available 09/04/2021 Have You Ever Been Counseled For Unhealthy Alcohol Use? No [email or web address] Information not available 05/20/2023 Do You Use Protection During Sex? No [email or web address] Information not available 09/04/2021 Do You Use Your Seat Belt Or Car Seat Routinely? Yes [email or web address] Information not available 09/04/2021 Do You Have Smoke And Carbon Monoxide Detectors In Your Home? Yes [email or web address] Information not available 09/04/2021 How Much Tobacco Do You Smoke? No [email or web address] Information not available 09/04/2021 Do You Feel Stressed (tense, Restless, Nervous, Or Anxious, Or Unable To Sleep At Night)? [id number] Information not available 11/20/2021 Do You Use Any Illicit Or Recreational Drugs? No [email or web address] Information not available 09/04/2021 Do You Use Sunscreen Routinely? Yes [email or web address] Information not available 09/04/2021 Has Tobacco Cessation Counseling Been Provided? No [email or web address] Information not available 05/20/2023 Have You Used IV Drugs? No Information not available 09/04/2021 Do You Or Have You Ever Used Any Other Forms Of Tobacco Or Nicotine? No [email or web address] Information not available 05/20/2023 Sex: Female Functional Status Question Answer Note LastModified by Organizat ion Details LastModified Time Do you have difficulty walking or climbing stairs? No [email or web address] Information not available 05/20/2023 Are you able to walk? YESWOREST [email or web address] Information not available 09/04/2021 Are you able to care for yourself? Yes [email or web address] Information not available 05/20/2023 Do you have difficulty dressing or bathing? No [email or web address] Information not available 05/20/2023 What is your exercise level? Occasional Information not available 11/20/2021 Mental Status None recorded. Family History Relationship Description Onset Age of this Age Resolved Age Notes LastModified by Organization Details LastModified Time Unspecified Relation Family history unknown [email or web address] Not available 2024 14:44:48 Mother Anxiety disorder [email or web address] Not available 09/04 14:41:49 Medical History Condition Response Allergies (Food, seasonal, environmental ) N Other Y Breast Cancer N Drug/Latex Allergies/Reactions N Blood [...] Kidney or Bladder Problems N Thyroid Problems Y GI Problems N Eating Disorder N Anemia [...] of Flow (days) 7 Current Control Method None Frequency of Cycle (Q days) 7 Sexually Active? Y Date of DEXA bone scan Age of first menstrual cycle 14 Date of Last Pap Smear 12/01/2023 Sexual Problems? N Desired Control Method LMP Unknown N Obstetrics History GPAL:G 2 P 1 1 0 2 Type Value Full Term 1 Premature 1 Living 2 Total 2 Past Encounters Encounter ID Performer Location Encounter Start Date Encounter Closed Date Diagnosis/Indication Diagnosis SNOMED-CT Code Diagnosis ICD10 Code Diagnosis Note [id number] Clara Rojas [place] [address],[place] [address] 09/04/2021 13:52:10 09/04/2021 14:17:16 [id number] Nereyda Alba [place] [address],[place] [address] 09/04/2021 13:54:12 09/05/2021 16:03:09 test positive 473431455 Z32.01 Risk factors addressed: Tobacco Cessation, Safe [...] preventati ve healthcare . Gynecologi c examination 97094827 Z01.419 [id number] Bessie Cleaning [place] [address],[place] [address] 10/02/2021 11:49:39 10/02/2021 12:18:15 screening 080089525 Z36.82 [id number] Clark Reinoso MD [place] [address],[place] [address] 10/02/2021 11:50:15 10/02/2021 13:38:17 Routine care 843316168 Z34.01 [id number] Dahlia Shirley CNM [place] [address],[place] [address] 10/31/2021 10:14:20 10/31/2021 10:50:11 Routine care 502667939 Z34.92 [id number] Bessie Cleaning [place] [address],[place] [address] 11/20/2021 16:33:43 11/20/2021 17:49:49 screening for malformation 263464042 Z36.3 [id number] Clark Reinoso MD [place] [address],[place] [address] 11/20/2021 16:34:37 11/20/2021 18:30:19 Routine care 005175405 Z34.01 [id number] Clark Reinoso MD [place] [address],[place] [address] 12/18/2021 16:52:36 12/18/2021 18:05:10 Routine care 669977393 Z34.01 [id number] Paola Carrasquillo MD [place] [address],[place] [address] 01/13/2022 14:31:46 01/14/2022 14:49:48 Maternal obesity complicating , childbirth and the puerperium, antepartum 3042731793 07 O99.213 Hyperthyro idism in 8592841139 9100 E05.90 Routine an tenatal care 100360681 Z34.03 [id number] [facility] [address],[place] [address] 01/30/2022 12:38:41 01/30/2022 12:59:19 Routine care 507139138 Z34.92 Hyperthyro idism in 5802000042 9100 E05.90 [id number] Dahlia Shirley CNM [place] [address],[place] [address] 02/13/2022 16:36:58 02/13/2022 17:07:17 Routine care 137356075 Z34.92 [id number] Clara Rojas [place] [address],[place] [address] 02/23/2022 17:41:52 02/24/2022 14:50:53 Uterine size for dates discrepancy 459715355 O26.849 Z3A.34 [id number] Dahlia Shirley CNM [place] [address],[place] [address] 02/25/2022 15:34:20 02/25/2022 16:24:47 Routine care 189002718 Z34.92 [id number] Margaret Richard [place] [address],[place] [address] 04/01/2022 14:33:49 04/01/2022 16:26:21 care 870517143 Z39.2 Insertion of subcutaneous contraceptive 868196855 Z30.9 Insertion of intrauterine contraceptive device 43215363 Z30.430 Screening procedure 2012 5006 Z13.9 [id number] Dahlia Shirley [facility] [address],[place] [address] 11/04/2022 11:01:52 11/04/2022 13:25:47 Gynecologic examination 85819208 Z01.419 [id number] Nereyda Kirillvipul [place] [address],[place] [address] 05/12/2022 11:42:20 05/12/2022 15:44:50 Abnormal uterine bleeding 0166602954 9100 N93.9 10 weeks post with continued bleeding. Discussed possible causes. U/S pasquale and will determine plan from there. [id number] EDITA Lay [place] [address],[place] [address] 05/20/2023 09:59:06 05/20/2023 13:56:46 Removal of subcutaneous contraceptive 652409739 Z30.46 nexplanon removed (see procedure note)preca utions reviewed, encouraged daily PNV [id number] Clara Rojas [place] [address],[place] [address] 05/13/2022 11:10:02 05/13/2022 14:53:44 Abnormal uterine bleeding 9048235770 9100 N93.9 [id number] [facility] [address],[place] [address] 05/18/2022 14:44:25 05/19/2022 17:03:36 Abnormal uterine bleeding 0263447807 [address] Dahlia would like 2 months of ocp and return for follow up ultrasound . Precaution s given to patient. She verbalized understand ing. OCP samples given. [id number] [facility] [address],[place] [address] 07/20/2022 09:34:31 07/20/2022 10:57:04 Cyst of left ovary 3150570409 7725987 N83.202 [id number] [facility] [address],[place] [address] 07/21/2022 09:24:02 07/23/2022 10:23:05 Abnormal uterine bleeding 4485377459 9100 N93.9 Bleeding has resolved. Ultrasound normal. Discussed precaution s and patient will let us know if any further bleeding or problems. [id number] [facility] [address],[place] [address] 11/02/2023 11:13:32 11/02/2023 12:39:23 screening 652259900 Z36.87 Z3A.01 [id number] Bessie Cleaning [place] [address],[place] [address] 12/01/2023 16:55:54 12/01/2023 17:24:00 [id number] [facility] [address],[place] [address] 12/01/2023 16:56:14 12/02/2023 09:45:25 Amenorrhea 71039648 N91.2 screening 2437 62210 Z36.89 Genetic in vestigation procedure 54495071 Z31.430 Gynecologi c examination 29498704 Z11.51 Z11.3 [id number] [facility] [address],[place] [address] 12/23/2023 15:32:05 12/23/2023 16:30:37 screening 171433811 Z36.82 Z3A.13 [id number] [facility] [address],[place] [address] 12/31/2023 12:32:29 12/31/2023 14:52:49 Routine care 903984138 Z34.92 continue panel Gestation period, 14 weeks 88441442 Z3A.14 [id number] [facility] [address] [address] 02/04/2024 14:52:41 02/04/2024 16:15:33 screening for malformation 261725812 Z36.3 Z3A.19 [id number] [facility] [address],[place] [address] 02/04/2024 14:53:46 02/07/2024 09:14:41 Gestation period, 20 weeks 93251754 Z3A.20 continue vitamin [id number] Dahlia Shirley [facility] [address],[place] [address] 04/05/2024 10:48:21 04/05/2024 12:07:58 Gestation period, 28 weeks 45416638 Z3A.28 Past pregn feroz history of premature labor 354005684 Z87.51 [id number] Margaret Ramos [facility] [address],[place] [address] 04/06/2024 15:10:40 04/06/2024 15:39:47 Reduced movement [id number] O36.8199 [id number] Margaret Ramos [facility] [address],[place] [address] 04/07/2024 14:41:28 04/10/2024 11:12:47 Reduced movement 218071802 O36.8199 [id number] Bessie Cleaning [facility] [address],[place] [address] 04/10/2024 12:30:32 04/10/2024 13:12:37 care: poor obstetric history [id number] O09.293 O09.523 Z3A.29 [id number] YAKOV STEIN MD [facility] [address],[place] [address] 05/10/2024 09:30:49 05/17/2024 05:45:23 Advanced maternal age 029718878 O09.523 Maternal o besity complicating , childbirth and the puerperium, antepartum 8453454635 07 O99.213 - testing at 34 weeks Past pregn feroz history of premature delivery 891870508 Z87.51 - discussed labor precaution s Gestation period, 34 weeks 82113187 Z3A.34 - continue PNV [id number] Marisa [facility] [address],[place] [address] 05/17/2024 09:35:11 05/17/2024 10:51:19 Multigravida of advanced maternal age 600505251 O09.529 O99.210 Z87.59 Z3A.34 [id number] Margaret Ramos [facility] [address],[place] [address] 05/17/2024 09:35:59 05/23/2024 03:51:30 Maternal obesity complicating , childbirth and the puerperium, antepartum 9399603752 07 O99.210 [id number] Dahlia Shirley CNM [facility] [address],[place] [address] 05/17/2024 09:36:24 05/17/2024 12:24:17 Gestation period, 34 weeks 01045756 Z3A.34 continue panel [id number] [facility] [address] [place] [address] 05/24/2024 09:34:35 05/24/2024 09:58:36 Multigravida of advanced maternal age 414592641 O09.529 O99.210 Z87.59 Z3A.35 [id number] Margaret Ramos [facility] [address],[place] [address] 05/24/2024 09:35:04 05/25/2024 09:36:34 Maternal obesity complicating , childbirth and the puerperium, antepartum 8094453370 07 O99.210 [id number] [facility] [address],[place] [address] 05/24/2024 09:35:34 05/24/2024 11:17:07 screening 077890978 Z36.85 Gestation period, 35 weeks 58706239 Z3A.35 [id number] [facility] [address],[place] [address] 05/31/2024 15:12:36 06/01/2024 10:28:08 Maternal obesity complicating , childbirth and the puerperium, antepartum 1509383369 07 O99.210 [id number] Marisa Hernandez [facility] [address],[place] [address] 05/31/2024 15:14:33 05/31/2024 16:12:17 Maternal obesity complicating , childbirth and the puerperium, antepartum 2347299100 07 O99.210 Z87.51 Z3A.36 [id number] Dahlia Shirley [facility] [address],[place] [address] 1 05/31/2024 15:15:54 06/01/2024 16:56:40 Gestation period, 36 weeks 76253604 Z3A.36 continue vitamin [id number] Bessie [facility] [address],[place] [address] 06/07/2024 15:23:04 06/07/2024 16:24:33 care: poor obstetric history 015750997 O09.293 O99.213 O99.283 [id number] [facility] [address],[place] [address] 06/07/2024 15:24:13 06/07/2024 16:30:49 Gestation period, 37 weeks 11866044 Z3A.37 cond ition affecting obstetrical care of mother 916350517 O36.90X0 [id number] Margaret Ramos [facility] [address] [address] 07/05/2024 14:44:36 07/05/2024 16:06:10 depression 39980943 F53.0 reviewed se risks and benefits, will refer to Yunior Alfredo APN for management and counseling recto Ed if any suicida; thoughts Nausea and vomiting 1692 1999 R11.2 Health Concerns Section Related Observation LastModified by Organization Detai ls LastModified Time None Recorded Concern Status LastModified by Organization Details LastModified Time None Recorded Advance Directives Directive N: Payers Encounter Date Sequence Insurance Name Policy Number Policy Kang Covered Member ID Kang Member ID Guarantor Name 05/31/2024 1 [facility]) [id number] 0003 [employer] [id number] Lacey Elba 05/31/2024 1 [facility]) [id number] 0003 Lacey Elba [id number] Lacey Elba 06/07/2024 1 [facility]) [id number] 0003 Lacey Elba [id number] [employer] 06/07/2024 1 [facility]) [id number] 0003 Lacey Elba [id number] Lacey Shelby 07/05/2024 1 [facility]) [id number] 0003 [employer] [id number] Lacey Elba Notes Date Note Type Note Provider Name and Address Organization Details Recorded Time 07/05/2024 text/html VisitReported bypatient.Quality:N Context:complicatio ns of : none; complications of labor: ; complications: hemorrhage; feeding choice: bottle; depression; poor support from partner/family; resumed menstrual bleeding no Associated Symptoms:no abnormal bleeding; no vaginal discharge; no pelvic pain; laceration well healed; no constipation; no fecal incontinence; no dysuria; no urinary incontinence; no fever; depression, no suicidal thoughts, no help from partner who is bipolar, SAHM Contraception Plan:permanent sterilization; tubal scheduled end july abstain Margaret Ramos [facility], [facility] 07/10/2024 11:40:58 OBGyn Episode Ob Episode Information Episode Created Date Number of Fetuses Patient Bloodtype Patient rh Status Prepregnancy Weight lbs Domestic Partner Domestic Partner Phone Father Name Problem Manager Status 10/03/19 22 1 O Positive 202 CLOSED Fetus Data First Name Last Name Admitted to NICU Weight (g) Sex Living Outcome Pediatric Complications Fetus ID Race Codes Race Delivery Type 2466.40 65 F true Prematur e cpap x2 minutes 69785 Vaginal Delivery Problems Problem Notes PNL WNL/NL NIPT Problem Name Start Date End Date Resolution Snomed Code Not e Hyperthyroidism in 96238666642848 0.16, T4 WNL - 30 wk TSH WNL Maternal obesity complicating , childbirth and the puerperium, antepartum 310734275594 prepr eg BMI 35- ante testing 37w [...] Weight in lbs Pre/Post Dialysis Refused Weight 199.886472285511 BP Diastolic BP Location Tested BP Systolic [...] Weight in lbs Pre/Post Dialysis Refused Weight 197.394707351437 BP Diastolic BP Location Tested BP Systolic [...] Weight in lbs Pre/Post Dialysis Refused Weight 198.572661090247 BP Diastolic BP Location Tested BP Systolic [...] Weight in lbs Pre/Post Dialysis Refused Weight 200.666151332864 BP Diastolic BP Location Tested BP Systolic [...] Weight in lbs Pre/Post Dialysis Refused Weight 202.908244799599 BP Diastolic BP Location Tested BP Systolic [...] Weight in lbs Pre/Post Dialysis Refused Weight 200.341855011384 BP Diastolic BP Location Tested BP Systolic [...] Weight in lbs Pre/Post Dialysis Refused Weight 201.631850256479 BP Diastolic BP Location Tested BP Systolic [...] Weight in lbs Pre/Post Dialysis Refused Weight 201.444152748935 BP Diastolic BP Location Tested BP Systolic [...] Weight in lbs Pre/Post Dialysis Refused Weight 185.613073338898 BP Diastolic BP Location Tested BP Systolic [...] Estim ated Date of Delivery false Thalassemia (Irish, Vietnamese, Mediterranean, Or Background): MCV < 80 false Neural Tube Defect (Meningomyelocele, Spina Bifi da, Or Anencephaly) false Congenital Heart Defect false Down Syndrome false Tristan-Sachs (eg, Synagogue, Cajun, Andorran-Ecuadorean) f alse Ines Disease false Sickle Cell Disease Or Trait () false Hemophilia Or Other Blood Disorders false Muscular Dystrophy false Cystic Fibrosis false Maunaloa's Chorea false Intellectual Disability/Autism false If Yes, [...] Domestic Partner Domestic Partner Phone Father Name Problem Manager Status 12/31/19 24 1 O Positive 212 Benjamin Iannorbert shital CLOSED Fetus Data First Name Last Name Admitted to NICU Weight (g) Sex Living Outcome Pediatric Complications Fetus ID Race Codes Race Delivery Type 3118.44 5 M Full Term 65987 Vaginal Delivery Problems Problem Notes placenta appears bilobed Problem Name Start Date End Date Resolution Snomed Code Not e Obesity 01/10/2024 966167003 35+; ante weekly at 37wks - Start at 34wks due to hx of PTD Advanced maternal age 432177786 History of hyperthyroidism 819550437 last pregnan cy will check labs Past history of premature delivery 432544507 35 wee ks - testing at 34 [...] Date Ultra Sound Latest Days Gestation 0 06/24/19 25 0 Pre-sharath Flowsheet Flowsheet Date 12/31/2023 Hidalgo Score Blood Edema Fundus Height Fundus Units Glucose Ketones Leukocytes Nitrite Labor Signs Protein Cervic Dilation Cervic Effacement Cervic Station neg none none trace Type Weight in lbs Pre/Post Dialysis Refused Weight 206.234432976683 BP Diastolic BP Location Tested BP Systolic [...] Type Weight in lbs Pre/Post Dialysis Refused 203.82686007402 BP Diastolic BP Location Tested BP Systolic BP Type 81 126 Fetus Heart Rate Present Fetus Movement Comments anatomy complete, +FM, preca utions and education f/u 4 weeks Flowsheet Date 04/05/2024 Hidalgo Score Blood Edema Fundus Height Fundus Units Glucose Ketones Leukocytes Nitrite Labor Signs Protein Cervic Dilation Cervic Effacement Cervic Station Type Weight in lbs Pre/Post Dialysis Refused 207.065535762000 BP Diastolic BP Location Tested BP Systolic [...] Weight in lbs Pre/Post Dialysis Refused Weight 207.953293331057 BP Diastolic BP Location Tested BP Systolic BP Type 78 133 Fetus Heart Rate Present Fetus Movement Comments Flowsheet Date 04/07/2024 Hidalgo Score Blood Edema Fundus Height Fundus Units Glucose Ketones Leukocytes Nitrite Labor Signs Protein Cervic Dilation Cervic Effacement Cervic Station Type Weight in lbs Pre/Post Dialysis Refused Weight 204.575765327097 BP Diastolic BP Location Tested BP Systolic [...] Type Weight in lbs Pre/Post Dialysis Refused 202.464629628750 BP Diastolic BP Location Tested BP Systolic [...] Weight in lbs Pre/Post Dialysis Refused Weight 202.231992471869 BP Diastolic BP Location Tested BP Systolic BP Type 80 117 Fetus Heart Rate Present Fetus Movement Comments Flowsheet Date 05/17/2024 Hidalgo Score Blood Edema Fundus Height Fundus Units Glucose Ketones Leukocytes Nitrite Labor Signs Protein Cervic Dilation Cervic Effacement Cervic Station trace Type Weight in lbs Pre/Post Dialysis Refused 202.468702365820 BP Diastolic BP Location Tested BP Systolic [...] Weight in lbs Pre/Post Dialysis Refused Weight 202.526095214860 BP Diastolic BP Location Tested BP Systolic BP Type 79 118 Fetus Heart Rate Present Fetus Movement Comments Flowsheet Date 05/24/2024 Hidalgo Score Blood Edema Fundus Height Fundus Units Glucose Ketones Leukocytes Nitrite Labor Signs Protein Cervic Dilation Cervic Effacement Cervic Station trace Type Weight in lbs Pre/Post Dialysis Refused Weight 202.215861342248 BP Diastolic BP Location Tested BP Systolic [...] Weight in lbs Pre/Post Dialysis Refused Weight 205.104840406333 BP Diastolic BP Location Tested BP Systolic [...] Rate Present Fetus Movement Comments +FM Bpp 8 no cntx, to ld f or labor [...] Type Weight in lbs Pre/Post Dialysis Refused 202.870674738694 BP Diastolic BP Location Tested BP Systolic BP Type Fetus Heart Rate Present Fetus Movement Comments Patient sent to labor and de delphine. Flowsheet Date 07/05/2024 Hidalgo Score Blood Edema Fundus Height Fundus Units Glucose Ketones Leukocytes Nitrite Labor Signs Protein Cervic Dilation Cervic Effacement Cervic Station Type Weight in lbs Pre/Post Dialysis Refused Weight 187.067876475073 BP Diastolic BP Location Tested BP Systolic BP Type 82 125 Fetus Heart Rate Present Fetus Movement Comments Menstrual History Last Menstrual Date Menses Monthly On Bcp Conception Prior Menses Frequency Hcg Plus Date Menarche Onset Age Delivery Information Delivery Date Delivery Type Labor Anesthesia Weeks Gestation Incision Type Labor Labor Length Hrs Delivered By Post Complications Tubal Sterilization Discharge Date Comments 5 37.4 Clark Reinoso MD Discharge Information Feeding Method Contraceptive Method Maternal HG B and HCT Levels
[2024-07-21] MEDS: ACETAMINOPHEN 500 MG TABLET 1000 MG PO (07:00)
[2024-07-21] MEDS: KETOROLAC 15 MG/ML VIAL (*BKC) IV PUSH ×2 (07:08→08:10)
[2024-07-21] MEDS: LACTATED RINGERS 1,000 ML 30 ML IV CONT ×2 (07:08→08:46)
--- NOTE | 2024-07-21 07:09 | WPDANESEPPF ---
Anes - Initial Pre Proc Eval Procedure: Operation Date: 07/21/24 07:30 Proposed Procedures p Bilateral Laparoscopic Salpingectomy - Clark Reinoso MD Date/Time: 07/21/24 07:09 Surgeon: Clark Reinoso MD Pre Op Diagnosis: desires sterilization Patient Data Age: 34 Gender: F Height: 1.6 m Weight: 83.91 kg Allergies Allergy/AdvReac Type Severity Reaction Status Date / Time No Known Allergies Allergy Verified 07/20/24 13:28 Home Medications ?Medication ?Instructions ?Recorded ?Confirmed ?Type vit no.95-ferrous 1 tablet PO DAILY 05/31/24 07/20/24 History fumarate 28 mg-folic acid 800 mcg tablet () ondansetron 4 mg disintegrating 4 mg PO Q8H #20 tabs 06/04/24 07/20/24 Rx tablet hydroxyzine HCl 25 mg tablet 25 mg PO HS 07/20/24 07/20/24 History Patient hx anesthesia problems: none Family hx anesthesia problems: none Results Review: All pre-operative results and documents have been reviewed as part of the pre-operative evaluation. [facility] Past Medical History Medical History Chorioamnionitis, delivered, current hospitalization Social History Social History Smoking status: Never smoker Substance use: never Do You Feel Safe in your Home?: Yes Lack of Transportation: No Lack of Food: Never True Current Housing: I Have Housing Concerned About Future Housing: No Difficulty Paying Gas/Electric Bills: No Difficulty Paying for Meds: No Currently Unemployed: No Education: High School Diploma/GED Difficulty w/ Childcare or Family Care: No Living arrangements: with family Spiritual care concerns: No Anes - Eval Final PreProcedure Day of Procedure 07/21/24 07:09 Patient weight: obese Heart: regular rate and rhythm Lungs: clear to auscultation Airway: Mallampati scale class II Neurological: alert and oriented Last oral intake: >/= 8 hours ASA classification: II Emergent: no Anesthetic plan: proceed Anesthesia type and monitoring: general ETT and standard monitoring Results Review: All pre-operative results and documents have been reviewed as part of the pre-operative evaluation. Informed Consent: The patient's anesthetic plan and its attendant risks and benefits were discussed with the patient/family/POA. Questions were solicited and answers provided to the satisfaction of the patient/family/POA.
[2024-07-21 07:19] LABS: BEDSIDEPREGUCG Negative (Negative)
--- NOTE | 2024-07-21 07:23 | P.HP_ITS ---
H&P: HPI History of Present Illness Date/Time: 07/21/24 07:23 Chief Complaint: female sterilization Narrative: 34-year-old female who desires female sterilization. We have agreed to perform laparoscopic bilateral salpingectomy. She understands risks, benefits, and alternatives The patient understands the details of the procedure. The procedure has been explained in detail. She understands the risks. She understands that injuries may occur that result in hospitalization, more surgery, and severe illness. She understands risk of hemorrhage and infection. She denies any chest pain or shortness of breath. She denies any nausea, vomiting, fever, chills. Review of Systems Review of Systems: All systems reviewed & are unremarkable except as noted in HPI and below Constitutional: Constitutional: Denies chills, Denies fatigue, Denies fever(s) and Denies weakness Eyes: Eyes: Denies blurry vision, Denies change in vision, Denies loss of peripheral vision, Denies loss of vision, Denies other visual disturbances and Denies eye pain ENT: Denies vertigo, Denies dizziness, Denies hearing loss, Denies mouth pain, Denies nasal obstruction, Denies neck mass and Denies neck pain Cardiovascular: Cardiovascular: Denies chest pain, Denies diaphoresis, Denies syncope, Denies leg edema and Denies dyspnea Respiratory: Respiratory: Denies chest congestion, Denies cough, Denies hemoptysis, Denies dyspnea and Denies wheezing Gastrointestinal: Gastrointestinal: Denies abdominal pain, Denies constipation, Denies diarrhea, Denies nausea and Denies vomiting Genitourinary: Genitourinary: Denies hematuria, Denies change in libido, Denies nocturia, Denies genital lesions, Denies flank pain and Denies urinary urgency Musculoskeletal: Musculoskeletal: Denies abnormal gait, Denies back pain, Denies myalgias, Denies arthralgias, Denies joint swelling, Denies muscle weakness and Denies neck pain Integumentary/Breasts: Skin/Breast: Denies swelling, Denies breast pain, Denies breast mass, Denies dry skin, Denies nipple discharge, Denies unusual bruising and Denies jaundice Neurologic: Denies Neuro-related abnormal movements, Denies Abnormal speech present, Denies abnormal gait, Denies behavioral changes, Denies confusion, Denies vertigo, Denies dizziness, Denies syncope, Denies loss of vision, Denies memory loss, Denies convulsions and Denies weakness Psychiatric: Psychiatric: Denies abnormal sleep pattern, Denies behavioral changes, Denies change in libido, Denies confusion, Denies depression, Denies anhedonia and Denies memory loss Endocrine: Endocrine: Reports no additional endocrine complaints, Denies change in libido and Denies fatigue Hematologic/Lymphatic: Hematologic/Lymphatic: Reports no additional hematologic/lymphatic complaints Allergic/Immunologic: Allergic/Immunologic: Reports no additional all ergic/immunologic complaints and Denies wheezing PMFSH Past Medical History Medical History Chorioamnionitis, delivered, current hospitalization Social History Social History Smoking status: Never smoker Substance use: never Do You Feel Safe in your Home?: Yes Lack of Transportation: No Lack of Food: Never True Current Housing: I Have Housing Concerned About Future Housing: No Difficulty Paying Gas/Electric Bills: No Difficulty Paying for Meds: No Currently Unemployed: No Education: High School Diploma/GED Difficulty w/ Childcare or Family Care: No Living arrangements: with family Spiritual care concerns: No Meds Home Medications and Allergies Home Medications ?Medication ?Instructions ?Recorded ?Confirmed ?Type vit no.95-ferrous 1 tablet PO DAILY 05/31/24 07/20/24 History fumarate 28 mg-folic acid 800 mcg tablet () ondansetron 4 mg disintegrating 4 mg PO Q8H #20 tabs 06/04/24 07/20/24 Rx tablet hydroxyzine HCl 25 mg tablet 25 mg PO HS 07/20/24 07/20/24 History Allergies Allergy/AdvReac Type Severity Reaction Status Date / Time No Known Allergies Allergy Verified 07/21/24 07:16 Vital Signs Vital Signs - 24 hr 07/21/24 07:20 Temperature 97.6 F Pulse Rate 67 Respiratory Rate 16 Blood Pressure 128/83 Pulse Oximetry 100 Oxygen Delivery Room Air Exam Const: General: cooperative, healthy appearing, comfortable and no acute distress Orientation/consciousness: oriented to person, oriented to place and oriented to time HENMT: Head: normal to inspection Ears: external ears normal Face/Nose/Sinus: Normal external nose present and normal facial exam Face and sinus: normal facial exam Eyes: General: appearance normal, both eyes and all related structures Neck: Neck: normal visual inspection, trachea midline and supple Resp: Auscultation: clear to auscultation bilaterally, no crackles, no rales, no rhonchi and no wheezes Cardio: Rate: regular rate Rhythm: regular rhythm Heart sounds: no click, no murmurs and no rubs GI: GI Palp: No abdominal tenderness, No Soft to palpation, No Tenderness to palpation present (GI) and No Palpable mass present Auscultation: normal bowel sounds Skin: General skin exam: normal color and no rashes or lesions noted Neuro: General: oriented to person, oriented to place and oriented to time Extrem: General: normal to inspection, no joint enlargement, no clubbing, cyanosis or edema, no pedal edema and no calf tenderness Psych: Appearance: grossly normal Mental Status: mental status grossly normal Speech and movement: Normal speech and movement present Assessment and Plan Assessment and plan (1) Encounter for female sterilization procedure: Code(s): Z30.2 - Encounter for sterilization Status: Acute Plan 34-year-old female who desires female sterilization. We have agreed to perform laparoscopic bilateral salpingectomy. She understands risks, benefits, and alternatives
--- NOTE | 2024-07-21 07:26 | WPDHPUPDATE1 ---
History and Physical Update Update Date/Time: 07/21/24 07:26 History and Physical has been reviewed, including an updated exam of the patient. There are NO changes in the patient's condition. Risks, benefits, and alternatives have been discussed and questions answered. Patient agrees to proceed with procedure.
--- NOTE | 2024-07-21 08:11 | P.OP_ITS ---
Procedure Note - Detailed Date of Procedure 07/21/24 Pre-op Diagnosis desires sterilization Post-op Diagnosis Same Procedure Performed Laparoscopic bilateral salpingectomy Surgeon Clark Reinoso MD Anesthesia General Indications Unwanted fertility Findings Normal pelvic anatomy Description of Procedure The patient was taken the operating room. She was prepped and draped in the dorsal lithotomy position after induction of general anesthesia. A 5 mm skin incision was made in the left upper quadrant of the abdominal skin. A 5 mm trocar was inserted the intra-abdominal cavity under direct visualization of the scope. Pneumoperitoneum was achieved. A 5 mm trocar was inserted in the left lower quadrant identical fashion. A 5 mm infraumbilical trocar was inserted in identical fashion as well. The bilateral fallopian tubes were removed. This was done by using a LigaSure cautery. The mesosalpinx adjacent to the tube was cauterized transected with LigaSure. This was initiated in the area the ovary and in a stepwise fashion moved medially to the area of the cornu of the uterus. Once there the fallopian tube was cauterized and transected. This was done in identical fashion on each side. The fallopian tubes were taken out through the left lower quadrant trocar site. The pneumoperitoneum was reduced. The trocars removed. The skin was closed with subcuticular 4 Monocryl and covered with D ermabond. She was taken to cover stable condition. Sponge lap and needle counts were correct x2. Estimated Blood Loss 5 Drains No Packing No Pathology Yes Complications No immediate complications Condition Stable Disposition PACU
[2024-07-21] MEDS: ONDANSETRON INJ 4 MG/2 ML VIAL IV PUSH (08:51)
[2024-07-21] MEDS: diphenhydrAMINE HCl INJ 50 MG/ML VIAL 12.5 MG IV PUSH (09:04)
[2024-07-21] MEDS: oxyCODONE HCL (*CRX) 5 MG TAB IR PO (10:11)
== END 2024-07-21 11:00 | disposition home or self-care (01) ==
PROVIDERS: Visit Provider Obstetrics & Gynecology
PROC: (CPT 49320; principal; 2024-07-21 07:30)
DX: Z30.2 Encounter for sterilization (principal)
CPT/HCPCS: 58661; 88302; A9270; J1100; J1200; J1885; J2003; J2250; J2405; J2704; J3010; J7120

== ENCOUNTER 2024-11-16 15:49 | Emergency (ER) | payer OTHER, SELFPAY ==
--- NOTE | ~2024-11-16 | CT_ITS ---
EXAMINATION: CT lumbar spine wo con DATE: 11/16/2024 16:21 INDICATION: fall . TECHNIQUE: Computed tomography (CT) of the lumbar spine was performed without intravenous contrast. A utomated exposure control and iterative reconstruction technique were employed. The dose-length produ ct was 884.94 mGy-cm. COMPARISON: None. FINDINGS: 5 nonrib-bearing lumbar-type vertebral bodies. Pedicles intact. 2 mm anterolisthesis at L4- 5 secondary to bilateral pars defects. Vertebral body heights preserved. Mild degenerative disc disea se at L3-4 and L5-S1. Moderate degenerative disc disease at L4-5. Mild facet arthropathy at L3-4 thro ugh L5-S1. No severe central canal or neural foraminal narrowing. Mild degenerative change in the rig ht SI joint. IMPRESSION: No acute fracture or traumatic malalignment in the lumbar spine. Reviewed, dictated and finalized at location K.
[2024-11-16 15:50] VITALS: BP 137/62; PULSE 66; RESP 20; TEMP 36.2; O2SAT 100
--- OUTSIDE RECORDS SUMMARY | 2024-11-16 15:53 | XMS_ITS | Data Portability ---
Author Organization [facility] Address [address] [place] [place] [place] [address] Assessment Encounter Date Assessment Date Assessment LastModified by Organization Details LastModified Time 06/07/2024 06/07/2024 Patient is _37__weeks . Discussed plan. Not available 06/07/2024 16:25:56 07/05/2024 07/05/2024 abstain from intercourse until tubal ligation Not available 07/05/2024 16:05:50 Plan of Treatment Reminders Order Date Submit Date Provider Last Modified By Organization Details Last Modified Time Details Appointments None recorded. Lab None recorded. Referral None recorded. Procedures None recorded. Surgeries None recorded. Imaging US, obstetric, biophysical profile + non-stress test 2024 025 [email or web address] [facility], [address], [place], [address], 20:09:28 Medication Orders Lexapro 10 mg tablet 2024 025 [email or web address] [id number] [facility] #[id number], [address], [id number], 15:35:06 ondansetron 4 mg disintegrat ing tablet 2024 025 HAIDER [id number], [address] [place], [place], [id number], 15:35:40 Patient TargetsNo targets recorded. Patient InstructionsNo [...] t Abnor mal: No Resul ting Lab: [facility] [address] [facility] [address] Tel: CULTU RE ----- ----- ----- --- No Group B strep isola wilver at 2 days (ronnie ctive broth enhan cemen t) Not Available [facility] (Lab) [address] [facility] [address], [place], [address], 05/27/2024 18:27:40 07/06/19 25 07/05/2024 FREE T3 T3, free 3.26 pg/mL 2.00-4 .40 This assay is susce ptibl e to inter feren ce from high level s of bioti n which may false ly eleva te resul ts. Pleas e corre late with clini zulema findi ngs inclu ding TSH and FT4 resul ts. If clini park indic ated, Free T3 by Equil rupa Solo sis LC/MS may be perfo rmed. Not Available [facility] (Lab) [address] [place], [address], 07/06/2024 06:27:58 07/06/19 25 07/05/2024 TSH TSH 2.23 uIU/m L 0.30-5 .33 Not Available [facility] (Lab) [address] [place], [address], 07/06/2024 06:27:58 07/06/19 25 07/05/2024 T4 FREE T4, free 0.74 NG/dL 0.60-1 .40 This assay is susce ptibl e to inter feren ce from high level s of bioti n which may false ly eleva te resul ts. Pleas e corre late with clini zulema findi ngs. Not Available [facility] (Lab) [address], [place], [address], 07/06/2024 06:27:59 07/06/19 25 07/05/2024 THYRO ID ANTIB BRENDON PANEL thyroglobuli n antibody <1.0 IU/mL <=3.9 Not Available [facility] (Lab) [address], [place], [address], 07/06/2024 06:27:59 07/06/1907/05/2024 THYRO ID ANTIB BRENDON PANEL thyroperoxid ase antibodies 0.5 IU/mL 0.0-9. 0 This assay was perfo rmed using Beckm an Coult er reage nts and test kits. Value s obtai andrew with other assay metho ds or kits canno t be used inter hugo eably . Not Available [facility] (Lab) [address], [place], [address], 07/06/2024 06:27:59 05/17/1905/17/2024 US, obste tric, follo w-up No observ ation record ed. [email or web address] [facility] [address], [place], [address], 05/17/2024 13:09:39 05/17/19 25 05/17/2024 US, obste tric, bioph ysica l profi le + non-s tress test No observ ation record ed. [email or web address] [facility] [address], [place], [address], 05/17/2024 13:09:51 05/17/19 25 05/17/2024 US, obste tric, follo w-up No observ ation record ed. [email or web address], [place], [address], 05/19/2024 07:33:13 05/22/19 25 05/17/2024 non-s tress test No observ ation record ed. [email or web address] [facility] [address], [place], [address], 05/22/2024 20:37:03 05/24/19 25 05/24/2024 US, obste tric, bioph ysica l profi le + non-s tress test No observ ation record ed. [email or web address] [facility] [address], [place], [address], 05/24/2024 13:51:08 05/24/19 25 05/24/2024 US, obste tric, bioph ysica l profi le + non-s tress test No observ ation record ed. [email or web address] [address], [place], [address], 05/24/2024 12:39:56 05/24/19 25 05/24/2024 non-s tress test No observ ation record ed. [facility] [address], [place], [address], 05/24/2024 21:13:43 05/31/19 25 05/31/2024 US, obste tric, bioph ysica l profi le + non-s tress test No observ ation record ed. [email or web address] [facility] [address], [place], [address], 05/31/2024 17:11:34 05/31/19 25 05/31/2024 US, obste tric, bioph ysica l profi le + non-s tress test No observ ation record ed. [email or web address] [address], [place], [address], 06/01/2024 15:26:31 05/31/19 25 05/31/2024 non-s tress test No observ ation record ed. [email or web address] [facility] [address], [place], [address], 05/31/2024 20:47:36 06/07/19 25 06/07/2024 US, obste tric, bioph ysica l profi le + non-s tress test No observ ation record ed. [email or web address] [facility] [address], [place], [address], 06/07/2024 18:19:35 06/07/19 25 06/07/2024 US, obste tric, bioph ysica l profi le + non-s tress test No observ ation record ed. [email or web address] [address], [place], [address], 06/07/2024 21:22:24 06/07/19 25 05/31/2024 non-s tress test No observ ation record ed. [email or web address] [facility] [address], [place], [address], 06/07/2024 18:44:33 06/07/19 25 05/24/2024 non-s tress test No observ ation record ed. [email or web address] [facility] [address], [place], [address], 06/07/2024 18:49:46 06/07/19 25 05/17/2024 US, obste tric, bioph ysica l profi le + non-s tress test No observ ation record ed. [email or web address] [facility] [address], [place], [address], 06/07/2024 18:59:59 06/26/1906/04/2024 non-s tress test No observ ation record ed. [address], [place], [address], 06/27/2024 15:50:11 Result Notes None recorded. Problems Name Problem SNOMED Code Status Onset Date Resolution Date Notes Provider Name and Address Organization Details Recorded Time Hyperthy roidism in pregnanc y 88732603028 100 Completed 0.16, T4 WNL - 30 wk TSH WNL Eva Sousa null, [facility] 2 16:46:37 Maternal obesity complica ting pregnanc y, childbir th and the puerperi um, antepart um 59857062485 7 Completed prepreg BMI 35- ante testing 37w Eva bradford null, [facility] 2 16:46:37 Advanced maternal age 466783142 Completed Margaret lai, [facility] 5 15:13:16 Past pregnanc y history of prematur e delivery 202720177 Completed 35 weeks - Antenata l testing at 34 per SP Margaret lai, [facility] 5 15:13:16 History of hyperthy roidism 592096866 Completed last pregnanc y will check labs Margaret lai, [facility] 5 15:13:16 Pregnanc y 17256469 Completed 202104/23/2022 BRANDON lai [facility] 5 16:47:06 Pregnanc y 37667286 Completed 202306/27/2024 BRANDON lai, [facility] 5 16:47:06 Obesity 686594999 Completed 2023 35+; ante weekly at 37wks - Start at 34wks due to hx of PTD Margaret lai, [facility] 15:13:16 Problem Notes None recorded. Procedures Surgical History Date Name Laterality Status Provider Name and Address Organization Details Recorded Time 07/22/19 25 SALPINGECTOMY, LAPAROSCOPIC (SURG) completed Mariah Velez [facility] 07/21/2024 11:52:40 12/01/19 24 Date of Last Pap Smear completed Margaret Ramos [facility] 12/01/2023 17:37:47 05/20/19 24 Nexplanon Removal completed EDITA Lay [address], [place], [address], [facility] 05/20/2023 13:38:23 04/01/20 22 Control Implant Insertion completed Margaret Ramos [facility] 04/01/2022 19:34:30 05/03/19 16 procedure on nose completed Margaretcaitie Ramos [facility] 10/31/2021 10:23:58 05/03/18 95 tympanostomy completed Margaret Ramos [facility] 10/31/2021 10:23:38 Imaging Results None recorded. [...] hydrocodone 5 mg-acetamin ophen 325 mg tablet 2024 active Not Available Not Available Not Avai lable amoxicillin 500 mg tablet 05/10 completed Not [...] MOUTH EVERY NIGHT 30 MINUTES BEFORE BEDTIME 2024 active Not Available Not Available Not Avai lable ondansetron 4 mg disintegrat ing tablet DISSOLVE [...] Address Organization Details Last Updated DateTime 06/07/2024 07357.51602 g 35.8 kg/m2 160.02 cm Margaret Ramos [facility] 06/07/2024 16:26:09 Date Recorded Body height Body mass index (BMI) Body weight Systolic And Diastolic Provider Name and Address Organization Details Last Updated DateTime 07/05/2024 160.02 cm 33.1 kg/m2 67344.77 g 125/82 mm[Hg] Margaret Ramos [facility] 07/05/2024 15:10:54 Date Recorded Body height Body mass index (BMI) Body weight Systolic And Diastolic Provider Name and Address Organization Details Last Updated DateTime 07/28/2024 160.02 cm 32.8 kg/m2 25926.59 g 127/83 mm[Hg] Kathe Ovidio [facility] 07/28/2024 12:52:13 Social History Question Answer Notes LastModified by Organizat ion Details LastModified Time Tobacco Smoking Status Never Smoker Brandee Jiménez joelle, [facility] 05/20/2023 09:59:12 Do You Have An Advance Directive? No [email or web address] Information n ot available 09/04/2021 If You Are , What Was Your Level Of Alcohol Consumption Prior To ? Occasional [email or web address] Information not available 05/20/2023 Are You Blind Or Do You Have Difficulty Seeing? No Information n ot available 09/04/2021 What Is Your Level Of Caffeine Consumption? Occasional Information not available 09/04/2021 How Much Tobacco Do You Chew? None [email or web address] Information not available 09/04/2021 In The 14 Days Before Symptom Onset, Have You Had Close Contact With A Laboratory-confirm ed COVID-19 While That Case Was Ill? No [email or web address] Information n ot available 09/04/2021 In The 14 Days Before Symptom Onset, Have You Had Close Contact With A Person Who Is Under Investigation For COVID-19 While That Person Was Ill? No Information not available 09/04/2021 Have You Been To An Area Known To Be High Risk For COVID-19? No [email or web address] Information not available 09/04/2021 Are You Deaf Or Do You Have Serious Difficulty Hearing? No [email or web address] Information not available 09/04/2021 What Type Of Diet Are You Following? REGULAR Information n ot available 09/04/2021 What Is The Highest Grade Or Level Of School You Have Completed Or The Highest Degree You Have Received? [id number] [email or web address] Information not available 09/04/2021 Are There Any Guns Present In Your Home? No [email or web address] Information not available 09/04/2021 Have You Ever Been Counseled For Unhealthy Alcohol Use? No [email or web address] Information not available 05/20/2023 Do You Use Protection During Sex? No [email or web address] Information not available 09/04/2021 Do You Use Your Seat Belt Or Car Seat Routinely? Yes [email or web address] Information not available 09/04/2021 Do You Have Smoke And Carbon Monoxide Detectors In Your Home? Yes [email or web address] Information not available 09/04/2021 How Much Tobacco Do You Smoke? No [email or web address] Information not available 09/04/2021 Do You Use Sunscreen Routinely? Yes [email or web address] Information not available 09/04/2021 Has Tobacco Cessation Counseling Been Provided? No [email or web address] Information not available 05/20/2023 Have You Used IV Drugs? No [email or web address] Information not available 09/04/2021 Do You Have Difficulty Walking Or Climbing Stairs? No [email or web address] Information not available 05/20/2023 Sex: Female Functional Status Question Answer Note LastModified by Organizat ion Details LastModified Time Do you use any illicit or recreational drugs? No [email or web address] Information not available 09/04/2021 Do you or have you ever used any other forms of tobacco or nicotine? No [email or web address] Information not available 05/20/2023 What is your level of alcohol consumption? None Information not available 11/20/2021 Are you able to walk? YESWOREST [email or web address] Information not available 09/04/2021 Are you able to care for yourself? Yes [email or web address] Information not available 05/20/2023 What is your occupation? Home [employer] [email or web address] Information not available 09/04/2021 Do you have difficulty dressing or bathing? No [email or web address] Information not available 05/20/2023 What is your exercise level? Occasional Information not available 11/20/2021 Mental Status Question Answer Note LastModified by Organization D etails LastModified Time Do you feel stressed (tense, restless, nervous, or anxious, or unable to sleep at night)? [id number] [email or web address] Information not available 11/20/2021 Family History Relationship Description Onset Age of this Age Resolved Age Notes LastModified by Organization Details LastModified Time Unspecified Relation Family history unknown [email or web address] Not available 2024 12:12:37 Mother Anxiety disorder [email or web address] Not available 09/04 14:41:49 Medical History Condition Response Allergies (Food, seasonal, environmental ) N Other Y Drug/Latex Allergies/Reactions N Breast Cancer N Blood Transfusion N Lung Disease N Dermatologic Disorders N Defects or Inherited Disease N Breast Problem N Gestational Diabetes N Hematologic disorders N Anesthesia Complications N History of STI N Deep Vein Thrombosis N Polycystic ovary syndrome N Anxiety Disorder N Autoimmune disease N Arthritis N Polyps N Infertility N History of abnormal pap N Acid Reflux (GERD) N Cancer N Varicosities N Stroke N Neurologic/Epilepsy N Endometriosis N High Cholesterol N Headaches N Fibromyalgia N Kidney Disease N Heart Problems N Thyroid Problems Y Kidney or Bladder Problems N GI Problems [...] History Statement/Question Response Date of Last Mammogram Flow Heavy Date of LMP 07/22/2024 On BCP's at Conception? N N Was last menstrual period normal N STIs/STDs N HPV Vaccine N Duration of Flow (days) 7 Current Control Method Tubal Ligat ion Frequency of Cycle (Q days) 28 Sexually Active? Y Menses Monthly Y Date of DEXA bone scan Age of first menstrual cycle 14 Date of Last Pap Smear 12/01/2023 Sexual Problems? N Desired Control Method LMP Approximate N Obstetrics History GPAL:G 2 P 1 1 0 2 Type Value Full Term 1 Premature 1 Living 2 Total 2 Past Encounters Encounter ID Performer Location Encounter Start Date Encounter Closed Date Diagnosis/Indication Diagnosis SNOMED-CT Code Diagnosis ICD10 Code Diagnosis Note [id number] Clark Reinoso MD [facility] [address] [address] 09/04/2021 13:52:10 09/04/2021 14:17:16 [id number] Nereyda Alba [facility] [address],[place] [address] 09/04/2021 13:54:12 09/05/2021 16:03:09 test positive 645026347 Z32.01 Risk factors addressed: Tobacco Cessation, Safe [...] preventati ve healthcare . Gynecologi c examination 62419745 Z01.419 [id number] Clark Reinoso MD [facility] [address],[place] [address] 10/02/2021 11:49:39 10/02/2021 12:18:15 screening 065476583 Z36.82 [id number] Clark Reinoso MD [facility] [address],[place] [address] 10/02/2021 11:50:15 10/02/2021 13:38:17 Routine care 875464026 Z34.01 [id number] [facility] [address],[place] [address] 10/31/2021 10:14:20 10/31/2021 10:50:11 Routine care 712600259 Z34.92 [id number] Clark Reinoso MD [facility] [address],[place] [address] 11/20/2021 16:33:43 11/20/2021 17:49:49 screening for malformation 550946867 Z36.3 [id number] Clark Reinoso MD [facility] [address],[place] [address] 11/20/2021 16:34:37 11/20/2021 18:30:19 Routine care 618994547 Z34.01 [id number] Clark Reinoso MD [facility] [address],[place] [address] 12/18/2021 16:52:36 12/18/2021 18:05:10 Routine care 666573313 Z34.01 [id number] Paola Carrasquillo MD [facility] [address],[place] [address] 01/13/2022 14:31:46 01/14/2022 14:49:48 Maternal obesity complicating , childbirth and the puerperium, antepartum 2300088489 07 O99.213 Hyperthyro idism in 0467083042 9100 E05.90 Routine an tenatal care 006470781 Z34.03 [id number] [facility] [address],[place] [address] 01/30/2022 12:38:41 01/30/2022 12:59:19 Routine care 443844697 Z34.92 Hyperthyro idism in 2828044714 9100 E05.90 [id number] Dahlia Shirley CNM [facility] [address],[place] [address] 02/13/2022 16:36:58 02/13/2022 17:07:17 Routine care 035030718 Z34.92 [id number] Clark Reinoso MD [facility] [address] [place] [address] 02/23/2022 17:41:52 02/24/2022 14:50:53 Uterine size for dates discrepancy 813257290 O26.849 Z3A.34 [id number] Dahlia Shirley CNM [facility] [address],[place] [address] 02/25/2022 15:34:20 02/25/2022 16:24:47 Routine care 978309567 Z34.92 [id number] [facility] [address],[place] [address] 04/01/2022 14:33:49 04/01/2022 16:26:21 care 474143730 Z39.2 Implantati on of subcutaneous contraceptive 955713447 Z30.9 Insertion of intrauterine contraceptive device 58138081 Z30.430 Screening procedure 2012 5006 Z13.9 [id number] [facility] [address],[place] [address] 11/04/2022 11:01:52 11/04/2022 13:25:47 Gynecologic examination 56968345 Z01.419 [id number] Nereyda Alba CNM [facility] [address],[place] [address] 05/12/2022 11:42:20 05/12/2022 15:44:50 Abnormal uterine bleeding 2738515557 9100 N93.9 10 weeks post with continued bleeding. Discussed possible causes. U/S pasquale and will determine plan from there. [id number] EDITA Lay [facility] [address],[place] [address] 05/20/2023 09:59:06 05/20/2023 13:56:46 Removal of subcutaneous contraceptive 211310074 Z30.46 nexplanon removed (see procedure note)preca utions reviewed, encouraged daily PNV [id number] Clark Reinoso MD [facility] [address],[place] [address] 05/13/2022 11:10:02 05/13/2022 14:53:44 Abnormal uterine bleeding 5893982127 9100 N93.9 [id number] Nereyda Alba CNM [facility] [address],[place] [address] 05/18/2022 14:44:25 05/19/2022 17:03:36 Abnormal uterine bleeding 7752985124 [address] Dahlia would like 2 months of ocp and return for follow up ultrasound . Precaution s given to patient. She verbalized understand ing. OCP samples given. [id number] MD Sae Arrieta [address],[place] [address] 07/20/2022 09:34:31 07/20/2022 10:57:04 Cyst of left ovary 4316506295 7294618 N83.202 [id number] Nereyda Alba [facility] [address],[place] [address] 07/21/2022 09:24:02 07/23/2022 10:23:05 Abnormal uterine bleeding 0468612324 9100 N93.9 Bleeding has resolved. Ultrasound normal. Discussed precaution s and patient will let us know if any further bleeding or problems. [id number] Clark Reinoso MD [facility] [address],[place] [address] 11/02/2023 11:13:32 11/02/2023 12:39:23 screening 955612962 Z36.87 Z3A.01 [id number] Clark Reinoso MD [facility] [address],[place] [address] 12/01/2023 16:55:54 12/01/2023 17:24:00 [id number] Dahlia Jayme [facility] [address],[place] [address] 12/01/2023 16:56:14 12/02/2023 09:45:25 Amenorrhea 26532725 N91.2 screening 2437 37853 Z36.89 Genetic in vestigation procedure 19671562 Z31.430 Gynecologi c examination 94104278 Z11.51 Z11.3 [id number] Clark Reinoso MD [facility] [address],[place] [address] 12/23/2023 15:32:05 12/23/2023 16:30:37 screening 634100196 Z36.82 Z3A.13 [id number] [facility] [address],[place] [address] 12/31/2023 12:32:29 12/31/2023 14:52:49 Routine care 374893063 Z34.92 continue panel Gestation period, 14 weeks 28507401 Z3A.14 [id number] Clark Reinoso MD [facility] [address],[place] [address] 02/04/2024 14:52:41 02/04/2024 16:15:33 screening for malformation 361235712 Z36.3 Z3A.19 [id number] Dahlia Shirley [facility] [address],[place] [address] 02/04/2024 14:53:46 02/07/2024 09:14:41 Gestation period, 20 weeks 98115473 Z3A.20 continue vitamin [id number] Dahlia Shirley [place] [id number] [address] 04/05/2024 10:48:21 04/05/2024 12:07:58 Gestation period, 28 weeks 61002011 Z3A.28 Past pregn feroz history of premature labor 572785001 Z87.51 [id number] Dahlia Shirley [facility] [address],[place] [address] 04/06/2024 15:10:40 04/06/2024 15:39:47 Reduced movement 644193980 O36.8199 [id number] [facility] [address] [place] [address] 04/07/2024 14:41:28 04/10/2024 11:12:47 Reduced movement 166105015 O36.8199 [id number] Clark Reinoso MD [facility] [address],[place] [address] 04/10/2024 12:30:32 04/10/2024 13:12:37 care: poor obstetric history 280067730 O09.293 O09.523 Z3A.29 [id number] YAKOV STEIN MD [facility] [address],[place] [address] 05/10/2024 09:30:49 05/17/2024 05:45:23 Advanced maternal age 691280194 O09.523 Maternal o besity complicating , childbirth and the puerperium, antepartum 8055618744 07 O99.213 - testing at 34 weeks Past pregn feroz history of premature delivery 241342438 Z87.51 - discussed labor precaution s Gestation period, 34 weeks 71234689 Z3A.34 - continue PNV [id number] Clark Reinoso MD [facility] [address],[place] [address] 05/17/2024 09:35:11 05/17/2024 10:51:19 Multigravida of advanced maternal age 046005749 O09.529 O99.210 Z87.59 Z3A.34 [id number] Clark Reinoso MD [facility] [address],[place] [address] 05/17/2024 09:35:59 05/23/2024 03:51:30 Maternal obesity complicating , childbirth and the puerperium, antepartum 4444089665 07 O99.210 [id number] [facility] [address],[place] [address] 05/17/2024 09:36:24 05/17/2024 12:24:17 Gestation period, 34 weeks 68080627 Z3A.34 continue panel [id number] Clark Reinoso MD [facility] [address],[place] [address] 05/24/2024 09:34:35 05/24/2024 09:58:36 Multigravida of advanced maternal age 558313134 O09.529 O99.210 Z87.59 Z3A.35 [id number] Dahlia Shirley CNM [facility] [address],[place] [address] 05/24/2024 09:35:04 05/25/2024 09:36:34 Maternal obesity complicating , childbirth and the puerperium, antepartum 3436020490 07 O99.210 [id number] [facility] [address],[place] [address] 05/24/2024 09:35:34 05/24/2024 11:17:07 screening 255539853 Z36.85 Gestation period, 35 weeks 69440527 Z3A.35 [id number] [facility] [address],[place] [address] 05/31/2024 15:12:36 06/01/2024 10:28:08 Maternal obesity complicating , childbirth and the puerperium, antepartum 1523779956 07 O99.210 [id number] Clark Reinoso MD [facility] [address],[place] [address] 05/31/2024 15:14:33 05/31/2024 16:12:17 Maternal obesity complicating , childbirth and the puerperium, antepartum 5736920393 07 O99.210 Z87.51 Z3A.36 [id number] [facility] [address],[place] [address] 05/31/2024 15:15:54 06/01/2024 16:56:40 Gestation period, 36 weeks 52418254 Z3A.36 continue vitamin [id number] Clark Reinoso MD [facility] [address],[place] [address] 06/07/2024 15:23:04 06/07/2024 16:24:33 care: poor obstetric history 360638877 O09.293 O99.213 O99.283 [id number] [facility] [address],[place] [address] 06/07/2024 15:24:13 06/07/2024 16:30:49 Gestation period, 37 weeks 21353039 Z3A.37 cond ition affecting obstetrical care of mother 879454532 O36.90X0 [id number] Dahlia Shirley CNM [facility] [address] [address] 07/05/2024 14:44:36 07/05/2024 16:06:10 depression 52417861 F53.0 reviewed se risks and benefits, will refer to Yunior Alfredo APN for management and counseling recto Ed if any suicida; thoughts Nausea and vomiting 1693 1999 R11.2 [id number] Clark Reinoso MD [facility] [address] [address] 07/21/2024 08:46:34 07/29/2024 03:51:43 [id number] Clark Reinoso MD [facility] [address] [address] 07/28/2024 12:12:34 07/31/2024 09:03:42 Postoperative care [id number] Z48.89 This patient is a 34-year-ol d female who presents for postop follow-up. She is 1 week postop from a laparoscop ic bilatera Salpingect gudelia. Her incisions are clean dry and intact. She has no complaints . She is recovering normally. She will follow up as needed. Health Concerns Section Related Observation LastModified by Organization Detai ls LastModified Time None Recorded Concern Status LastModified by Organization Details LastModified Time None Recorded Advance Directives Directive N: Payers Insurance Date Sequence Insurance Name Policy Number Policy Kang Covered Member ID Kang Member ID Guarantor Name 07/27/2024 2 [facility] [id number] [id number] 07/27/2024 2 [facility] [id number] 03 Lacey Thibodeaux [id number] [facility] 07/27/2024 1 [place] Lacey Morelia [id number] [facility] 07/27/2024 1 [facility] (MEDICAID HMO) [id number] 03 Lacey Thibodeaux [id number] Lacey Arreola 09/02/2021 1 *SELF PAY* Veronika Arreola 07/27/2024 [id number] Lacey Thibodeaux [id number] Lacey Arreola 07/27/2024 1 [facility] [place] [facility] Lacey Thibodeaux [id number] Lacey Arreola 07/31/2024 1 [facility] (O) [id number] Lacey Arreola [id number] Lacey Arreola 07/27/2024 1 [place] [facility] Lacey Thibodeaux [id number] Lacey Arreola Notes Date Note Type Note Provider Name [...] SAHM Contraception Plan:permanent sterilization; tubal scheduled end of july abstain Margaret lai, [facility] 07/10/2024 11:40:58 07/28/2024 text/html This patient is a 34-year-old female who presents for postop follow-up. She is 1 week postop from a laparoscopic bilatera Salpingectomy. Her incisions are clean dry and intact. She has no complaints. She is recovering normally. She will follow up as needed. Clark Reinoso MD [address], [place], [address], [facility] 07/30/2024 22:19:58 OBGyn Episode Ob Episode Information Episode Created Date Number of Fetuses Patient Bloodtype Patient rh Status Prepregnancy Weight lbs Domestic Partner Domestic Partner Phone Father Name Hairspring Ii Inspector Status 10/03/19 22 1 O Positive 202 CLOSED Fetus Data First Name Last Name Admitted to NICU Weight (g) Sex Living Outcome Pediatric Complications Fetus ID Race Codes Race Delivery Type 2466.40 65 F true Prematur e cpap x2 minutes 69647 Vaginal Delivery Problems Problem Notes PNL WNL/NL NIPT Problem Name Start Date End Date Resolution Snomed Code Not e Hyperthyroidism in [id number] 0.16, T4 WNL - 30 wk TSH WNL Maternal obesity complicating , childbirth and the puerperium, antepartum [id number] prepr eg BMI 35- ante testing 37w [...] Weight in lbs Pre/Post Dialysis Refused Weight 199.804677930149 BP Diastolic BP Location Tested BP Systolic [...] Weight in lbs Pre/Post Dialysis Refused Weight 197.105637224324 BP Diastolic BP Location Tested BP Systolic [...] Weight in lbs Pre/Post Dialysis Refused Weight 198.615069788828 BP Diastolic BP Location Tested BP Systolic [...] Weight in lbs Pre/Post Dialysis Refused Weight 200.605382920226 BP Diastolic BP Location Tested BP Systolic [...] Weight in lbs Pre/Post Dialysis Refused Weight 202.250087023286 BP Diastolic BP Location Tested BP Systolic [...] Weight in lbs Pre/Post Dialysis Refused Weight 200.701641325576 BP Diastolic BP Location Tested BP Systolic [...] Weight in lbs Pre/Post Dialysis Refused Weight 201.931144993722 BP Diastolic BP Location Tested BP Systolic [...] Weight in lbs Pre/Post Dialysis Refused Weight 201.979086927386 BP Diastolic BP Location Tested BP Systolic [...] Weight in lbs Pre/Post Dialysis Refused Weight 185.047210166156 BP Diastolic BP Location Tested BP Systolic [...] Estim ated Date of Delivery false Thalassemia (Bulgarian, Maori, Mediterranean, Or Background): MCV < 80 false Neural Tube Defect (Meningomyelocele, Spina Bifi da, Or Anencephaly) false Congenital Heart Defect false Down Syndrome false Tristan-Sachs (eg, Yazdanism, Cajun, Ivorian-Chickasaw) f alse Ines Disease false Sickle Cell Disease Or Trait () false Hemophilia Or Other Blood Disorders false Muscular Dystrophy false Cystic Fibrosis false Gardenia's Chorea false Intellectual Disability/Autism false If Yes, [...] Domestic Partner Domestic Partner Phone Father Name Hairspring Ii Inspector Status 12/31/19 24 1 O Positive 212 Benjamin Maxwell n CLOSED Fetus Data First Name Last Name Admitted to NICU Weight (g) Sex Living Outcome Pediatric Complications Fetus ID Race Codes Race Delivery Type 3118.44 5 M Full Term 97443 Vaginal Delivery Problems Problem Notes placenta appears bilobed Problem Name Start Date End Date Resolution Snomed Code Not e Obesity 01/10/2024 [id number] 35+; ante weekly at 37wks - Start at 34wks due to hx of PTD Advanced maternal age [id number] History of hyperthyroidism [id number] last pregnan cy will check labs Past history of premature delivery [id number] wee ks - testing at 34 [...] Latest Days Gestation 0 06/24/19 25 0 Pre- Flowsheet Flowsheet Date 12/31/2023 Hidalgo Score Blood Edema Fundus Height Fundus Units Glucose Ketones Leukocytes Nitrite Labor Signs Protein Cervic Dilation Cervic Effacement Cervic Station neg none none trace Type Weight in lbs Pre/Post Dialysis Refused Weight 206.624042857749 BP Diastolic BP Location Tested BP Systolic [...] Type Weight in lbs Pre/Post Dialysis Refused 203.85587453600 BP Diastolic BP Location Tested BP Systolic BP Type 81 126 Fetus Heart Rate Present Fetus Movement Comments anatomy complete, +FM, preca utions and education f/u 4 weeks Flowsheet Date 04/05/2024 Hidalgo Score Blood Edema Fundus Height Fundus Units Glucose Ketones Leukocytes Nitrite Labor Signs Protein Cervic Dilation Cervic Effacement Cervic Station Type Weight in lbs Pre/Post Dialysis Refused 207.279699072732 BP Diastolic BP Location Tested BP Systolic [...] Weight in lbs Pre/Post Dialysis Refused Weight 207.581076605815 BP Diastolic BP Location Tested BP Systolic BP Type 78 133 Fetus Heart Rate Present Fetus Movement Comments Flowsheet Date 04/07/2024 Hidalgo Score Blood Edema Fundus Height Fundus Units Glucose Ketones Leukocytes Nitrite Labor Signs Protein Cervic Dilation Cervic Effacement Cervic Station Type Weight in lbs Pre/Post Dialysis Refused Weight 204.255737394648 BP Diastolic BP Location Tested BP Systolic [...] Type Weight in lbs Pre/Post Dialysis Refused 202.937901555569 BP Diastolic BP Location Tested BP Systolic [...] Weight in lbs Pre/Post Dialysis Refused Weight 202.148956687399 BP Diastolic BP Location Tested BP Systolic BP Type 80 117 Fetus Heart Rate Present Fetus Movement Comments Flowsheet Date 05/17/2024 Hidalgo Score Blood Edema Fundus Height Fundus Units Glucose Ketones Leukocytes Nitrite Labor Signs Protein Cervic Dilation Cervic Effacement Cervic Station trace Type Weight in lbs Pre/Post Dialysis Refused 202.406667573885 BP Diastolic BP Location Tested BP Systolic [...] Weight in lbs Pre/Post Dialysis Refused Weight 202.585548682071 BP Diastolic BP Location Tested BP Systolic BP Type 79 118 Fetus Heart Rate Present Fetus Movement Comments Flowsheet Date 05/24/2024 Hidalgo Score Blood Edema Fundus Height Fundus Units Glucose Ketones Leukocytes Nitrite Labor Signs Protein Cervic Dilation Cervic Effacement Cervic Station trace Type Weight in lbs Pre/Post Dialysis Refused Weight 202.975775487720 BP Diastolic BP Location Tested BP Systolic [...] Weight in lbs Pre/Post Dialysis Refused Weight 205.564597234216 BP Diastolic BP Location Tested BP Systolic [...] Type Weight in lbs Pre/Post Dialysis Refused 202.647651931627 BP Diastolic BP Location Tested BP Systolic BP Type Fetus Heart Rate Present Fetus Movement Comments Patient sent to labor and haider. Flowsheet Date 07/05/2024 Hidalgo Score Blood Edema Fundus Height Fundus Units Glucose Ketones Leukocytes Nitrite Labor Signs Protein Cervic Dilation Cervic Effacement Cervic Station Type Weight in lbs Pre/Post Dialysis Refused Weight 187.980721196547 BP Diastolic BP Location Tested BP Systolic [...]
--- NOTE | 2024-11-16 16:02 | ED_ITS ---
HPI - Fall General Chief Complaint: Fall Stated Complaint: buttock pain Time Seen by Provider: 11/16/24 15:58 Source: patient Mode of arrival: ambulatory History of Present Illness HPI Narrative: tripped, ground level fall, landed on her bottom 2 days ago complaining of tailbone pain, no other injuries Related Data Home Medications ?Medication ?Instructions ?Recorded ?Confirmed ?Last Taken ?Type vit no.95-ferrous 1 tablet PO DAILY 05/31/24 07/20/24 07/20/24 History fumarate 28 mg-folic acid 800 mcg tablet () hydroxyzine HCl 25 mg tablet 25 mg PO HS 07/20/24 07/20/24 07/19/24 History Allergies Allergy/AdvReac Type Severity Reaction Status Date / Time No Known Allergies Allergy Verified 11/16/24 15:53 Review of Systems Review of Systems: All systems reviewed & are unremarkable except as noted in HPI and below PMFSH Past Medical History Medical History Chorioamnionitis, delivered, current hospitalization Social History Social History Smoking status: Never smoker Substance use: never Do You Feel Safe in your Home?: Yes Lack of Transportation: No Lack of Food: Never True Current Housing: I Have Housing Concerned About Future Housing: No Difficulty Paying Gas/Electric Bills: No Difficulty Paying for Meds: No Currently Unemployed: No Education: High School Diploma/GED Difficulty w/ Childcare or Family Care: No Living arrangements: with family Spiritual care concerns: No Exam Narrative: General appearance: Well-developed, well-nourished Skin: Normal color Head: Normocephalic, nontraumatic Neck: Supple, nontender Chest and respiratory: Airway patent, no respiratory distress, no accessory muscle use Heart: Regular rate/rhythm Abdomen: Soft, nontender, no organomegaly, quiet bowel sounds Vascular: Normal peripheral pulses, normal capillary refill. 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, no gross motor deficit Course Vital Signs Vital signs: Vital Signs Temperature 36.2 C L 11/16/24 15:50 Pulse Rate 66 11/16/24 15:50 Respiratory Rate 20 11/16/24 15:50 Blood Pressure 137/62 11/16/24 15:50 Pulse Oximetry 100 11/16/24 15:50 Oxygen Delivery Room Air 11/16/24 15:50 Temperature 36.2 C L 11/16/24 15:50 Pulse Rate 66 11/16/24 15:50 Respiratory Rate 20 11/16/24 15:50 Blood Pressure 137/62 11/16/24 15:50 Pulse Oximetry 100 11/16/24 15:50 Oxygen Delivery Room Air 11/16/24 15:50 MDM - Fall Imaging Data Radiologist's impression: Impressions Lumbar Spine CT 11/16/24 16:27 IMPRESSION: No acute fracture or traumatic malalignment in the lumbar spine. ADDENDUM: 11/16/24 1720 Additional imaging was obtained to completely cover the sacrococcygeal region in the [id number]. Minimally comminuted, predominantly transverse fracture of the sacrum at the S5 level with 2 mm anterior displacement. A subtle fracture line may extend superiorly into the lateral portion of the S4 segment on the left. No definite neural foraminal involvement. Critical Care Time Critical Care Time Critical Care Time: No Discharge Plan Discharge Clinical Impression: Closed sacral fracture Patient Disposition: Home Condition: Stable Instructions: Sacral Fracture (ED) Additional Instructions: Return if symptoms are worsening , call your family physician for appointment, take Tylenol as as needed for aches and pain, continue home medications. Rest: Avoid activities that aggravate the pain is crucial for healing Apply ice packs 20 minutes on 20 minutes off for the 1st few days can help reduce swelling and pain. Heat can be used later to promote circulation and healing. Anti-inflammatory medicine like ibuprofen or naproxen can help manage pain, Using a donut or wedge cushion when sitting can help relieve pressure on the tailbone Maintain good posture Stretching Pelvic floor exercise Avoid constipation Patient Language: Luxembourgish Prescriptions: New tramadol 50 mg tablet 50 mg PO Q4H PRN (Reason: pain) Qty: 30 0RF naproxen [Naprosyn] 500 mg tablet 500 mg PO BID PRN (Reason: pain) Qty: 20 0RF No Action ondansetron 4 mg tablet,disintegrating 4 mg PO Q8H Qty: 20 0RF PNV no.95-ferrous fumarate-FA [] 28 mg iron- 800 mcg tablet 1 tablet PO DAILY hydroxyzine HCl 25 mg tablet 25 mg PO HS hydrocodone-acetaminophen 5-325 mg tablet 1 - 2 tablet PO Q6H PRN (Reason: pain) Qty: 10 0RF Follow-up/Referrals: Rudy Valenzuela DO [Physician] -
[2024-11-16] MEDS: IBUPROFEN 600 MG TABLET PO (17:06)
[2024-11-16] MEDS: HYDROcodone/acetaminophen (*CRX) 5-325 MG TABLET 1 TAB PO (17:07)
[2024-11-16 17:39] VITALS: BP 106/59; PULSE 63; RESP 18; TEMP 37.1; O2SAT 100
== END 2024-11-16 17:55 | disposition home or self-care (01) ==
PROVIDERS: Emergency Provider Emergency Medicine; Referring Provider Family Medicine
DX: S32.10XA Unspecified fracture of sacrum, initial encounter for closed fracture (principal); W01.0XXA Fall on same level from slipping, tripping and stumbling without subsequent striking against object, initial encounter
CPT/HCPCS: 72131; 99284; A9270

== ENCOUNTER 2024-12-01 09:28 | Outpatient (CLI) | payer OTHER, SELFPAY ==
--- OUTSIDE RECORDS SUMMARY | 2024-12-01 09:32 | XMS_ITS | Continuity of Care Document ---
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 Name Role Phone Mina JARRETT, Debbie Unavailable Unavailable Procedures Procedure Date Office/outpatient Visit, Est Office/outpatient Visit, Est Eye Exam Established Pt Eye Exam, New Patient Advance Directives Directive Yes / No Effective Date File Name No Information Encounters Encounter Description Practice Location Reason(s) For Visit Diagnoses Date Provider Providers Copied on Encounter Office/outpa tient Visit, [facility], [address] [place] [address] [address], [place], [place], [id number], tel:[phone] [place] Professional No Information Oct-0 9-201 0 Mina Debbie. [address] [employer], [facility] [address], [place], [address], [place]. tel:[phone] Office/outpa tient Visit, [facility], [address] [place] [address] [address], [place], [place], [id number], [place] tel:[phone] [facility] [place] Professional No Information Oct-0 6-201 0 Mina Debbie. [address], [address], [place], [address], [place]. tel:[phone] [facility], [address], [place], [place], [id number], [place] tel:[phone] [place] Professional No Information Oct-0 3-201 0 Mina Debbie. [address], [address], [place], [address], [place]. tel:[phone] [facility], [address], [place], [place], [id number], [place] tel:[phone] SEC [facility] Professional No Information 201 0 Minamariano Gibbslpi. [address], [address], [place], [address], [place]. tel:[phone] Family History Family Member Type Diagnosis Age At Onset No Information Payers Payer name Insurance type Covered green party ID Authoriza tion(s) No Information Social History Type Description Quantity Date Captured Comments Sex Female Smoking Status No Information Chief Complaint And Reason For Visit No Information Reason For Referral Reason For Referral No Information History Of Present Illness Encounter Date Complaint History Of Prese nt Illness No Information Functional Status Date Functional Assessmen t No Information Instructions Date Instruction Additional Infor mation No Information Assessments Type Assessment Date No Information Patient Care Teams Name Effective Dates (start - stop) Status Members No Information
[2024-12-01 10:09] LABS: Hematocrit 36.9 % (35.0-49.0); Hemoglobin 12.0 g/dL (12.0-15.0); Immature Granulocyte Percent A 0.2 % (0.0-0.0); Immature Platelet Fraction Pct 4.5 % (1.0-7.0); Lymphocytes Absolute Auto 0.66 K/mm3 (1.10-4.50); Mean Corpuscular HGB Conc 32.5 g/dL (32-36); Mean Corpuscular Hemoglobin 29.0 pg (27.0-31.0); Mean Corpuscular Volume 89.1 fL (78.0-102.0); Nucleated Red Blood Cells Absolute Auto 0.00 K/mm3 (0.00-0.00); Nucleated Red Blood Cells Perc 0.0 % (0-0.0); Platelet Count Result 129 K/mm3 (150-420); Red Blood Count 4.14 M/mm3 (4.20-5.40); White Blood Count 4.6 K/mm3 (4.8-10.8)
[2024-12-01 10:41] LABS: Alanine Aminotransferase 18 U/L (6-35); Albumin Level 3.9 g/dL (3.5-5.1); Alkaline Phosphatase 62 U/L (38-126); Anion Gap 2 mmol/L (4-12); Aspartate Amino Transferase 22 U/L (14-36); Bilirubin,Total 0.8 mg/dL (0.2-1.3); Blood Urea Nitrogen 10 mg/dL (7-17); Calcium 8.6 mg/dL (8.4-10.2); Carbon Dioxide 27 mmol/L (22-30); Chloride 107 mmol/L (98-107); Cholesterol 89 mg/dL (0-200); Estimated Glomerular Filt Rate > 60; Glucose 86 mg/dL (65-110); HDL Direct 51 mg/dL; Osmolality Calculated 280 mOsm/kg (285-295); Potassium 3.7 mmol/L (3.4-5.0); Sodium 136 mmol/L (137-145); Total Protein 6.6 g/dL (6.3-8.2); Triglycerides 67 mg/dL (<150)
== END 2024-12-01 09:29 | disposition home or self-care (01) ==
LOC: CHSLAB 09:28
PROVIDERS: PCP Family Medicine; Visit Provider Family Medicine
DX: Z00.00 Encounter for general adult medical examination without abnormal findings (principal)
CPT/HCPCS: 36415; 80053; 80061; 85025; 85055